=== PATIENT | male | born 1945 | race Caucasian/White ===

== ENCOUNTER 2017-12-03 08:30 | Inpatient (IN) | payer MEDICARE, BC ==
[2017-12-03 09:03] LABS: CHLORIDE,CL 97 mmol/L (98-107); SODIUM,NA 133 mmol/L (136-145)
--- NOTE | 2017-12-03 09:38 | EDM.PDOC ---
ED HPI GENERAL MEDICAL PROBLEM - General Chief Complaint: Fever Stated Complaint: Fever, Cough Time Seen by Provider: 12/03/17 09:10 Source of Information: Reports: Patient, Longterm Records History Limitations: Reports: No Limitations - History of Present Illness INITIAL COMMENTS - FREE TEXT/NARRATIVE: Patient is a 72-year-old resident of the [facility] who was brought here because of hypoxia his oxygen saturations at home were 80% on room air improved to about 92% on 3 L associated with the symptoms were fever cough and chest congestion patient was transferred for evaluation Onset: Gradual Duration: Day(s): (one), Getting Worse Location: Reports: Chest Quality: Reports: Ache Severity: Moderate Improves with: Reports: None Worsens with: Reports: None Context: Reports: Activity Treatments CHERRY GROWER: Reports: Oxygen - Related Data Allergies Allergy/AdvReac Type Severity Reaction Status Date / Time No Known Allergies Allergy Verified 09/06/17 14:15 Home Meds: Home Meds Acetaminophen [Tylenol Extra Strength] 1,000 mg PO DAILY PRN 08/28/14 [History] Acetaminophen [Tylenol Extra Strength] 1,000 mg PO DAILY@1200 08/28/14 [History] Aspirin [Children's Aspirin] 81 mg PO QAM 08/28/14 [History] Benztropine Mesylate 0.5 mg PO BID 08/28/14 [History] Bisacodyl [Dulcolax] 5 - 15 mg PO DAILY PRN 08/28/14 [History] Cholecalciferol (Vitamin D3) [Vitamin D] 2,000 units PO QAM 08/28/14 [History] Cyclobenzaprine [Flexeril] 10 mg PO DAILY@1200 08/28/14 [History] Phenytoin Sodium Extended 300 mg PO BEDTIME 08/28/14 [History] Simvastatin [Zocor] 40 mg PO BEDTIME 08/28/14 [History] carBAMazepine [TEGretol XR] 100 mg PO BID 08/28/14 [History] carBAMazepine [TEGretol XR] 200 mg PO BID 08/28/14 [History] Aspirin [Halfprin] 81 mg PO DAILY 12/03/17 [History] diphenhydrAMINE HCl/Zinc Acet [Benadryl Itch Stopping Crm] 28.3 gm TP Q4HR PRN 12/03/17 [History] Social & Family History - Tobacco Use Smoking Status *Q: Former Smoker ED ROS GENERAL - Review of Systems Review Of Systems: See Below Constitutional: Reports: Weakness HEENT: Reports: Rhinitis Respiratory: Reports: Shortness of Breath, Wheezing, Cough, Sputum Cardiovascular: Reports: Palpitations Endocrine: Reports: No Symptoms GI/Abdominal: Reports: No Symptoms, Constipation : Reports: No Symptoms Musculoskeletal: Reports: No Symptoms Skin: Reports: No Symptoms Neurological: Reports: Seizure (By history last seizure many years ago), Difficulty Walking, Gait Disturbance, Other (Right side paralysis unable to move his arm but just to the fingers able to ambulate does wear brace) Psychiatric: Reports: Depression Hematologic/Lymphatic: Reports: No Symptoms Immunologic: Reports: No Symptoms ED EXAM, GENERAL - Physical Exam Exam: See Below Exam Limited By: Physical Impairment General Appearance: Alert, WD/WN, No Apparent Distress Ears: Normal External Exam, Normal Canal, Hearing Grossly Normal, Normal TMs Ear Exam: Bilateral Ear: Auricle Normal, Canal Normal, TM normal Nose: Nasal Drainage, Clear Rhinorrhea Throat/Mouth: Normal Inspection Neck: Normal Inspection, Supple, Non-Tender, Full Range of Motion Respiratory/Chest: Decreased Breath Sounds, Rales Cardiovascular: Regular Rate, Rhythm GI/Abdominal: Normal Bowel Sounds, No Organomegaly, No Mass (Male) Exam: Deferred Rectal (Males) Exam: Deferred Back Exam: Decreased Range of Motion, Muscle Spasm Extremities: Limited Range of Motion (Right leg and right arm) Neurological: Alert, Oriented, CN II-XII Intact, Normal Cognition, Normal Gait, Normal Reflexes, No Motor/Sensory Deficits Psychiatric: Depressed Mood Skin Exam: Warm, Dry, Intact, Normal Color, No Rash Lymphatic: No Adenopathy Course - Vital Signs Last Recorded V/S: Last Vital Signs Temp 102.5 F H 12/03/17 08:30 Pulse 115 H 12/03/17 08:30 Resp 28 H 12/03/17 08:30 BP 138/72 12/03/17 08:30 Pulse Ox 80 L 12/03/17 08:30 - Orders/Labs/Meds Orders: Active Orders 24 hr Category Date Time Status EKG Documentation Completion [RC] ASDIRECTED Care 12/03/17 09:09 Ordered Oxygen Therapy Adult [Oxygen Therapy, ED] [RC] Care 12/03/17 08:30 Active CONTINUOUS Chest 2V [CR] Stat Exams 12/03/17 08:31 Ordered CULTURE BLOOD [BC] Stat Lab 12/03/17 08:35 Received CULTURE BLOOD [BC] Stat Lab 12/03/17 08:45 Received TROPONIN I [CHEM] Stat Lab 12/03/17 Ordered EKG 12 Lead [EK] Stat Ther 12/03/17 09:08 Ordered Labs: Laboratory Tests 12/03/17 12/03/17 12/03/17 Range/Units 08:35 08:35 08:35 WBC 7.7 (4.0-10.2) K/uL RBC 4.65 (4.33-5.41) M/uL Hgb 14.5 (13.1-16.8) g/dL Hct 43.0 (39.0-49.0) % MCV 92.5 (84.0-98.0) fL MCH 31.2 (28.2-33.3) pg MCHC 33.7 (31.7-36.0) g/dL RDW 13.6 (11.2-14.1) % Plt Count 172 (150-350) K/uL Neut % (Auto) 77.0 (45.0-80.0) % Lymph % (Auto) 4.8 L (10.0-50.0) % [place] % (Auto) 17.5 H (2.0-14.0) % Eos % (Auto) 0.4 (0.0-5.0) % Baso % (Auto) 0.3 (0.0-2.0) % Neut # (Auto) 5.95 (1.40-7.00) K/uL Lymph # (Auto) 0.37 L (0.50-3.50) K/uL [place] # (Auto) 1.35 H (0.00-1.00) K/uL Eos # (Auto) 0.03 (0.00-0.50) K/uL Baso # (Auto) 0.02 (0.00-0.20) K/uL Sodium 133 L (136-145) mmol/L Potassium 4.7 (3.5-5.1) mmol/L Chloride 97 L (98-107) mmol/L Carbon Dioxide 26.2 (21.0-32.0) mmol/L BUN 16 (7-18) mg/dL Creatinine 0.73 (0.51-1.17) mg/dL Est Cr Clr Drug Dosing 75.78 mL/min Estimated GFR (MDRD) > 60 mL/min Glucose 115 H (74-106) mg/dL Lactic Acid 0.9 (0.4-2.0) mmol/L Calcium 8.3 L (8.5-10.1) mg/dL NT-Pro-B Natriuret Pep 276 H (0-125) pg/mL Departure - Departure Time of Disposition: 10:28 Disposition: Admitted As Inpatient 68 Condition: Fair Clinical Impression: Pneumonia, Hypoxia, Pneumonia, aspiration, Tachycardia with heart rate 100-120 beats per minute - Discharge Information Referrals: Sheets-Annamaria Welch MD [Primary Care Provider] - - Problem List & Annotations (1) Hypoxia SNOMED Code(s): 887496874 Code(s): R09.02 - HYPOXEMIA Status: Acute Annotation/Comment:: Secondary to pneumonia history of COPD which complicates condition (2) Pneumonia, aspiration SNOMED Code(s): 409946571 Code(s): J69.0 - PNEUMONITIS DUE TO INHALATION OF FOOD AND VOMIT Status: Acute (3) Pneumonia, aspiration SNOMED Code(s): 969472798 Code(s): J69.0 - PNEUMONITIS DUE TO INHALATION OF FOOD AND VOMIT Status: Acute Annotation/Comment:: Patient will be admitted to the hospital for supplemental oxygen and antibiotics until cultures return Qualifiers: Aspiration pneumonia type: due to regurgitated food Lung location: lower lobe of lung Qualified Code(s): J69.0 - Pneumonitis due to inhalation of food and vomit (4) Tachycardia with heart rate 100-120 beats per minute SNOMED Code(s): 8386963 Code(s): R00.0 - TACHYCARDIA, UNSPECIFIED Status: Acute Annotation/ Comment:: Secondary to pneumonia and hypoxia once pneumonia is treated patient tachycardia should resolve - Problem List Review Problem List Initiated/Reviewed/Updated: Yes - My Orders Last 24 Hours: My Active Orders 12/03/17 TROPONIN I [CHEM] Stat 12/03/17 08:30 Oxygen Therapy Adult [Oxygen Therapy, ED] [RC] CONTINUOUS 12/03/17 08:31 Chest 2V [CR] Stat 12/03/17 08:35 CULTURE BLOOD [BC] Stat 12/03/17 08:45 CULTURE BLOOD [BC] Stat 12/03/17 09:08 EKG 12 Lead [EK] Stat 12/03/17 09:09 EKG Documentation Completion [RC] ASDIRECTED - Assessment/Plan Admission H&P: Please use this note as an admission H&P Last 24 Hours: My Active Orders 12/03/17 TROPONIN I [CHEM] Stat 12/03/17 08:30 Oxygen Therapy Adult [Oxygen Therapy, ED] [RC] CONTINUOUS 12/03/17 08:31 Chest 2V [CR] Stat 12/03/17 08:35 CULTURE BLOOD [BC] Stat 12/03/17 08:45 CULTURE BLOOD [BC] Stat 12/03/17 09:08 EKG 12 Lead [EK] Stat 12/03/17 09:09 EKG Documentation Completion [RC] ASDIRECTED Plan: Plan is to admit the patient at this time [facility] patient [facility] to stay here I will admit him to Dr. barnes service
[2017-12-03] MEDS: Albuterol/Ipratropium 3.0-0.5 MG/3 ML Neb Soln NEB ONE (10:04)
[2017-12-03] MEDS ORDERED: Piperacillin/Tazobactam 3.375 GM in Sodium Chloride 0.9% 100 ML IV SCH (10:45)
[2017-12-03] MEDS: Albuterol/Ipratropium 3.0-0.5 MG/3 ML Neb Soln NEB SCH ×3 (11:34→19:58)
[2017-12-03] MEDS: Levofloxacin/Dextrose 5%-Water 500 MG in Premix Bag 1 BAG IV SCH (11:43)
[2017-12-03] MEDS: Sodium Chloride 0.9% 10 ML Syringe FLUSH PRN (11:45)
[2017-12-03] MEDS: Acetaminophen 500 MG Tab PO PRN (12:14)
[2017-12-03] MEDS: Sodium Chloride 0.9% 1,000 ML IV SCH (12:50)
[2017-12-03] MEDS: Piperacillin/Tazobactam 3.375 GM in Sodium Chloride 0.9% 100 ML IV SCH ×2 (15:06→19:58)
[2017-12-03] MEDS: Bisacodyl 5 MG Tab PO PRN (15:07)
[2017-12-03] MEDS: BENZTROPINE MESYLATE 0.5 MG PO SCH (17:33)
[2017-12-03] MEDS: methylPREDNISolone Sodium Succinate 125 MG/2 ML SDV IVPUSH SCH (20:34)
[2017-12-04] MEDS: Acetaminophen 500 MG Tab PO PRN (00:28)
[2017-12-04] MEDS: Albuterol/Ipratropium 3.0-0.5 MG/3 ML Neb Soln NEB SCH ×6 (00:28→19:37)
[2017-12-04] MEDS: methylPREDNISolone Sodium Succinate 125 MG/2 ML SDV IVPUSH SCH ×3 (01:45→19:36)
[2017-12-04] MEDS: Piperacillin/Tazobactam 3.375 GM in Sodium Chloride 0.9% 100 ML IV SCH ×4 (01:45→19:37)
[2017-12-04] MEDS: Sodium Chloride 0.9% 1,000 ML IV SCH ×2 (05:21→06:36)
[2017-12-04 07:59] LABS: CHLORIDE,CL 98 mmol/L (98-107); SODIUM,NA 134 mmol/L (136-145)
[2017-12-04] MEDS ORDERED: Aspirin 81 MG Tab.Chew PO SCH (08:00)
[2017-12-04] MEDS: Aspirin 81 MG Tab.EC PO SCH (08:06)
[2017-12-04] MEDS: Enoxaparin 30 MG/0.3 ML Syringe SUBCUT SCH (08:06)
[2017-12-04] MEDS: BENZTROPINE MESYLATE 0.5 MG PO SCH (08:20)
[2017-12-04] MEDS: Levofloxacin/Dextrose 5%-Water 500 MG in Premix Bag 1 BAG IV SCH (09:53)
[2017-12-04] MEDS: carBAMazepine 200 MG TAB.ER PO SCH ×2 (12:44→19:39)
[2017-12-04] MEDS: Albuterol/Ipratropium 3.0-0.5 MG/3 ML Neb Soln NEB ONE (12:47)
[2017-12-04] MEDS: metroNIDAZOLE/Normal Saline 500 MG in Premix Bag 1 BAG IV SCH ×2 (12:54→20:24)
[2017-12-04] MEDS: Cyclobenzaprine 10 MG Tab PO SCH (12:55)
[2017-12-04] MEDS: Acetaminophen 500 MG Tab PO SCH (12:55)
[2017-12-04] MEDS: carBAMazepine 100 MG Cap.ER PO SCH ×2 (13:18→19:38)
[2017-12-04] MEDS: Sodium Chloride 0.9% 10 ML Syringe FLUSH PRN ×2 (14:07→20:24)
[2017-12-04] MEDS: Sodium Chloride 0.9% 10 ML Syringe FLUSH SCH (19:35)
[2017-12-04] MEDS: Pantoprazole 40 MG Vial IVPUSH SCH (19:36)
[2017-12-04] MEDS: Phenytoin 100 MG Cap.ER PO SCH (19:37)
[2017-12-04] MEDS: Benztropine 1 MG Tab PO SCH (19:38)
[2017-12-04] MEDS: Simvastatin 20 MG Tab PO SCH (19:38)
--- NOTE | 2017-12-04 20:18 | PCM.PN ---
- General Info Date of Service: 12/04/17 Functional Status: Reports: Tolerating Diet - Review of Systems General: Reports: Fever HEENT: Reports: No Symptoms Pulmonary: Reports: Cough (harsh) Cardiovascular: Reports: No Symptoms Gastrointestinal: Reports: No Symptoms Genitourinary: Reports: No Symptoms Musculoskeletal: Reports: No Symptoms Skin: Reports: No Symptoms Neurological: Reports: Pre-Existing Deficit (right hemiparesis), Seizure, Difficulty Walking, Gait Disturbance, Other (right foot drop, expressive dysphasia) Psychiatric: Reports: No Symptoms - Patient Data Vitals - Most Recent: Last Vital Signs Temp 99.7 F 12/04/17 20:00 Pulse 105 H 12/04/17 20:00 Resp 20 12/04/17 20:00 BP 146/85 H 12/04/17 20:00 Pulse Ox 97 12/04/17 20:00 Weight - Most Recent: 162 lb 0.001 oz I&O - Last 24 Hours: Intake & Output 12/04/17 12/04/17 12/04/17 06:59 14:59 22:59 Intake Total 2300 1600 Output Total 550 Balance 2300 1050 Lab Results Last 24 Hours: Laboratory Results - last 24 hr 12/04/17 12/04/17 12/04/17 Range/Units 07:33 07:33 07:33 WBC 7.3 (4.0-10.2) K/uL RBC 4.42 (4.33-5.41) M/uL Hgb 13.8 (13.1-16.8) g/dL Hct 41.0 (39.0-49.0) % MCV 92.8 (84.0-98.0) fL MCH 31.2 (28.2-33.3) pg MCHC 33.7 (31.7-36.0) g/dL RDW 13.6 (11.2-14.1) % Plt Count 173 (150-350) K/uL Neut % (Auto) 89.4 H (45.0-80.0) % Lymph % (Auto) 7.7 L (10.0-50.0) % [place] % (Auto) 2.9 (2.0-14.0) % Eos % (Auto) 0.0 (0.0-5.0) % Baso % (Auto) 0.0 (0.0-2.0) % Neut # (Auto) 6.52 (1.40-7.00) K/uL Lymph # (Auto) 0.56 (0.50-3.50) K/uL [place] # (Auto) 0.21 (0.00-1.00) K/uL Eos # (Auto) 0.00 (0.00-0.50) K/uL Baso # (Auto) 0.00 (0.00-0.20) K/uL Sodium 134 L (136-145) mmol/L Potassium 3.6 (3.5-5.1) mmol/L Chloride 98 (98-107) mmol/L Carbon Dioxide 20.6 L (21.0-32.0) mmol/L BUN 13 (7-18) mg/dL Creatinine 0.71 (0.51-1.17) mg/dL Est Cr Clr Drug Dosing 77.89 mL/min Estimated GFR (MDRD) > 60 mL/min Glucose 158 H (74-106) mg/dL Calcium 7.3 L (8.5-10.1) mg/dL C-Reactive Protein 6.7 H (<=0.9) mg/dL Med Orders - Current: Current Medications Acetaminophen (Tylenol Extra Strength) 1,000 mg PO DAILY PRN PRN Reason: Pain Last Admin: 12/04/17 00:28 Dose: 1,000 mg Acetaminophen (Tylenol Extra Strength) 1,000 mg PO DAILY@1200 [facility] Last Admin: 12/04/17 12:55 Dose: 1,000 mg Albuterol (Proventil Neb Soln) 2.5 mg NEB Q2H PRN PRN Reason: Dyspnea Albuterol/Ipratropium (Duoneb 3.0-0.5 Mg/3 Ml) 3 ml NEB QIDRT [facility] Last Admin: 12/04/17 19:37 Dose: 3 ml Aspirin (Halfprin) 81 mg PO DAILY [facility] Last Admin: 12/04/17 08:06 Dose: 81 mg Benztropine Mesylate (Cogentin) 0.5 mg PO BID@0800,2000 [facility] Last Admin: 12/04/17 19:38 Dose: 0.5 mg Bisacodyl (Dulcolax) 5 - 15 mg PO DAILY PRN PRN Reason: Constipation Last Admin: 12/03/17 15:07 Dose: 15 mg Carbamazepine (Tegretol Xr) 100 mg PO BID@ [facility] Last Admin: 12/04/17 19:38 Dose: 100 mg Carbamazepine (Tegretol Er) 200 mg PO BID@ [facility] Last Admin: 12/04/17 19:39 Dose: 200 mg Cholecalciferol (Vitamin D3) 2,000 units PO QAM [facility] Cyclobenzaprine HCl (Flexeril) 10 mg PO DAILY@1200 [facility] Last Admin: 12/04/17 12:55 Dose: 10 mg Enoxaparin Sodium (Lovenox) 30 mg SUBCUT DAILY [facility] Last Admin: 12/04/17 08:06 Dose: 30 mg Piperacillin Sod/Tazobactam (Sod 3.375 gm/ Sodium Chloride) 100 mls @ 200 mls/ hr IV Q6H [facility] Last Admin: 12/04/17 19:37 Dose: 200 mls/hr Metronidazole 500 mg/ Premix 100 mls @ 100 mls/hr IV Q8H [facility] Last Admin: 12/04/17 12:54 Dose: 100 mls/hr Methylprednisolone Sodium Succinate (Solu-Medrol) 40 mg IVPUSH Q12HR [facility] Last Admin: 12/04/17 19:36 Dose: 40 mg Pantoprazole Sodium (Protonix Iv) 40 mg IVPUSH BEDTIME [facility] Last Admin: 12/04/17 19:36 Dose: 40 mg Phenytoin Sodium (Phenytoin) 300 mg PO BEDTIME [facility] Last Admin: 12/04/17 19:37 Dose: 300 mg Senna/Docusate Sodium (Senna Plus) 1 tab PO BID@ [facility] Last Admin: 12/04/17 19:38 Dose: 1 tab Simvastatin (Zocor) 40 mg PO BEDTIME [facility] Last Admin: 12/04/17 19:38 Dose: 40 mg Sodium Chloride (Saline Flush) 10 ml FLUSH ASDIRECTED PRN PRN Reason: Keep Vein Open Last Admin: 12/04/17 14:07 Dose: 10 ml Sodium Chloride (Saline Flush) 10 ml FLUSH Q12HR [facility] Last Admin: 12/04/17 19:35 Dose: 10 ml Discontinued Medications Albuterol/Ipratropium (Duoneb 3.0-0.5 Mg/3 Ml) 3 ml NEB ONETIME ONE Stop: 12/03/17 10:00 Last Admin: 12/03/17 10:04 Dose: 3 ml Albuterol/Ipratropium (Duoneb 3.0-0.5 Mg/3 Ml) 3 ml NEB Q4HRRT [facility] Last Admin: 12/04/17 12:30 Dose: 3 ml Aspirin (Aspirin) 81 mg PO QAM [facility] Last Admin: 12/04/17 13:24 Dose: Not Given Levofloxacin/Dextrose 500 mg/ (Premix) 100 mls @ 100 mls/hr IV Q24H [facility] Last Admin: 12/04/17 09:53 Dose: 100 mls/hr Piperacillin Sod/Tazobactam (Sod 3.375 gm/ Sodium Chloride) 100 mls @ 200 mls/ hr IV Q6H [facility] Last Admin: 12/03/17 12:06 Dose: Not Given Sodium Chloride (Normal Saline) 1,000 mls @ 125 mls/hr IV ASDIRECTED [facility] Last Admin: 12/04/17 06:36 Dose: 125 mls/hr Methylprednisolone Sodium Succinate (Solu-Medrol) 125 mg IVPUSH Q6H [facility] Last Admin: 12/04/17 08:03 Dose: 125 mg Non-Formulary Medication (Benztropine Mesylate [Benztropine Mesylate]) 0.5 mg PO BID [facility] Last Admin: 12/04/17 08:20 Dose: 0.5 mg - Exam Quality Assessment: DVT Prophylaxis General: Alert, Cooperative HEENT: Mucous Membr. Moist/[place] Neck: Trachea Midline, No JVD Lungs: Normal Respiratory Effort, Rhonchi, Wheezing Cardiovascular: Regular Rate, Regular Rhythm GI/Abdominal Exam: Soft, Non-Tender, No Distention (Male) Exam: Deferred Back Exam: Normal Inspection Extremities: Non-Tender, Pedal Edema (right>left) Skin: Warm, Dry, Intact Neurological: Other (right hemiparesis, pre-existing) Psy/Mental Status: Alert, Normal Affect, Normal Mood - Problem List & Annotations (1) Left sided cerebral hemisphere cerebrovascular accident SNOMED Code(s): 304067934 Code(s): I63.9 - CEREBRAL INFARCTION, UNSPECIFIED Status: Chronic Priority: Medium Current Visit: Yes (2) Hypoxia SNOMED Code(s): 684244106 Code(s): R09.02 - HYPOXEMIA Status: Acute Priority: High Current Visit : Yes Annotation/Comment:: Secondary to pneumonia history of COPD which complicates condition (3) Pneumonia, aspiration SNOMED Code(s): 130284645 Code(s): J69.0 - PNEUMONITIS DUE TO INHALATION OF FOOD AND VOMIT Status: Acute Priority: High Current Visit: Yes Qualifiers: Aspiration pneumonia type: due to gastric secretions Laterality: bilateral Lung location: lower lobe of lung Qualified Code(s): J69.0 - Pneumonitis due to inhalation of food and vomit (4) Hemiparesis affecting right side as late effect of stroke SNOMED Code(s): 791471899 Code(s): I69.351 - HEMIPLGA FOLLOWING CEREBRAL INFRC AFF RIGHT DOMINANT SIDE Status: Chronic Priority: Medium Current Visit: Yes - Problem List Review Problem List Initiated/Reviewed/Updated: Yes - My Orders Last 24 Hours: My Active Orders 12/04/17 12:00 Acetaminophen [Tylenol Extra Strength] 1,000 mg PO DAILY@1200 Albuterol [Proventil Neb Soln] 2.5 mg NEB Q2H PRN Cyclobenzaprine [Flexeril] 10 mg PO DAILY@1200 metroNIDAZOLE/Normal Saline [Flagyl 500 MG in NS 100 ML] 500 mg Premix Bag 1 bag IV Q8H 12/04/17 12:04 PT Evaluation and Treatment [CONS] Routine 12/04/17 12:05 Consult to Speech Language Pathology [[employer]CTION[employer]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 Evaluation and Treatment] [CONS] Routine OT Evaluation and Treatment [CONS] Routine 12/04/17 12:10 RT Aerosol Therapy [RC] ASDIRECTED 12/04/17 12:25 CULTURE SPUTUM + SMEAR [RM] Routine 12/04/17 12:30 carBAMazepine [TEGretol XR] 100 mg PO BID@08,199912/04/17 12:45 carBAMazepine [TEGretol ER] 200 mg PO BID@799,199912/04/17 14:20 MRSA BY PCR [MREF] Routine 12/04/17 16:00 Albuterol/Ipratropium [DuoNeb 3.0-0.5 MG/3 ML] 3 ml NEB QIDRT 12/04/17 20:00 Docusate Sodium/Sennosides [Senna Plus] 1 tab PO BID@ Pantoprazole [ProTONIX IV] 40 mg IVPUSH BEDTIME Phenytoin 300 mg PO BEDTIME Simvastatin [Zocor] 40 mg PO BEDTIME Sodium Chloride 0.9% [Saline Flush] 10 ml FLUSH Q12HR methylPREDNISolone Sod Succ [Solu-MEDROL] 40 mg IVPUSH Q12HR 12/05/17 05:11 Abdomen 2V AP Flat Upright [CR] Routine BLOOD GAS VENOUS [BG] Routine CARBAMAZEPINE,TEGRETOL [CHEM] Routine CBC WITH AUTO DIFF [HEME] DAILY CMP [COMPREHENSIVE METABOLIC PN,CMP] [CHEM] DAILY CRP [C-REACTIVE PROTEIN] [CHEM] DAILY DILANTIN,PHENYTOIN [CHEM] Routine 12/05/17 08:00 Cholecalciferol (Vitamin D3) [Vitamin D3] 2,000 units PO QAM 12/06/17 05:11 CBC WITH AUTO DIFF [HEME] DAILY CMP [COMPREHENSIVE METABOLIC PN,CMP] [CHEM] DAILY CRP [C-REACTIVE PROTEIN] [CHEM] DAILY 12/07/17 05:11 CBC WITH AUTO DIFF [HEME] DAILY CMP [COMPREHENSIVE METABOLIC PN,CMP] [CHEM] DAILY CRP [C-REACTIVE PROTEIN] [CHEM] DAILY 12/07/17 08:00 Swallowing Function w Video [CR] Routine - Plan Plan:: 12/04/17 Mark Welch MD Feeling a little bit better. Still harsh cough. Aspiration pneumonia. Continue IV antibiotics and respiratory treatments.
[2017-12-05] MEDS: Albuterol 0.083% 2.5 MG/3 ML Neb Soln NEB PRN (00:31)
[2017-12-05] MEDS: Acetaminophen 500 MG Tab PO PRN ×2 (00:37→21:28)
[2017-12-05] MEDS: Sodium Chloride 0.9% 10 ML Syringe FLUSH PRN ×5 (01:40→19:31)
[2017-12-05] MEDS: Piperacillin/Tazobactam 3.375 GM in Sodium Chloride 0.9% 100 ML IV SCH ×4 (01:40→19:26)
[2017-12-05] MEDS: metroNIDAZOLE/Normal Saline 500 MG in Premix Bag 1 BAG IV SCH ×3 (04:05→20:09)
[2017-12-05 07:10] LABS: O2 DELIVERY DEVICE ROOM AIR
[2017-12-05 07:26] LABS: CHLORIDE,CL 101 mmol/L (98-107); SODIUM,NA 138 mmol/L (136-145)
[2017-12-05 07:35] LABS: BASE EXCESS VENOUS -2 mmol/L ((-2)-3); BICARBONATE,VENOUS 24 mmol/L (23-28); O2 SATURATION VENOUS 91 %; PCO2 VENOUS 47 mmHG (41-51); PH,VENOUS 7.32 (7.31-7.41); PO2 VENOUS 66 mmHG
[2017-12-05] MEDS: Aspirin 81 MG Tab.EC PO SCH (09:25)
[2017-12-05] MEDS: Cholecalciferol (Vitamin D3) 1,000 Unit Tab PO SCH (09:25)
[2017-12-05] MEDS: Benztropine 1 MG Tab PO SCH ×2 (09:25→19:28)
[2017-12-05] MEDS: Enoxaparin 30 MG/0.3 ML Syringe SUBCUT SCH (09:25)
[2017-12-05] MEDS: methylPREDNISolone Sodium Succinate 125 MG/2 ML SDV IVPUSH SCH ×2 (09:26→19:27)
[2017-12-05] MEDS: Albuterol/Ipratropium 3.0-0.5 MG/3 ML Neb Soln NEB SCH ×5 (09:27→19:27)
[2017-12-05] MEDS: Sodium Chloride 0.9% 10 ML Syringe FLUSH SCH ×2 (09:27→19:29)
[2017-12-05] MEDS: carBAMazepine 200 MG TAB.ER PO SCH ×2 (09:42→19:28)
[2017-12-05] MEDS: carBAMazepine 100 MG Cap.ER PO SCH ×2 (09:42→19:29)
[2017-12-05] MEDS: Acetaminophen 500 MG Tab PO SCH (12:07)
[2017-12-05] MEDS: Cyclobenzaprine 10 MG Tab PO SCH (12:07)
[2017-12-05] MEDS: Potassium Chloride 10 MEQ Tab.ER PO SCH ×2 (13:26→17:51)
[2017-12-05] MEDS: Pantoprazole 40 MG Vial IVPUSH SCH (19:27)
[2017-12-05] MEDS: Phenytoin 100 MG Cap.ER PO SCH (19:28)
[2017-12-05] MEDS: Simvastatin 20 MG Tab PO SCH (19:29)
--- NOTE | 2017-12-05 23:05 | PCM.PN ---
- General Info Date of Service: 12/05/17 Functional Status: Reports: Pain Controlled - Review of Systems General: Reports: No Symptoms HEENT: Reports: No Symptoms Pulmonary: Reports: Shortness of Breath (markedly improved) Cardiovascular: Reports: No Symptoms Gastrointestinal: Reports: No Symptoms Genitourinary: Reports: No Symptoms Musculoskeletal: Reports: Joint Pain (right elbow pain), Joint Swelling (right elbow) Skin: Reports: No Symptoms Neurological: Reports: Pre-Existing Deficit, Trouble Speaking, Difficulty Walking, Gait Disturbance Psychiatric: Reports: No Symptoms - Patient Data Vitals - Most Recent: Last Vital Signs Temp 98.9 F 12/05/17 19:24 Pulse 79 12/05/17 19:24 Resp 20 12/05/17 19:24 BP 134/85 12/05/17 19:24 Pulse Ox 93 L 12/05/17 19:24 Weight - Most Recent: 162 lb 0.001 oz I&O - Last 24 Hours: Intake & Output 12/05/17 12/05/17 12/05/17 06:59 14:59 22:59 Intake Total 420 1560 360 Output Total 700 Balance -280 1560 360 Lab Results Last 24 Hours: Laboratory Results - last 24 hr 12/05/17 12/05/17 12/05/17 Range/Units 06:43 06:43 06:43 WBC 7.5 (4.0-10.2) K/uL RBC 4.22 L (4.33-5.41) M/uL Hgb 13.2 (13.1-16.8) g/dL Hct 39.0 (39.0-49.0) % MCV 92.4 (84.0-98.0) fL MCH 31.3 (28.2-33.3) pg MCHC 33.8 (31.7-36.0) g/dL RDW 13.3 (11.2-14.1) % Plt Count 194 (150-350) K/uL Neut % (Auto) 73.3 (45.0-80.0) % Lymph % (Auto) 11.6 (10.0-50.0) % [place] % (Auto) 15.0 H (2.0-14.0) % Eos % (Auto) 0.0 (0.0-5.0) % Baso % (Auto) 0.1 (0.0-2.0) % Neut # (Auto) 5.47 (1.40-7.00) K/uL Lymph # (Auto) 0.87 (0.50-3.50) K/uL [place] # (Auto) 1.12 H (0.00-1.00) K/uL Eos # (Auto) 0.00 (0.00-0.50) K/uL Baso # (Auto) 0.01 (0.00-0.20) K/uL VBG pH 7.32 (7.31-7.41) VBG pCO2 47 (41-51) mmHG VBG pO2 66 mmHG VBG HCO3 24 (23-28) mmol/L VBG Total CO2 26 mmol/L VBG O2 Saturation 91 % VBG Base Excess -2 ((-2)-3) mmol/L O2 Delivery Device Room air Sodium 138 (136-145) mmol/L Potassium 3.3 L (3.5-5.1) mmol/L Chloride 101 (98-107) mmol/L Carbon Dioxide 25.5 (21.0-32.0) mmol/L BUN 10 (7-18) mg/dL Creatinine 0.71 (0.51-1.17) mg/dL Est Cr Clr Drug Dosing 77.89 mL/min Estimated GFR (MDRD) > 60 mL/min Glucose 98 (74-106) mg/dL Calcium 7.4 L (8.5-10.1) mg/dL Total Bilirubin 0.2 (0.2-1.0) mg/dL AST 25 (15-37) U/L ALT 24 (12-78) U/L Alkaline Phosphatase 55 (46-116) IU/L C-Reactive Protein 2.8 H (<=0.9) mg/dL Total Protein 6.4 (6.4-8.2) g/dL Albumin 3.1 L (3.4-5.0) g/dL Phenytoin 5 L (10-20) ug/dL Carbamazepine 7 (4-12) ug/mL Med Orders - Current: Current Medications Acetaminophen (Tylenol Extra Strength) 1,000 mg PO DAILY PRN PRN Reason: Pain Last Admin: 12/05/17 21:28 Dose: 1,000 mg Acetaminophen (Tylenol Extra Strength) 1,000 mg PO DAILY@1200 [facility] Last Admin: 12/05/17 12:07 Dose: 1,000 mg Albuterol (Proventil Neb Soln) 2.5 mg NEB Q2H PRN PRN Reason: Dyspnea Last Admin: 12/05/17 00:31 Dose: 2.5 mg Albuterol/Ipratropium (Duoneb 3.0-0.5 Mg/3 Ml) 3 ml NEB QIDRT [facility] Last Admin: 12/05/17 19:27 Dose: 3 ml Aspirin (Halfprin) 81 mg PO DAILY [facility] Last Admin: 12/05/17 09:25 Dose: 81 mg Benztropine Mesylate (Cogentin) 0.5 mg PO BID@ [facility] Last Admin: 12/05/17 19:28 Dose: 0.5 mg Bisacodyl (Dulcolax) 5 - 15 mg PO DAILY PRN PRN Reason: Constipation Last Admin: 12/03/17 15:07 Dose: 15 mg Carbamazepine (Tegretol Xr) 100 mg PO BID@ [facility] Last Admin: 12/05/17 19:29 Dose: 100 mg Carbamazepine (Tegretol Er) 200 mg PO BID@ [facility] Last Admin: 12/05/17 19:28 Dose: 200 mg Cholecalciferol (Vitamin D3) 2,000 units PO QAM [facility] Last Admin: 12/05/17 09:25 Dose: 2,000 units Cyclobenzaprine HCl (Flexeril) 10 mg PO DAILY@1200 [facility] Last Admin: 12/05/17 12:07 Dose: 10 mg Enoxaparin Sodium (Lovenox) 30 mg SUBCUT DAILY [facility] Last Admin: 12/05/17 09:25 Dose: 30 mg Piperacillin Sod/Tazobactam (Sod 3.375 gm/ Sodium Chloride) 100 mls @ 200 mls/ hr IV Q6H [facility] Last Admin: 12/05/17 19:26 Dose: 200 mls/hr Metronidazole 500 mg/ Premix 100 mls @ 100 mls/hr IV Q8H [facility] Last Admin: 12/05/17 20:09 Dose: 100 mls/hr Methylprednisolone Sodium Succinate (Solu-Medrol) 40 mg IVPUSH Q12HR [facility] Last Admin: 12/05/17 19:27 Dose: 40 mg Pantoprazole Sodium (Protonix Iv) 40 mg IVPUSH BEDTIME [facility] Last Admin: 12/05/17 19:27 Dose: 40 mg Phenytoin Sodium (Phenytoin) 300 mg PO BEDTIME [facility] Last Admin: 12/05/17 19:28 Dose: 300 mg Potassium Chloride (Klor-Con 10) 10 meq PO BID [facility] Last Admin: 12/05/17 17:51 Dose: 10 meq Senna/Docusate Sodium (Senna Plus) 1 tab PO BID@0800,2000 [facility] Last Admin: 12/05/17 19:28 Dose: 1 tab Simvastatin (Zocor) 40 mg PO BEDTIME [facility] Last Admin: 12/05/17 19:29 Dose: 40 mg Sodium Chloride (Saline Flush) 10 ml FLUSH ASDIRECTED PRN PRN Reason: Keep Vein Open Last Admin: 12/05/17 19:31 Dose: 10 ml Sodium Chloride (Saline Flush) 10 ml FLUSH Q12HR [facility] Last Admin: 12/05/17 19:29 Dose: 10 ml Discontinued Medications Albuterol/Ipratropium (Duoneb 3.0-0.5 Mg/3 Ml) 3 ml NEB ONETIME ONE Stop: 12/03/17 10:00 Last Admin: 12/03/17 10:04 Dose: 3 ml Albuterol/Ipratropium (Duoneb 3.0-0.5 Mg/3 Ml) 3 ml NEB Q4HRRT [facility] Last Admin: 12/04/17 12:30 Dose: 3 ml Aspirin (Aspirin) 81 mg PO QAM [facility] Last Admin: 12/04/17 13:24 Dose: Not Given Levofloxacin/Dextrose 500 mg/ (Premix) 100 mls @ 100 mls/hr IV Q24H [facility] Last Admin: 12/04/17 09:53 Dose: 100 mls/hr Piperacillin Sod/Tazobactam (Sod 3.375 gm/ Sodium Chloride) 100 mls @ 200 mls/ hr IV Q6H [facility] Last Admin: 12/03/17 12:06 Dose: Not Given Sodium Chloride (Normal Saline) 1,000 mls @ 125 mls/hr IV ASDIRECTED [facility] Last Admin: 12/04/17 06:36 Dose: 125 mls/hr Methylprednisolone Sodium Succinate (Solu-Medrol) 125 mg IVPUSH Q6H [facility] Last Admin: 12/04/17 08:03 Dose: 125 mg Non-Formulary Medication (Benztropine Mesylate [Benztropine Mesylate]) 0.5 mg PO BID [facility] Last Admin: 12/04/17 08:20 Dose: 0.5 mg - Exam General: Alert, Cooperative, No Acute Distress HEENT: Mucous Membr. Moist/[place] Neck: Trachea Midline, No JVD Lungs: Normal Respiratory Effort, Decreased Breath Sounds Cardiovascular: Regular Rate, Regular Rhythm GI/Abdominal Exam: Soft, Non-Tender, No Distention (Male) Exam: Deferred Back Exam: Normal Inspection Extremities: Non-Tender, Pedal Edema, Joint Swelling (right elbow) Skin: Warm, Dry, Intact, Rash (bilateral lower extremities hyper-ruber and hemosiderosis) Neurological: Other (pre-existing deficit) Psy/Mental Status: Alert, Normal Affect, Normal Mood - Problem List & Annotations (1) Left sided cerebral hemisphere cerebrovascular accident SNOMED Code(s): 191244791 Code(s): I63.9 - CEREBRAL INFARCTION, UNSPECIFIED Status: Chronic Priority: Medium Current Visit: Yes (2) Hypoxia SNOMED Code(s): 448358354 Code(s): R09.02 - HYPOXEMIA Status: Acute Priority: High Current Visit : Yes Annotation/Comment:: Secondary to pneumonia history of COPD which complicates condition (3) Pneumonia, aspiration SNOMED Code(s): 428805588 Code(s): J69.0 - PNEUMONITIS DUE TO INHALATION OF FOOD AND VOMIT Status: Acute Priority: High Current Visit: Yes Qualifiers: Aspiration pneumonia type: due to gastric secretions Laterality: bilateral Lung location: lower lobe of lung Qualified Code(s): J69.0 - Pneumonitis due to inhalation of food and vomit (4) Hemiparesis affecting right side as late effect of stroke SNOMED Code(s): 298527024 Code(s): I69.351 - HEMIPLGA FOLLOWING CEREBRAL INFRC AFF RIGHT DOMINANT SIDE Status: Chronic Priority: Medium Current Visit: Yes - Problem List Review Problem List Initiated/Reviewed/Updated: Yes - My Orders Last 24 Hours: My Active Orders 12/05/17 05:11 Abdomen 2V AP Flat Upright [CR] Routine 12/05/17 08:00 Cholecalciferol (Vitamin D3) [Vitamin D3] 2,000 units PO QAM 12/05/17 12:45 Potassium Chloride [Klor-Con 10] 10 meq PO BID 12/05/17 Breakfast Regular Diet [DIET] 12/06/17 05:11 CBC WITH AUTO DIFF [HEME] DAILY CMP [COMPREHENSIVE METABOLIC PN,CMP] [CHEM] DAILY CRP [C-REACTIVE PROTEIN] [CHEM] DAILY 12/07/17 05:11 CBC WITH AUTO DIFF [HEME] DAILY CMP [COMPREHENSIVE METABOLIC PN,CMP] [CHEM] DAILY CRP [C-REACTIVE PROTEIN] [CHEM] DAILY 12/07/17 08:00 Swallowing Function w Video [CR] Routine - Plan Plan:: 12/04/17 Mark Welch MD Feeling a little bit better. Still harsh cough. Aspiration pneumonia. Continue IV antibiotics and respiratory treatments. 12/05/17 Mark Welch MD Feels even better today. Less cough. Some right elbow pain and swelling but feels better with elbow sleeve on.
[2017-12-06] MEDS: Piperacillin/Tazobactam 3.375 GM in Sodium Chloride 0.9% 100 ML IV SCH ×4 (02:39→19:18)
[2017-12-06] MEDS: Sodium Chloride 0.9% 10 ML Syringe FLUSH PRN ×4 (02:39→19:17)
[2017-12-06] MEDS: Albuterol 0.083% 2.5 MG/3 ML Neb Soln NEB PRN (02:43)
[2017-12-06] MEDS: metroNIDAZOLE/Normal Saline 500 MG in Premix Bag 1 BAG IV SCH ×3 (03:13→19:18)
[2017-12-06 07:33] LABS: CHLORIDE,CL 102 mmol/L (98-107); SODIUM,NA 138 mmol/L (136-145)
[2017-12-06] MEDS: Sodium Chloride 0.9% 10 ML Syringe FLUSH SCH ×2 (08:09→19:17)
[2017-12-06] MEDS: Enoxaparin 30 MG/0.3 ML Syringe SUBCUT SCH (08:09)
[2017-12-06] MEDS: Albuterol/Ipratropium 3.0-0.5 MG/3 ML Neb Soln NEB SCH ×4 (08:09→19:17)
[2017-12-06] MEDS: carBAMazepine 100 MG Cap.ER PO SCH ×2 (08:10→19:18)
[2017-12-06] MEDS: Potassium Chloride 10 MEQ Tab.ER PO SCH ×2 (08:10→17:15)
[2017-12-06] MEDS: Cholecalciferol (Vitamin D3) 1,000 Unit Tab PO SCH (08:10)
[2017-12-06] MEDS: methylPREDNISolone Sodium Succinate 125 MG/2 ML SDV IVPUSH SCH ×2 (08:10→19:17)
[2017-12-06] MEDS: Benztropine 1 MG Tab PO SCH ×2 (08:11→19:17)
[2017-12-06] MEDS: Aspirin 81 MG Tab.EC PO SCH (08:11)
[2017-12-06] MEDS: carBAMazepine 200 MG TAB.ER PO SCH ×2 (08:18→19:18)
[2017-12-06] MEDS ORDERED: Calcium Carbonate 750 MG Tab.Chew PO PRN (09:11)
[2017-12-06] MEDS: Acetaminophen 500 MG Tab PO SCH (12:04)
[2017-12-06] MEDS: Cyclobenzaprine 10 MG Tab PO SCH (12:05)
--- NOTE | 2017-12-06 18:20 | PCM.PN ---
- General Info Date of Service: 12/06/17 Functional Status: Reports: Pain Controlled, Tolerating Diet - Review of Systems General: Reports: No Symptoms HEENT: Reports: No Symptoms Pulmonary: Reports: Cough (improving) Cardiovascular: Reports: No Symptoms Gastrointestinal: Reports: No Symptoms Genitourinary: Reports: No Symptoms Musculoskeletal: Reports: No Symptoms Skin: Reports: No Symptoms Neurological: Reports: Pre-Existing Deficit Psychiatric: Reports: No Symptoms - Patient Data Vitals - Most Recent: Last Vital Signs Temp 97.7 F 12/06/17 16:00 Pulse 90 12/06/17 16:00 Resp 19 12/06/17 16:00 BP 124/76 12/06/17 16:00 Pulse Ox 95 12/06/17 16:00 Weight - Most Recent: 162 lb 0.001 oz I&O - Last 24 Hours: Intake & Output 12/06/17 12/06/17 12/06/17 06:59 14:59 22:59 Intake Total 240 660 Output Total 300 600 Balance -60 60 Lab Results Last 24 Hours: Laboratory Results - last 24 hr 12/06/17 12/06/17 Range/Units 06:31 06:31 WBC 5.7 (4.0-10.2) K/uL RBC 3.98 L (4.33-5.41) M/uL Hgb 12.4 L (13.1-16.8) g/dL Hct 37.0 L (39.0-49.0) % MCV 93.0 (84.0-98.0) fL MCH 31.2 (28.2-33.3) pg MCHC 33.5 (31.7-36.0) g/dL RDW 13.6 (11.2-14.1) % Plt Count 170 (150-350) K/uL Neut % (Auto) 76.8 (45.0-80.0) % Lymph % (Auto) 11.3 (10.0-50.0) % [place] % (Auto) 11.7 (2.0-14.0) % Eos % (Auto) 0.0 (0.0-5.0) % Baso % (Auto) 0.2 (0.0-2.0) % Neut # (Auto) 4.34 (1.40-7.00) K/uL Lymph # (Auto) 0.64 (0.50-3.50) K/uL [place] # (Auto) 0.66 (0.00-1.00) K/uL Eos # (Auto) 0.00 (0.00-0.50) K/uL Baso # (Auto) 0.01 (0.00-0.20) K/uL Sodium 138 (136-145) mmol/L Potassium 3.7 (3.5-5.1) mmol/L Chloride 102 (98-107) mmol/L Carbon Dioxide 28.4 (21.0-32.0) mmol/L BUN 10 (7-18) mg/dL Creatinine 0.70 (0.51-1.17) mg/dL Est Cr Clr Drug Dosing 79.00 mL/min Estimated GFR (MDRD) > 60 mL/min Glucose 120 H (74-106) mg/dL Calcium 7.3 L (8.5-10.1) mg/dL Total Bilirubin 0.2 (0.2-1.0) mg/dL AST 27 (15-37) U/L ALT 23 (12-78) U/L Alkaline Phosphatase 44 L (46-116) IU/L C-Reactive Protein 1.4 H (<=0.9) mg/dL Total Protein 5.9 L (6.4-8.2) g/dL Albumin 2.9 L (3.4-5.0) g/dL [place] Results Last 24 Hours: Microbiology 12/04/17 14:20 MRSA (PCR) - Final Nasal, Unspecified Med Orders - Current: Current Medications Acetaminophen (Tylenol Extra Strength) 1,000 mg PO DAILY PRN PRN Reason: Pain Last Admin: 12/05/17 21:28 Dose: 1,000 mg Acetaminophen (Tylenol Extra Strength) 1,000 mg PO DAILY@1200 [facility] Last Admin: 12/06/17 12:04 Dose: 1,000 mg Albuterol (Proventil Neb Soln) 2.5 mg NEB Q2H PRN PRN Reason: Dyspnea Last Admin: 12/06/17 02:43 Dose: 2.5 mg Albuterol/Ipratropium (Duoneb 3.0-0.5 Mg/3 Ml) 3 ml NEB QIDRT [facility] Last Admin: 12/06/17 16:10 Dose: 3 ml Aspirin (Halfprin) 81 mg PO DAILY [facility] Last Admin: 12/06/17 08:11 Dose: 81 mg Benztropine Mesylate (Cogentin) 0.5 mg PO BID@ [facility] Last Admin: 12/06/17 08:11 Dose: 0.5 mg Bisacodyl (Dulcolax) 5 - 15 mg PO DAILY PRN PRN Reason: Constipation Last Admin: 12/03/17 15:07 Dose: 15 mg Calcium Carbonate/Glycine (Tums Extra Strength) 750 mg PO Q2HR PRN PRN Reason: Indigestion Carbamazepine (Tegretol Xr) 100 mg PO BID@ [facility] Last Admin: 12/06/17 08:10 Dose: 100 mg Carbamazepine (Tegretol Er) 200 mg PO BID@ [facility] Last Admin: 12/06/17 08:18 Dose: 200 mg Cholecalciferol (Vitamin D3) 2,000 units PO QAM [facility] Last Admin: 12/06/17 08:10 Dose: 2,000 units Cyclobenzaprine HCl (Flexeril) 10 mg PO DAILY@1200 [facility] Last Admin: 12/06/17 12:05 Dose: 10 mg Enoxaparin Sodium (Lovenox) 30 mg SUBCUT DAILY [facility] Last Admin: 12/06/17 08:09 Dose: 30 mg Piperacillin Sod/Tazobactam (Sod 3.375 gm/ Sodium Chloride) 100 mls @ 200 mls/ hr IV Q6H [facility] Last Admin: 12/06/17 14:44 Dose: 200 mls/hr Metronidazole 500 mg/ Premix 100 mls @ 100 mls/hr IV Q8H [facility] Last Admin: 12/06/17 12:04 Dose: 100 mls/hr Methylprednisolone Sodium Succinate (Solu-Medrol) 40 mg IVPUSH Q12HR [facility] Last Admin: 12/06/17 08:10 Dose: 40 mg Pantoprazole Sodium (Protonix Iv) 40 mg IVPUSH BEDTIME [facility] Last Admin: 12/05/17 19:27 Dose: 40 mg Phenytoin Sodium (Phenytoin) 300 mg PO BEDTIME [facility] Last Admin: 12/05/17 19:28 Dose: 300 mg Potassium Chloride (Klor-Con 10) 10 meq PO BID [facility] Last Admin: 12/06/17 17:15 Dose: 10 meq Senna/Docusate Sodium (Senna Plus) 1 tab PO BID@0800,2000 [facility] Last Admin: 12/06/17 08:11 Dose: 1 tab Simvastatin (Zocor) 40 mg PO BEDTIME [facility] Last Admin: 12/05/17 19:29 Dose: 40 mg Sodium Chloride (Saline Flush) 10 ml FLUSH ASDIRECTED PRN PRN Reason: Keep Vein Open Last Admin: 12/06/17 14:43 Dose: 10 ml Sodium Chloride (Saline Flush) 10 ml FLUSH Q12HR [facility] Last Admin: 12/06/17 08:09 Dose: 10 ml Discontinued Medications Albuterol/Ipratropium (Duoneb 3.0-0.5 Mg/3 Ml) 3 ml NEB ONETIME ONE Stop: 12/03/17 10:00 Last Admin: 12/03/17 10:04 Dose: 3 ml Albuterol/Ipratropium (Duoneb 3.0-0.5 Mg/3 Ml) 3 ml NEB Q4HRRT [facility] Last Admin: 12/04/17 12:30 Dose: 3 ml Aspirin (Aspirin) 81 mg PO QAM [facility] Last Admin: 12/04/17 13:24 Dose: Not Given Levofloxacin/Dextrose 500 mg/ (Premix) 100 mls @ 100 mls/hr IV Q24H [facility] Last Admin: 12/04/17 09:53 Dose: 100 mls/hr Piperacillin Sod/Tazobactam (Sod 3.375 gm/ Sodium Chloride) 100 mls @ 200 mls/ hr IV Q6H [facility] Last Admin: 12/03/17 12:06 Dose: Not Given Sodium Chloride (Normal Saline) 1,000 mls @ 125 mls/hr IV ASDIRECTED [facility] Last Admin: 12/04/17 06:36 Dose: 125 mls/hr Methylprednisolone Sodium Succinate (Solu-Medrol) 125 mg IVPUSH Q6H [facility] Last Admin: 12/04/17 08:03 Dose: 125 mg Non-Formulary Medication (Benztropine Mesylate [Benztropine Mesylate]) 0.5 mg PO BID [facility] Last Admin: 12/04/17 08:20 Dose: 0.5 mg - Exam Quality Assessment: DVT Prophylaxis General: Alert, Cooperative HEENT: Mucous Membr. Moist/[place] Neck: Trachea Midline, No JVD Lungs: Normal Respiratory Effort, Decreased Breath Sounds, Rhonchi Cardiovascular: Regular Rate, Regular Rhythm GI/Abdominal Exam: Soft, Non-Tender, No Distention (Male) Exam: Deferred Back Exam: Normal Inspection Extremities: Non-Tender, Pedal Edema (minimal) Skin: Warm, Dry, Intact, Ecchymosis Neurological: Other (pre-existing deficit) Psy/Mental Status: Alert, Normal Affect, Normal Mood - Problem List & Annotations (1) Left sided cerebral hemisphere cerebrovascular accident SNOMED Code(s): 280934302 Code(s): I63.9 - CEREBRAL INFARCTION, UNSPECIFIED Status: Chronic Priority: Medium Current Visit: Yes (2) Hypoxia SNOMED Code(s): 626454265 Code(s): R09.02 - HYPOXEMIA Status: Acute Priority: High Current Visit : Yes Annotation/Comment:: Secondary to pneumonia history of COPD which complicates condition (3) Pneumonia, aspiration SNOMED Code(s): 977088693 Code(s): J69.0 - PNEUMONITIS DUE TO INHALATION OF FOOD AND VOMIT Status: Acute Priority: High Current Visit: Yes Qualifiers: Aspiration pneumonia type: due to gastric secretions Laterality: bilateral Lung location: lower lobe of lung Qualified Code(s): J69.0 - Pneumonitis due to inhalation of food and vomit (4) Hemiparesis affecting right side as late effect of stroke SNOMED Code(s): 985095629 Code(s): I69.351 - HEMIPLGA FOLLOWING CEREBRAL INFRC AFF RIGHT [place] SIDE Status: Chronic Priority: Medium Current Visit: Yes - Problem List Review Problem List Initiated/Reviewed/Updated: Yes - My Orders Last 24 Hours: My Active Orders 12/07/17 05:11 CBC WITH AUTO DIFF [HEME] DAILY CMP [COMPREHENSIVE METABOLIC PN,CMP] [CHEM] DAILY CRP [C-REACTIVE PROTEIN] [CHEM] DAILY 12/07/17 08:00 Swallowing Function w Video [CR] Routine - Plan Plan:: 12/04/17 Mark Welch MD Feeling a little bit better. Still harsh cough. Aspiration pneumonia. Continue IV antibiotics and respiratory treatments. 12/05/17 Mark Welch MD Feels even better today. Less cough. Some right elbow pain and swelling but feels better with elbow sleeve on. 12/06/17 Mark Welch MD Continues slow clinical improvement. For video swallow in AM.
[2017-12-06] MEDS: Phenytoin 100 MG Cap.ER PO SCH (19:17)
[2017-12-06] MEDS: Pantoprazole 40 MG Vial IVPUSH SCH (19:17)
[2017-12-06] MEDS: Simvastatin 20 MG Tab PO SCH (19:17)
[2017-12-07] MEDS: Bisacodyl 5 MG Tab PO PRN (00:52)
[2017-12-07] MEDS: Piperacillin/Tazobactam 3.375 GM in Sodium Chloride 0.9% 100 ML IV SCH ×4 (01:13→19:51)
[2017-12-07] MEDS: Sodium Chloride 0.9% 10 ML Syringe FLUSH PRN ×4 (01:14→20:41)
[2017-12-07] MEDS: metroNIDAZOLE/Normal Saline 500 MG in Premix Bag 1 BAG IV SCH ×3 (03:35→19:51)
[2017-12-07] MEDS: Benztropine 1 MG Tab PO SCH ×2 (07:36→19:53)
[2017-12-07] MEDS: Albuterol/Ipratropium 3.0-0.5 MG/3 ML Neb Soln NEB SCH ×4 (07:37→19:52)
[2017-12-07] MEDS: Aspirin 81 MG Tab.EC PO SCH (07:38)
[2017-12-07] MEDS: Potassium Chloride 10 MEQ Tab.ER PO SCH ×2 (07:38→17:32)
[2017-12-07] MEDS: Enoxaparin 30 MG/0.3 ML Syringe SUBCUT SCH (07:39)
[2017-12-07] MEDS: Sodium Chloride 0.9% 10 ML Syringe FLUSH SCH ×2 (07:40→19:53)
[2017-12-07] MEDS: methylPREDNISolone Sodium Succinate 125 MG/2 ML SDV IVPUSH SCH ×2 (07:42→19:52)
[2017-12-07] MEDS: carBAMazepine 200 MG TAB.ER PO SCH ×2 (07:45→19:53)
[2017-12-07] MEDS: carBAMazepine 100 MG Cap.ER PO SCH ×2 (07:45→19:52)
[2017-12-07] MEDS: Cholecalciferol (Vitamin D3) 1,000 Unit Tab PO SCH (07:46)
[2017-12-07 07:49] LABS: CHLORIDE,CL 102 mmol/L (98-107); SODIUM,NA 137 mmol/L (136-145)
[2017-12-07] MEDS: Cyclobenzaprine 10 MG Tab PO SCH (12:23)
[2017-12-07] MEDS: Acetaminophen 500 MG Tab PO SCH (12:23)
[2017-12-07] MEDS ORDERED: Furosemide 40 MG/4 ML VIAL IVPUSH ONE ×2 (12:44→18:00)
[2017-12-07] MEDS ORDERED: Potassium Chloride 10 MEQ Tab.ER PO ONE (13:00)
--- NOTE | 2017-12-07 16:29 | PCM.PN ---
- General Info Date of Service: 12/07/17 Functional Status: Reports: Pain Controlled - Review of Systems General: Reports: No Symptoms HEENT: Reports: No Symptoms Pulmonary: Reports: No Symptoms Cardiovascular: Reports: No Symptoms Gastrointestinal: Reports: No Symptoms Genitourinary: Reports: No Symptoms Musculoskeletal: Reports: No Symptoms Skin: Reports: No Symptoms Neurological: Reports: Pre-Existing Deficit Psychiatric: Reports: No Symptoms - Patient Data Vitals - Most Recent: Last Vital Signs Temp 98.5 F 12/07/17 12:00 Pulse 94 12/07/17 12:00 Resp 19 12/07/17 07:59 BP 149/82 H 12/07/17 12:00 Pulse Ox 88 L 12/07/17 12:00 Weight - Most Recent: 162 lb 0.001 oz I&O - Last 24 Hours: Intake & Output 12/07/17 12/07/17 12/07/17 06:59 14:59 22:59 Intake Total 640 1200 Output Total 500 1650 100 Balance 140 -450 -100 Lab Results Last 24 Hours: Laboratory Results - last 24 hr 12/07/17 12/07/17 Range/Units 06:43 06:43 WBC 5.6 (4.0-10.2) K/uL RBC 4.07 L (4.33-5.41) M/uL Hgb 12.7 L (13.1-16.8) g/dL Hct 37.9 L (39.0-49.0) % MCV 93.1 (84.0-98.0) fL MCH 31.2 (28.2-33.3) pg MCHC 33.5 (31.7-36.0) g/dL RDW 13.8 (11.2-14.1) % Plt Count 168 (150-350) K/uL Neut % (Auto) 72.9 (45.0-80.0) % Lymph % (Auto) 13.2 (10.0-50.0) % [place] % (Auto) 13.5 (2.0-14.0) % Eos % (Auto) 0.2 (0.0-5.0) % Baso % (Auto) 0.2 (0.0-2.0) % Neut # (Auto) 4.09 (1.40-7.00) K/uL Lymph # (Auto) 0.74 (0.50-3.50) K/uL [place] # (Auto) 0.76 (0.00-1.00) K/uL Eos # (Auto) 0.01 (0.00-0.50) K/uL Baso # (Auto) 0.01 (0.00-0.20) K/uL Sodium 137 (136-145) mmol/L Potassium 3.5 (3.5-5.1) mmol/L Chloride 102 (98-107) mmol/L Carbon Dioxide 28.7 (21.0-32.0) mmol/L BUN 10 (7-18) mg/dL Creatinine 0.68 (0.51-1.17) mg/dL Est Cr Clr Drug Dosing 81.33 mL/min Estimated GFR (MDRD) > 60 mL/min Glucose 117 H (74-106) mg/dL Calcium 7.3 L (8.5-10.1) mg/dL Total Bilirubin 0.2 (0.2-1.0) mg/dL AST 35 (15-37) U/L ALT 33 (12-78) U/L Alkaline Phosphatase 45 L (46-116) IU/L C-Reactive Protein 0.9 (<=0.9) mg/dL Total Protein 5.9 L (6.4-8.2) g/dL Albumin 2.9 L (3.4-5.0) g/dL Pravin Results Last 24 Hours: Microbiology 12/04/17 14:20 MRSA (PCR) - Final Nasal, Unspecified Med Orders - Current: Current Medications Acetaminophen (Tylenol Extra Strength) 1,000 mg PO DAILY PRN PRN Reason: Pain Last Admin: 12/05/17 21:28 Dose: 1,000 mg Acetaminophen (Tylenol Extra Strength) 1,000 mg PO DAILY@1200 [facility] Last Admin: 12/07/17 12:23 Dose: 1,000 mg Albuterol (Proventil Neb Soln) 2.5 mg NEB Q2H PRN PRN Reason: Dyspnea Last Admin: 12/06/17 02:43 Dose: 2.5 mg Albuterol/Ipratropium (Duoneb 3.0-0.5 Mg/3 Ml) 3 ml NEB QIDRT [facility] Last Admin: 12/07/17 16:15 Dose: 3 ml Aspirin (Halfprin) 81 mg PO DAILY [facility] Last Admin: 12/07/17 07:38 Dose: 81 mg Benztropine Mesylate (Cogentin) 0.5 mg PO BID@ [facility] Last Admin: 12/07/17 07:36 Dose: 0.5 mg Bisacodyl (Dulcolax) 5 - 15 mg PO DAILY PRN PRN Reason: Constipation Last Admin: 12/07/17 00:52 Dose: 15 mg Calcium Carbonate/Glycine (Tums Extra Strength) 750 mg PO Q2HR PRN PRN Reason: Indigestion Carbamazepine (Tegretol Xr) 100 mg PO BID@ [facility] Last Admin: 12/07/17 07:45 Dose: 100 mg Carbamazepine (Tegretol Er) 200 mg PO BID@ [facility] Last Admin: 12/07/17 07:45 Dose: 200 mg Cholecalciferol (Vitamin D3) 2,000 units PO QAM [facility] Last Admin: 12/07/17 07:46 Dose: 2,000 units Cyclobenzaprine HCl (Flexeril) 10 mg PO DAILY@1200 [facility] Last Admin: 12/07/17 12:23 Dose: 10 mg Enoxaparin Sodium (Lovenox) 30 mg SUBCUT DAILY [facility] Last Admin: 12/07/17 07:39 Dose: 30 mg Furosemide (Lasix) 40 mg IVPUSH DAILY [facility] Furosemide (Lasix) 40 mg IVPUSH ONETIME ONE Stop: 12/07/17 18:01 Piperacillin Sod/Tazobactam (Sod 3.375 gm/ Sodium Chloride) 100 mls @ 200 mls/ hr IV Q6H [facility] Last Admin: 12/07/17 13:29 Dose: 200 mls/hr Metronidazole 500 mg/ Premix 100 mls @ 100 mls/hr IV Q8H [facility] Last Admin: 12/07/17 12:22 Dose: 100 mls/hr Methylprednisolone Sodium Succinate (Solu-Medrol) 40 mg IVPUSH Q12HR [facility] Last Admin: 12/07/17 07:42 Dose: 40 mg Pantoprazole Sodium (Protonix Iv) 40 mg IVPUSH BEDTIME [facility] Last Admin: 12/06/17 19:17 Dose: 40 mg Phenytoin Sodium (Phenytoin) 300 mg PO BEDTIME [facility] Last Admin: 12/06/17 19:17 Dose: 300 mg Potassium Chloride (Klor-Con 10) 20 meq PO BID [facility] Senna/Docusate Sodium (Senna Plus) 1 tab PO BID@0800,2000 [facility] Last Admin: 12/07/17 07:41 Dose: 1 tab Simvastatin (Zocor) 40 mg PO BEDTIME [facility] Last Admin: 12/06/17 19:17 Dose: 40 mg Sodium Chloride (Saline Flush) 10 ml FLUSH ASDIRECTED PRN PRN Reason: Keep Vein Open Last Admin: 12/07/17 03:35 Dose: 10 ml Sodium Chloride (Saline Flush) 10 ml FLUSH Q12HR [facility] Last Admin: 12/07/17 07:40 Dose: 10 ml Discontinued Medications Albuterol/Ipratropium (Duoneb 3.0-0.5 Mg/3 Ml) 3 ml NEB ONETIME ONE Stop: 12/03/17 10:00 Last Admin: 12/03/17 10:04 Dose: 3 ml Albuterol/Ipratropium (Duoneb 3.0-0.5 Mg/3 Ml) 3 ml NEB Q4HRRT [facility] Last Admin: 12/04/17 12:30 Dose: 3 ml Aspirin (Aspirin) 81 mg PO QAM [facility] Last Admin: 12/04/17 13:24 Dose: Not Given Furosemide (Lasix) 40 mg IVPUSH NOW ONE Stop: 12/07/17 12:45 Last Admin: 12/07/17 13:28 Dose: 40 mg Levofloxacin/Dextrose 500 mg/ (Premix) 100 mls @ 100 mls/hr IV Q24H [facility] Last Admin: 12/04/17 09:53 Dose: 100 mls/hr Piperacillin Sod/Tazobactam (Sod 3.375 gm/ Sodium Chloride) 100 mls @ 200 mls/ hr IV Q6H [facility] Last Admin: 12/03/17 12:06 Dose: Not Given Sodium Chloride (Normal Saline) 1,000 mls @ 125 mls/hr IV ASDIRECTED [facility] Last Admin: 12/04/17 06:36 Dose: 125 mls/hr Methylprednisolone Sodium Succinate (Solu-Medrol) 125 mg IVPUSH Q6H [facility] Last Admin: 12/04/17 08:03 Dose: 125 mg Non-Formulary Medication (Benztropine Mesylate [Benztropine Mesylate]) 0.5 mg PO BID [facility] Last Admin: 12/04/17 08:20 Dose: 0.5 mg Potassium Chloride (Klor-Con 10) 10 meq PO BID [facility] Last Admin: 12/07/17 07:38 Dose: 10 meq Potassium Chloride (Klor-Con 10) 20 meq PO ONETIME ONE Stop: 12/07/17 13:01 Last Admin: 12/07/17 13:29 Dose: 20 meq - Exam General: Alert, Cooperative, No Acute Distress HEENT: Mucous Membr. Moist/[place] Neck: Trachea Midline, No JVD Lungs: Normal Respiratory Effort, Decreased Breath Sounds, Rhonchi (decreasing) Cardiovascular: Regular Rate, Regular Rhythm GI/Abdominal Exam: Soft, Non-Tender, No Distention (Male) Exam: Deferred Back Exam: Normal Inspection Extremities: Non-Tender, Pedal Edema Skin: Warm, Dry, Intact Neurological: Other (pre-existing deficit right hemiparesis, expressive dysphasia) Psy/Mental Status: Alert, Normal Affect, Normal Mood, Agitated (at times) - Problem List & Annotations (1) Left sided cerebral hemisphere cerebrovascular accident SNOMED Code(s): 474815477 Code(s): I63.9 - CEREBRAL INFARCTION, UNSPECIFIED Status: Chronic Priority: Medium Current Visit: Yes (2) Hypoxia SNOMED Code(s): 082175226 Code(s): R09.02 - HYPOXEMIA Status: Acute Priority: High Current Visit : Yes Annotation/Comment:: Secondary to pneumonia history of COPD which complicates condition (3) Pneumonia, aspiration SNOMED Code(s): 823301194 Code(s): J69.0 - PNEUMONITIS DUE TO INHALATION OF FOOD AND VOMIT Status: Acute Priority: High Current Visit: Yes Qualifiers: Aspiration pneumonia type: due to gastric secretions Laterality: bilateral Lung location: lower lobe of lung Qualified Code(s): J69.0 - Pneumonitis due to inhalation of food and vomit (4) Hemiparesis affecting right side as late effect of stroke SNOMED Code(s): 272813691 Code(s): I69.351 - HEMIPLGA FOLLOWING CEREBRAL INFRC AFF RIGHT DOMINANT SIDE Status: Chronic Priority: Medium Current Visit: Yes (5) Dysphagia as late effect of cerebrovascular accident (CVA) SNOMED Code(s): 241064568 Code(s): I69.391 - DYSPHAGIA FOLLOWING CEREBRAL INFARCTION Status: Acute Priority: High Current Visit: Yes (6) Dysphagia causing pulmonary aspiration with swallowing SNOMED Code(s): 84066845 Code(s): R13.19 - OTHER DYSPHAGIA Status: Acute Priority: High Current Visit: Yes - Problem List Review Problem List Initiated/Reviewed/Updated: Yes - My Orders Last 24 Hours: My Active Orders 12/07/17 08:00 Swallowing Function w Video [CR] Routine 12/07/17 09:01 Chest 2V [CR] Routine 12/07/17 18:00 Furosemide [Lasix] 40 mg IVPUSH ONETIME ONE Potassium Chloride [Klor-Con 10] 20 meq PO BID 12/07/17 Dinner Mechanical Soft Diet [DIET] 12/08/17 08:00 Furosemide [Lasix] 40 mg IVPUSH DAILY - Plan Plan:: 12/04/17 Mark Welch MD Feeling a little bit better. Still harsh cough. Aspiration pneumonia. Continue IV antibiotics and respiratory treatments. 12/05/17 Mark Welch MD Feels even better today. Less cough. Some right elbow pain and swelling but feels better with elbow sleeve on. 12/06/17 Mark Welch MD Continues slow clinical improvement. For video swallow in AM. 12/07/17 Mark Welch MD Continues to feel better but CXR showing pleural effusion which is new. Also swallowing evaluation showing silent aspiration. He says he has never had this problem ever before. Needs continued inpatient stay for IV lasix, continued IV antibiotics, monitor kidney function, K+.
[2017-12-07] MEDS: Pantoprazole 40 MG Vial IVPUSH SCH (19:51)
[2017-12-07] MEDS: Phenytoin 100 MG Cap.ER PO SCH (19:52)
[2017-12-07] MEDS: Simvastatin 20 MG Tab PO SCH (19:52)
[2017-12-08] MEDS: Piperacillin/Tazobactam 3.375 GM in Sodium Chloride 0.9% 100 ML IV SCH ×3 (02:08→14:53)
[2017-12-08] MEDS: Sodium Chloride 0.9% 10 ML Syringe FLUSH PRN ×4 (02:08→14:53)
[2017-12-08] MEDS: metroNIDAZOLE/Normal Saline 500 MG in Premix Bag 1 BAG IV SCH ×2 (04:41→11:23)
[2017-12-08] MEDS ORDERED: Furosemide 40 MG/4 ML VIAL IVPUSH SCH (08:00)
[2017-12-08] MEDS: Benztropine 1 MG Tab PO SCH (08:27)
[2017-12-08] MEDS: Albuterol/Ipratropium 3.0-0.5 MG/3 ML Neb Soln NEB SCH ×3 (08:28→15:15)
[2017-12-08] MEDS: Aspirin 81 MG Tab.EC PO SCH (08:28)
[2017-12-08] MEDS: Potassium Chloride 10 MEQ Tab.ER PO SCH (08:29)
[2017-12-08] MEDS: Enoxaparin 30 MG/0.3 ML Syringe SUBCUT SCH (08:30)
[2017-12-08] MEDS: Sodium Chloride 0.9% 10 ML Syringe FLUSH SCH (08:30)
[2017-12-08] MEDS: methylPREDNISolone Sodium Succinate 125 MG/2 ML SDV IVPUSH SCH (08:31)
[2017-12-08] MEDS: Cholecalciferol (Vitamin D3) 1,000 Unit Tab PO SCH (08:36)
[2017-12-08] MEDS: carBAMazepine 200 MG TAB.ER PO SCH (08:36)
[2017-12-08] MEDS: carBAMazepine 100 MG Cap.ER PO SCH (08:37)
[2017-12-08] MEDS: Acetaminophen 500 MG Tab PO SCH (11:25)
[2017-12-08] MEDS: Cyclobenzaprine 10 MG Tab PO SCH (11:25)
--- NOTE | 2017-12-08 16:23 | PCM.PN ---
- General Info Date of Service: 12/08/17 Functional Status: Reports: Pain Controlled - Review of Systems General: Reports: No Symptoms HEENT: Reports: No Symptoms Pulmonary: Reports: No Symptoms Cardiovascular: Reports: No Symptoms Gastrointestinal: Reports: No Symptoms Genitourinary: Reports: No Symptoms Musculoskeletal: Reports: No Symptoms Skin: Reports: No Symptoms Neurological: Reports: Pre-Existing Deficit Psychiatric: Reports: No Symptoms - Patient Data Vitals - Most Recent: Last Vital Signs Temp 97.8 F 12/08/17 12:00 Pulse 104 H 12/08/17 12:00 Resp 17 12/08/17 12:00 BP 123/90 12/08/17 12:00 Pulse Ox 95 12/08/17 12:00 Weight - Most Recent: 162 lb 0.001 oz I&O - Last 24 Hours: Intake & Output 12/08/17 12/08/17 12/08/17 06:59 14:59 22:59 Intake Total 440 Output Total 300 1550 Balance -300 -1110 Med Orders - Current: Current Medications Acetaminophen (Tylenol Extra Strength) 1,000 mg PO DAILY PRN PRN Reason: Pain Last Admin: 12/05/17 21:28 Dose: 1,000 mg Acetaminophen (Tylenol Extra Strength) 1,000 mg PO DAILY@[facility] Last Admin: 12/08/17 11:25 Dose: 1,000 mg Albuterol (Proventil Neb Soln) 2.5 mg NEB Q2H PRN PRN Reason: Dyspnea Last Admin: 12/06/17 02:43 Dose: 2.5 mg Albuterol/Ipratropium (Duoneb 3.0-0.5 Mg/3 Ml) 3 ml NEB QIDRT [facility] Last Admin: 12/08/17 15:15 Dose: 3 ml Aspirin (Halfprin) 81 mg PO DAILY [facility] Last Admin: 12/08/17 08:28 Dose: 81 mg Benztropine Mesylate (Cogentin) 0.5 mg PO BID@0800,2000 [facility] Last Admin: 12/08/17 08:27 Dose: 0.5 mg Bisacodyl (Dulcolax) 5 - 15 mg PO DAILY PRN PRN Reason: Constipation Last Admin: 12/07/17 00:52 Dose: 15 mg Calcium Carbonate/Glycine (Tums Extra Strength) 750 mg PO Q2HR PRN PRN Reason: Indigestion Carbamazepine (Tegretol Xr) 100 mg PO BID@ [facility] Last Admin: 12/08/17 08:37 Dose: 100 mg Carbamazepine (Tegretol Er) 200 mg PO BID@ [facility] Last Admin: 12/08/17 08:36 Dose: 200 mg Cholecalciferol (Vitamin D3) 2,000 units PO QAM [facility] Last Admin: 12/08/17 08:36 Dose: 2,000 units Cyclobenzaprine HCl (Flexeril) 10 mg PO DAILY@1200 [facility] Last Admin: 12/08/17 11:25 Dose: 10 mg Enoxaparin Sodium (Lovenox) 30 mg SUBCUT DAILY [facility] Last Admin: 12/08/17 08:30 Dose: 30 mg Furosemide (Lasix) 40 mg IVPUSH DAILY [facility] Last Admin: 12/08/17 08:31 Dose: 40 mg Piperacillin Sod/Tazobactam (Sod 3.375 gm/ Sodium Chloride) 100 mls @ 200 mls/ hr IV Q6H [facility] Last Admin: 12/08/17 14:53 Dose: 200 mls/hr Metronidazole 500 mg/ Premix 100 mls @ 100 mls/hr IV Q8H [facility] Last Admin: 12/08/17 11:23 Dose: 100 mls/hr Methylprednisolone Sodium Succinate (Solu-Medrol) 40 mg IVPUSH Q12HR [facility] Last Admin: 12/08/17 08:31 Dose: 40 mg Pantoprazole Sodium (Protonix Iv) 40 mg IVPUSH BEDTIME [facility] Last Admin: 12/07/17 19:51 Dose: 40 mg Phenytoin Sodium (Phenytoin) 300 mg PO BEDTIME [facility] Last Admin: 12/07/17 19:52 Dose: 300 mg Potassium Chloride (Klor-Con 10) 20 meq PO BID [facility] Last Admin: 12/08/17 08:29 Dose: 20 meq Senna/Docusate Sodium (Senna Plus) 1 tab PO BID@ [facility] Last Admin: 12/08/17 08:31 Dose: 1 tab Simvastatin (Zocor) 40 mg PO BEDTIME [facility] Last Admin: 12/07/17 19:52 Dose: 40 mg Sodium Chloride (Saline Flush) 10 ml FLUSH ASDIRECTED PRN PRN Reason: Keep Vein Open Last Admin: 12/08/17 14:53 Dose: 10 ml Sodium Chloride (Saline Flush) 10 ml FLUSH Q12HR [facility] Last Admin: 12/08/17 08:30 Dose: 10 ml Discontinued Medications Albuterol/Ipratropium (Duoneb 3.0-0.5 Mg/3 Ml) 3 ml NEB ONETIME ONE Stop: 12/03/17 10:00 Last Admin: 12/03/17 10:04 Dose: 3 ml Albuterol/Ipratropium (Duoneb 3.0-0.5 Mg/3 Ml) 3 ml NEB Q4HRRT [facility] Last Admin: 12/04/17 12:30 Dose: 3 ml Aspirin (Aspirin) 81 mg PO QAM [facility] Last Admin: 12/04/17 13:24 Dose: Not Given Furosemide (Lasix) 40 mg IVPUSH NOW ONE Stop: 12/07/17 12:45 Last Admin: 12/07/17 13:28 Dose: 40 mg Furosemide (Lasix) 40 mg IVPUSH ONETIME ONE Stop: 12/07/17 18:01 Last Admin: 12/07/17 17:33 Dose: 40 mg Levofloxacin/Dextrose 500 mg/ (Premix) 100 mls @ 100 mls/hr IV Q24H [facility] Last Admin: 12/04/17 09:53 Dose: 100 mls/hr Piperacillin Sod/Tazobactam (Sod 3.375 gm/ Sodium Chloride) 100 mls @ 200 mls/ hr IV Q6H [facility] Last Admin: 12/03/17 12:06 Dose: Not Given Sodium Chloride (Normal Saline) 1,000 mls @ 125 mls/hr IV ASDIRECTED [facility] Last Admin: 12/04/17 06:36 Dose: 125 mls/hr Methylprednisolone Sodium Succinate (Solu-Medrol) 125 mg IVPUSH Q6H [facility] Last Admin: 12/04/17 08:03 Dose: 125 mg Non-Formulary Medication (Benztropine Mesylate [Benztropine Mesylate]) 0.5 mg PO BID [facility] Last Admin: 12/04/17 08:20 Dose: 0.5 mg Potassium Chloride (Klor-Con 10) 10 meq PO BID [facility] Last Admin: 12/07/17 07:38 Dose: 10 meq Potassium Chloride (Klor-Con 10) 20 meq PO ONETIME ONE Stop: 12/07/17 13:01 Last Admin: 12/07/17 13:29 Dose: 20 meq - Exam Quality Assessment: Supplemental Oxygen General: Alert, Cooperative, No Acute Distress HEENT: Mucous Membr. Moist/[place] Neck: Trachea Midline, No JVD Lungs: Normal Respiratory Effort, Decreased Breath Sounds, Rhonchi Cardiovascular: Regular Rate, Regular Rhythm GI/Abdominal Exam: Soft, Non-Tender, No Distention (Male) Exam: Deferred Back Exam: Normal Inspection Extremities: Non-Tender, Pedal Edema, Other (foot drop right) Skin: Warm, Dry, Intact, Ecchymosis (from IVs and blood draws) Neurological: Other (pre-existing deficit) Psy/Mental Status: Alert, Normal Affect, Normal Mood - Problem List & Annotations (1) Left sided cerebral hemisphere cerebrovascular accident SNOMED Code(s): 927293328 Code(s): I63.9 - CEREBRAL INFARCTION, UNSPECIFIED Status: Chronic Priority: Medium Current Visit: Yes (2) Hypoxia SNOMED Code(s): 142871500 Code(s): R09.02 - HYPOXEMIA Status: Acute Priority: High Current Visit : Yes Annotation/Comment:: Secondary to pneumonia history of COPD which complicates condition (3) Pneumonia, aspiration SNOMED Code(s): 722637040 Code(s): J69.0 - PNEUMONITIS DUE TO INHALATION OF FOOD AND VOMIT Status: Acute Priority: High Current Visit: Yes Qualifiers: Aspiration pneumonia type: due to gastric secretions Laterality: bilateral Lung location: lower lobe of lung Qualified Code(s): J69.0 - Pneumonitis due to inhalation of food and vomit (4) Hemiparesis affecting right side as late effect of stroke SNOMED Code(s): 047105726 Code(s): I69.351 - HEMIPLGA FOLLOWING CEREBRAL INFRC AFF RIGHT DOMINANT SIDE Status: Chronic Priority: Medium Current Visit: Yes (5) Dysphagia as late effect of cerebrovascular accident (CVA) SNOMED Code(s): 492493854 Code(s): I69.391 - DYSPHAGIA FOLLOWING CEREBRAL INFARCTION Status: Acute Priority: High Current Visit: Yes (6) Dysphagia causing pulmonary aspiration with swallowing SNOMED Code(s): 42178968 Code(s): R13.19 - OTHER DYSPHAGIA Status: Acute Priority: High Current Visit: Yes - Problem List Review Problem List Initiated/Reviewed/Updated: Yes - My Orders Last 24 Hours: My Active Orders 12/07/17 18:00 Potassium Chloride [Klor-Con 10] 20 meq PO BID 12/07/17 Dinner Mechanical Soft Diet [DIET] 12/08/17 08:00 Furosemide [Lasix] 40 mg IVPUSH DAILY 12/08/17 15:55 Discontinue Saline Lock [Peripheral IV Discontinue] [OM.PC] Routine 12/08/17 16:16 Ready for Discharge [RC] PER UNIT ROUTINE - Plan Plan:: 12/04/17 Mark Welch MD Feeling a little bit better. Still harsh cough. Aspiration pneumonia. Continue IV antibiotics and respiratory treatments. 12/05/17 Mark Welch MD Feels even better today. Less cough. Some right elbow pain and swelling but feels better with elbow sleeve on. 12/06/17 Mark Welch MD Continues slow clinical improvement. For video swallow in AM. 12/07/17 Mark Welch MD Continues to feel better but CXR showing pleural effusion which is new. Also swallowing evaluation showing silent aspiration. He says he has never had this problem ever before. Needs continued inpatient stay for IV lasix, continued IV antibiotics, monitor kidney function, K+. 12/08/17 Mark Welch MD Feels okay. O2 sats drop on room air but improve on 2 LPM per nasal cannula. Stable for discharge to [facility] skilled unit on oral antibiotics and oral prednisone. Will order PT-OT-PROPERTY COORDINATOR.
--- NOTE | 2017-12-08 16:25 | PCM.DCSUM1 ---
Discharge Summary - Discharge Data Discharge Date: 12/08/17 Discharge Disposition: DC/Tfer to SNF 03 Condition: Good - Discharge Diagnosis/Problem(s) (1) Left sided cerebral hemisphere cerebrovascular accident SNOMED Code(s): 192490169 ICD Code: I63.9 - CEREBRAL INFARCTION, UNSPECIFIED Status: Chronic Priority: Medium Current Visit: Yes (2) Hypoxia SNOMED Code(s): 435929938 ICD Code: R09.02 - HYPOXEMIA Status: Acute Priority: High Current Visit : Yes Problem Details: Secondary to pneumonia history of COPD which complicates condition (3) Pneumonia, aspiration SNOMED Code(s): 788647408 ICD Code: J69.0 - PNEUMONITIS DUE TO INHALATION OF FOOD AND VOMIT Status: Acute Priority: High Current Visit: Yes Qualifiers: Aspiration pneumonia type: due to gastric secretions Laterality: bilateral Lung location: lower lobe of lung Qualified Code(s): J69.0 - Pneumonitis due to inhalation of food and vomit (4) Hemiparesis affecting right side as late effect of stroke SNOMED Code(s): 013410541 ICD Code: I69.351 - HEMIPLGA FOLLOWING CEREBRAL INFRC AFF RIGHT DOMINANT SIDE Status: Chronic Priority: Medium Current Visit: Yes (5) Dysphagia as late effect of cerebrovascular accident (CVA) SNOMED Code(s): 100005693 ICD Code: I69.391 - DYSPHAGIA FOLLOWING CEREBRAL INFARCTION Status: Acute Priority: High Current Visit: Yes (6) Dysphagia causing pulmonary aspiration with swallowing SNOMED Code(s): 31959463 ICD Code: R13.19 - OTHER DYSPHAGIA Status: Acute Priority: High Current Visit: Yes - Patient Summary/Data Consults: Consultations 12/04/17 12:04 PT Evaluation and Treatment [CONS] Routine 12/04/17 12:05 Consult to Speech Language Pathology [PHLEBOTOMY LAB ASSISTANT Evaluation and Treatment] [CONS] Routine OT Evaluation and Treatment [CONS] Routine - Patient Instructions Diet: Mechanical Soft (nectar thickened liquids, upright position & lean to the left side while eating) Activity: As Tolerated Driving: Do Not Drive Showering/Bathing: May Shower - Discharge Plan Prescriptions/Med Rec: Albuterol [IJD: Albuterol] 2.5 mg NEB Q2H PRN #30 nebule PRN Reason: Dyspnea Albuterol/Ipratropium [DuoNeb 3.0-0.5 MG/3 ML] 3 ml NEB QID #60 neb Amoxicillin/Clavulanate K [Augmentin 875-125 MG] 1 tab PO BID #10 tablet Furosemide [Lasix] 20 mg PO DAILY #30 tab Metronidazole [IJD: metroNIDAZOLE] 500 mg PO TID #15 tab Potassium Chloride 20 meq PO DAILY@1200 #60 cap.er Prednisone [IJD: predniSONE] 20 mg PO WITHBREAKFAST #5 tab Home Medications: Home Meds Acetaminophen [Tylenol Extra Strength] 1,000 mg PO DAILY PRN 08/28/14 [History] Acetaminophen [Tylenol Extra Strength] 1,000 mg PO DAILY@1200 08/28/14 [History] Benztropine Mesylate 0.5 mg PO BID@0800,199908/28/14 [History] Bisacodyl [Dulcolax] 5 - 15 mg PO DAILY PRN 08/28/14 [History] Cholecalciferol (Vitamin D3) [Vitamin D3] 2,000 units PO QAM 08/28/14 [History] Cyclobenzaprine [Flexeril] 10 mg PO DAILY@1200 08/28/14 [History] Phenytoin Sodium Extended 300 mg PO BEDTIME 08/28/14 [History] Simvastatin [Zocor] 40 mg PO BEDTIME 08/28/14 [History] carBAMazepine [TEGretol XR] 100 mg PO BID@0800,199908/28/14 [History] carBAMazepine [TEGretol XR] 200 mg PO BID@0800,199908/28/14 [History] Aspirin [Halfprin] 81 mg PO DAILY 12/03/17 [History] diphenhydrAMINE HCl/Zinc Acet [Benadryl Itch Stopping Crm] 28.3 gm TP Q4HR PRN 12/03/17 [History] Sennosides/Docusate Sodium [Senna S Tablet] 1 each PO BID@08,199912/04/17 [ History] Albuterol [IJD: Albuterol] 2.5 mg NEB Q2H PRN #30 nebule 12/08/17 [Rx] Albuterol/Ipratropium [DuoNeb 3.0-0.5 MG/3 ML] 3 ml NEB QID #60 neb 12/08/17 [Rx ] Amoxicillin/Clavulanate K [Augmentin 875-125 MG] 1 tab PO BID #10 tablet [Rx] Furosemide [Lasix] 20 mg PO DAILY #30 tab 12/08/17 [Rx] Metronidazole [IJD: metroNIDAZOLE] 500 mg PO TID #15 tab 12/08/17 [Rx] Potassium Chloride 20 meq PO DAILY@1200 #60 cap.er 12/08/17 [Rx] Prednisone [IJD: predniSONE] 20 mg PO WITHBREAKFAST #5 tab 12/08/17 [Rx] Forms: ED Department Discharge Referrals: Annamaria Moraes MD [Primary Care Provider] - - Discharge Summary/Plan Comment DC Time >30 min.: No - Patient Data Vitals - Most Recent: Last Vital Signs Temp 97.8 F 12/08/17 12:00 Pulse 104 H 12/08/17 12:00 Resp 17 12/08/17 12:00 BP 123/90 12/08/17 12:00 Pulse Ox 95 12/08/17 12:00 Weight - Most Recent: 162 lb 0.001 oz I&O - Last 24 hours: Intake & Output 12/08/17 12/08/17 12/08/17 06:59 14:59 22:59 Intake Total 440 Output Total 300 1550 Balance -300 -1110 Med Orders - Current: Current Medications Acetaminophen (Tylenol Extra Strength) 1,000 mg PO DAILY PRN PRN Reason: Pain Last Admin: 12/05/17 21:28 Dose: 1,000 mg Acetaminophen (Tylenol Extra Strength) 1,000 mg PO DAILY@1200 [facility] Last Admin: 12/08/17 11:25 Dose: 1,000 mg Albuterol (Proventil Neb Soln) 2.5 mg NEB Q2H PRN PRN Reason: Dyspnea Last Admin: 12/06/17 02:43 Dose: 2.5 mg Albuterol/Ipratropium (Duoneb 3.0-0.5 Mg/3 Ml) 3 ml NEB QIDRT [facility] Last Admin: 12/08/17 15:15 Dose: 3 ml Aspirin (Halfprin) 81 mg PO DAILY [facility] Last Admin: 12/08/17 08:28 Dose: 81 mg Benztropine Mesylate (Cogentin) 0.5 mg PO BID@0800,2000 [facility] Last Admin: 12/08/17 08:27 Dose: 0.5 mg Bisacodyl (Dulcolax) 5 - 15 mg PO DAILY PRN PRN Reason: Constipation Last Admin: 12/07/17 00:52 Dose: 15 mg Calcium Carbonate/Glycine (Tums Extra Strength) 750 mg PO Q2HR PRN PRN Reason: Indigestion Carbamazepine (Tegretol Xr) 100 mg PO BID@ [facility] Last Admin: 12/08/17 08:37 Dose: 100 mg Carbamazepine (Tegretol Er) 200 mg PO BID@ [facility] Last Admin: 12/08/17 08:36 Dose: 200 mg Cholecalciferol (Vitamin D3) 2,000 units PO QAM [facility] Last Admin: 12/08/17 08:36 Dose: 2,000 units Cyclobenzaprine HCl (Flexeril) 10 mg PO DAILY@1200 [facility] Last Admin: 12/08/17 11:25 Dose: 10 mg Enoxaparin Sodium (Lovenox) 30 mg SUBCUT DAILY [facility] Last Admin: 12/08/17 08:30 Dose: 30 mg Furosemide (Lasix) 40 mg IVPUSH DAILY [facility] Last Admin: 12/08/17 08:31 Dose: 40 mg Piperacillin Sod/Tazobactam (Sod 3.375 gm/ Sodium Chloride) 100 mls @ 200 mls/ hr IV Q6H [facility] Last Admin: 12/08/17 14:53 Dose: 200 mls/hr Metronidazole 500 mg/ Premix 100 mls @ 100 mls/hr IV Q8H [facility] Last Admin: 12/08/17 11:23 Dose: 100 mls/hr Methylprednisolone Sodium Succinate (Solu-Medrol) 40 mg IVPUSH Q12HR [facility] Last Admin: 12/08/17 08:31 Dose: 40 mg Pantoprazole Sodium (Protonix Iv) 40 mg IVPUSH BEDTIME [facility] Last Admin: 12/07/17 19:51 Dose: 40 mg Phenytoin Sodium (Phenytoin) 300 mg PO BEDTIME [facility] Last Admin: 12/07/17 19:52 Dose: 300 mg Potassium Chloride (Klor-Con 10) 20 meq PO BID [facility] Last Admin: 12/08/17 08:29 Dose: 20 meq Senna/Docusate Sodium (Senna Plus) 1 tab PO BID@ [facility] Last Admin: 12/08/17 08:31 Dose: 1 tab Simvastatin (Zocor) 40 mg PO BEDTIME [facility] Last Admin: 12/07/17 19:52 Dose: 40 mg Sodium Chloride (Saline Flush) 10 ml FLUSH ASDIRECTED PRN PRN Reason: Keep Vein Open Last Admin: 12/08/17 14:53 Dose: 10 ml Sodium Chloride (Saline Flush) 10 ml FLUSH Q12HR [facility] Last Admin: 12/08/17 08:30 Dose: 10 ml Discontinued Medications Albuterol/Ipratropium (Duoneb 3.0-0.5 Mg/3 Ml) 3 ml NEB ONETIME ONE Stop: 12/03/17 10:00 Last Admin: 12/03/17 10:04 Dose: 3 ml Albuterol/Ipratropium (Duoneb 3.0-0.5 Mg/3 Ml) 3 ml NEB Q4HRRT [facility] Last Admin: 12/04/17 12:30 Dose: 3 ml Aspirin (Aspirin) 81 mg PO QAM [facility] Last Admin: 12/04/17 13:24 Dose: Not Given Furosemide (Lasix) 40 mg IVPUSH NOW ONE Stop: 12/07/17 12:45 Last Admin: 12/07/17 13:28 Dose: 40 mg Furosemide (Lasix) 40 mg IVPUSH ONETIME ONE Stop: 12/07/17 18:01 Last Admin: 12/07/17 17:33 Dose: 40 mg Levofloxacin/Dextrose 500 mg/ (Premix) 100 mls @ 100 mls/hr IV Q24H [facility] Last Admin: 12/04/17 09:53 Dose: 100 mls/hr Piperacillin Sod/Tazobactam (Sod 3.375 gm/ Sodium Chloride) 100 mls @ 200 mls/ hr IV Q6H [facility] Last Admin: 12/03/17 12:06 Dose: Not Given Sodium Chloride (Normal Saline) 1,000 mls @ 125 mls/hr IV ASDIRECTED [facility] Last Admin: 12/04/17 06:36 Dose: 125 mls/hr Methylprednisolone Sodium Succinate (Solu-Medrol) 125 mg IVPUSH Q6H [facility] Last Admin: 12/04/17 08:03 Dose: 125 mg Non-Formulary Medication (Benztropine Mesylate [Benztropine Mesylate]) 0.5 mg PO BID [facility] Last Admin: 12/04/17 08:20 Dose: 0.5 mg Potassium Chloride (Klor-Con 10) 10 meq PO BID [facility] Last Admin: 12/07/17 07:38 Dose: 10 meq Potassium Chloride (Klor-Con 10) 20 meq PO ONETIME ONE Stop: 12/07/17 13:01 Last Admin: 12/07/17 13:29 Dose: 20 meq *Q Meaningful Use (DIS) - VTE *Q VTE Criteria *Q: - Stroke *Q Stroke Criteria *Q: - AMI *Q AMI Criteria *Q:
[2017-12-08 17:02] VITALS: BP 117/94
== END 2017-12-08 16:55 | DRG 178 ==
LOC: LL.ED 08:30 → LL.MS 10:36
PROVIDERS: ADMIT Family Medicine; ATTEND Family Medicine
DX: J69.0 Pneumonitis due to inhalation of food and vomit (principal); I69.351 Hemiplegia and hemiparesis following cerebral infarction affecting right dominant side; R09.02 Hypoxemia; I69.391 Dysphagia following cerebral infarction; R00.0 Tachycardia, unspecified; Z79.82 Long term (current) use of aspirin; Z79.899 Other long term (current) drug therapy; Z87.891 Personal history of nicotine dependence
CPT/HCPCS: 36000; 36415; 71046; 74019; 74230; 80048; 80053; 80156; 80185; 82803; 83605; 83880; 84484; 85025; 85379; 86140; 87040; 87077; 87186; 87641; 87804; 92526-GN; 92610-GN; 92611-GN; 93005; 94640; 97162-GP; 97165-GO; 97530-GP; 97535-GO; 99285; A9270-GY; C9113; J1650; J1940; J1956; J2543; J2930; J7030; J7050; J7620-GY

== ENCOUNTER 2019-04-11 15:40 | Emergency (ER) | payer MEDICARE, BC ==
[2019-04-11] MEDS ORDERED: Sodium Chloride 0.9% 250 ML IV ONE (16:30)
[2019-04-11 16:47] LABS: CHLORIDE,CL 101 mmol/L (98-107); SODIUM,NA 138 mmol/L (136-145)
[2019-04-11 17:41] VITALS: BP 130/74
[2019-04-11] MEDS ORDERED: Azithromycin 250 MG Tab PO ONE (17:44)
--- NOTE | 2019-04-11 17:44 | EDM.PDOC ---
ED HPI GENERAL MEDICAL PROBLEM - General Chief Complaint: General Stated Complaint: heat exhaustion Time Seen by Provider: 04/11/19 15:45 Source of Information: Reports: Other ([facility]) History Limitations: Reports: Other (dementia, hx stroke affecting speech) - History of Present Illness INITIAL COMMENTS - FREE TEXT/NARRATIVE: Patient brought to ER by [facility] after they noted that he was standing outside still, and was unresponsive to them. He had been sitting outside under a tree in near 90 degree heat for around an hour before this per report. Staff felt that patient's pupils appeared a bit larger than usual. Temp of 102 noted. When he was more interactive, they felt that he was agitated. No other reported changes. Sent to ER for evaluation. By time he arrived, patient verbal and interactive with staff. Reports to staff that he feels fine and does not know why he was sent to the ER. Reportedly recently treated for COPD exacerbation. Patient does not recall this however and denies having COPD/neb treatments when asked. - Related Data Allergies Allergy/AdvReac Type Severity Reaction Status Date / Time No Known Allergies Allergy Verified 09/06/17 14:15 Home Meds: Home Meds Acetaminophen [Tylenol Extra Strength] 1,000 mg PO DAILY PRN 08/28/14 [History] Acetaminophen [Tylenol Extra Strength] 1,000 mg PO DAILY@1200 08/28/14 [History] Benztropine Mesylate 0.5 mg PO BID@08,199908/28/14 [History] Bisacodyl [Dulcolax] 5 - 15 mg PO DAILY PRN 08/28/14 [History] Cholecalciferol (Vitamin D3) [Vitamin D3] 2,000 units PO QAM 08/28/14 [History] Cyclobenzaprine [Flexeril] 10 mg PO DAILY@1200 08/28/14 [History] Phenytoin Sodium Extended 300 mg PO BEDTIME 08/28/14 [History] Simvastatin [Zocor] 40 mg PO BEDTIME 08/28/14 [History] carBAMazepine [TEGretol XR] 100 mg PO BID@08,199908/28/14 [History] carBAMazepine [TEGretol XR] 200 mg PO BID@08,199908/28/14 [History] Aspirin [Halfprin] 81 mg PO DAILY 12/03/17 [History] diphenhydrAMINE HCl/Zinc Acet [Benadryl Itch Stopping Crm] 28.3 gm TP Q4HR PRN 12/03/17 [History] Sennosides/Docusate Sodium [Senna-S Tablet] 1 each PO BID@0800,2000 12/04/17 [ History] Albuterol [IJD: Albuterol] 2.5 mg NEB Q2H PRN #30 nebule 12/08/17 [Rx] Albuterol/Ipratropium [DuoNeb 3.0-0.5 MG/3 ML] 3 ml NEB QID #60 neb 12/08/17 [Rx ] Amoxicillin/Clavulanate K [Augmentin 875-125 MG] 1 tab PO BID #10 tablet [Rx] Furosemide [Lasix] 20 mg PO DAILY #30 tab 12/08/17 [Rx] Metronidazole [IJD: metroNIDAZOLE] 500 mg PO TID #15 tab 12/08/17 [Rx] Potassium Chloride 20 meq PO DAILY@1200 #60 cap.er 12/08/17 [Rx] Prednisone [IJD: predniSONE] 20 mg PO WITHBREAKFAST #5 tab 12/08/17 [Rx] Azithromycin [Zithromax] 250 mg PO DAILY #4 tab 04/11/19 [Rx] Past Medical History HEENT History: Reports: Cataract, Other (See Below) Other HEENT History: Optic Atrophy Cardiovascular History: Reports: High Cholesterol Respiratory History: Reports: COPD Gastrointestinal History: Reports: Chronic Constipation, GERD Genitourinary History: Reports: BPH, Other (See Below) Other Genitourinary History: chronic prostatitis Musculoskeletal History: Reports: Arthritis, Other (See Below) Other Musculoskeletal History: 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 Wears brace to right lower extremity. Able to pivot transfer with assist of 1 and use of a cane Neurological History: Reports: CVA (right hemiplegia), Seizure Psychiatric History: Reports: Dementia, Depression, Psychosis, Other (See Below) Other Psychiatric History: Hx. of alcohol abuse Endocrine/Metabolic History: Reports: Osteoporosis, Vitamin D Deficiency Dermatologic History: Reports: Other (See Below) Other Dermatologic History: Benign Lipomatous of skin Social & Family History - Tobacco Use Smoking Status *Q: Current Every Day Smoker Second Hand Smoke Education Provided: Patient Refused - Caffeine Use Caffeine Use: Reports: Soda - Alcohol Use Alcohol Use History: No - Recreational Drug Use Recreational Drug Use: No Drug Use in Last 12 Months: No ED ROS GENERAL - Review of Systems Review Of Systems: ROS reveals no pertinent complaints other than HPI. (Patient denies having any problems at this time, is also unreliable for accurate ROS.) ED EXAM, GENERAL - Physical Exam Exam: See Below Exam Limited By: No Limitations General Appearance: Alert, WD/WN, No Apparent Distress Eye Exam: Bilateral Eye: EOMI, PERRL Ears: Normal External Exam Nose: No: Nasal Deformity, Nasal Swelling, Nasal Drainage Throat/Mouth: Normal Lips, Normal Voice, No Airway Compromise Head: Atraumatic, Normocephalic Neck: Supple, Non-Tender Respiratory/Chest: No Respiratory Distress, Lungs Clear, Normal Breath Sounds, No Accessory Muscle Use Cardiovascular: Normal Peripheral Pulses, No Murmur, Tachycardia Peripheral Pulses: 2+: Radial (L), Radial (R) GI/Abdominal: Normal Bowel Sounds, Soft, Non-Tender, No Distention (Male) Exam: Deferred Rectal (Males) Exam: Deferred Back Exam: No: CVA Tenderness (L), CVA Tenderness (R), Muscle Spasm, Paraspinal Tenderness, Vertebral Tenderness Neurological: Alert, No Motor/Sensory Deficits (is at usual baseline per staff familiar with him, chronic right sided weakness due to stroke) Psychiatric: Normal Affect, Normal Mood Skin Exam: Warm, Dry, Intact, Normal Color EKG INTERPRETATION EKG Date: 04/11/19 Time: 15:54 Rhythm: Other (sinus) Rate (Beats/Min): 102 Suches: Normal P-Wave: Present QRS: Normal ST-T: Other (No acute ST changes suggestive of ischemia at this time) QT: Normal Comparison: No Change Course - Vital Signs Last Recorded V/S: Last Vital Signs Temp 37.0 C 04/11/19 15:40 Pulse 94 04/11/19 16:49 Resp 17 04/11/19 16:49 BP 130/74 04/11/19 16:49 Pulse Ox 92 L 04/11/19 16:49 - Orders/Labs/Meds Orders: Active Orders 24 hr Category Date Time Status EKG Documentation Completion [RC] ASDIRECTED Care 04/11/19 15:47 Ordered Chest 2V [CR] Stat Exams 04/11/19 16:28 Ordered UA W/MICROSCOPIC [URIN] Stat Lab 04/11/19 15:47 Ordered Labs: Laboratory Tests 04/11/19 04/11/19 04/11/19 Range/Units 16:00 16:00 16:00 WBC 9.9 (4.0-10.2) K/uL RBC 4.72 (4.33-5.41) M/uL Hgb 15.0 (13.1-16.8) g/dL Hct 44.6 (39.0-49.0) % MCV 94.5 (84.0-98.0) fL MCH 31.8 (28.2-33.3) pg MCHC 33.6 (31.7-36.0) g/dL RDW 13.7 (11.2-14.1) % Plt Count 190 (150-350) K/uL Neut % (Auto) 79.8 (45.0-80.0) % Lymph % (Auto) 8.4 L (10.0-50.0) % [place] % (Auto) 10.8 (2.0-14.0) % Eos % (Auto) 0.8 (0.0-5.0) % Baso % (Auto) 0.2 (0.0-2.0) % Neut # (Auto) 7.87 H (1.40-7.00) K/uL Lymph # (Auto) 0.83 (0.50-3.50) K/uL [place] # (Auto) 1.06 H (0.00-1.00) K/uL Eos # (Auto) 0.08 (0.00-0.50) K/uL Baso # (Auto) 0.02 (0.00-0.20) K/uL Sodium 138 (136-145) mmol/L Potassium 4.6 (3.5-5.1) mmol/L Chloride 101 (98-107) mmol/L Carbon Dioxide 29.4 (21.0-32.0) mmol/L BUN 16 (7-18) mg/dL Creatinine 0.93 (0.51-1.17) mg/dL Est Cr Clr Drug Dosing TNP Estimated GFR (MDRD) > 60 mL/min Glucose 114 H (74-106) mg/dL Calcium 8.3 L (8.5-10.1) mg/dL Total Bilirubin 0.3 (0.2-1.0) mg/dL AST 16 (15-37) U/L ALT 24 (12-78) U/L Alkaline Phosphatase 55 (46-116) IU/L Troponin I 0.000 (0.000-0.056) ng/mL NT-Pro-B Natriuret Pep 134 H (0-125) pg/mL Total Protein 6.3 L (6.4-8.2) g/dL Albumin 3.2 L (3.4-5.0) g/dL Meds: Medications Discontinued Medications Generic Name Dose Route Start Last Admin Trade Name Freq PRN Reason Stop Dose Admin Azithromycin 500 mg 04/11/19 17:44 Zithromax PO 04/11/19 17:45 ONETIME ONE Sodium Chloride 250 mls @ 250 mls/hr 04/11/19 16:30 04/11/19 16:52 Normal Saline IV 04/11/19 17:29 250 mls/hr ONETIME ONE Administration - Radiology Interpretation Free Text/Narrative:: Chest xray read by radiology: left basilar change that reflects either atelectasis or infiltrate, - Re-Assessments/Exams Free Text/Narrative Re-Assessment/Exam: Patient continued to say that he felt well throughout stay and wanted to go home. Noted to be tachycardic. O2 sats ran between 85% and 95%. History of COPD with reported recent exacerbation. WBC normal. No cough noted. O2 sats may be where patient normally runs, however given the brief elevation in temp and potential for infiltrate in left lower lung will start patient on Zithromax. PRN O2 at [facility] also ordered. Given the heat outside today and patient's exposure , cannot rule out heat-related illness that led to initial complaint. Temp normal in ER. Tachycardia improved throughout stay. Patient also received small bolus of NS. He will be discharged back to the [facility] at this time, with follow up as needed. Departure - Departure Time of Disposition: 17:38 Disposition: DC/Tfer to [facility] 03 Condition: Good Clinical Impression: Episode of unresponsiveness, Hypoxemia COPD (chronic obstructive pulmonary disease) Qualifiers: COPD type: unspecified COPD Qualified Code(s): J44.9 - Chronic obstructive pulmonary disease, unspecified - Discharge Information *PRESCRIPTION DRUG MONITORING PROGRAM REVIEWED*: No *COPY OF PRESCRIPTION DRUG MONITORING REPORT IN PATIENT YESICA: No Prescriptions: Azithromycin [Zithromax] 250 mg PO DAILY #4 tab Referrals: Mark-Annamaria Welch MD [Primary Care Provider] - Forms: ED Department Discharge Additional Instructions: Will start patient on course of Zithromax to cover for potential of infection left lower lung. Uncertain if episode of unresponsiveness due to heat, infection , or seizure. Continue the neb treatments. PRN O2 via nasal cannula to keep O2 sats between 88 % and 95% if hypoxemia noted. Observe for any additional changes. Follow up as needed, - My Orders Last 24 Hours: My Active Orders 04/11/19 15:47 EKG Documentation Completion [RC] ASDIRECTED UA W/MICROSCOPIC [URIN] Stat 04/11/19 16:28 Chest 2V [CR] Stat - Assessment/Plan Last 24 Hours: My Active Orders 04/11/19 15:47 EKG Documentation Completion [RC] ASDIRECTED UA W/MICROSCOPIC [URIN] Stat 04/11/19 16:28 Chest 2V [CR] Stat
== END 2019-04-11 18:20 ==
LOC: LL.ED 15:40
DX: J44.9 Chronic obstructive pulmonary disease, unspecified (principal); R09.02 Hypoxemia; R40.4 Transient alteration of awareness; I69.351 Hemiplegia and hemiparesis following cerebral infarction affecting right dominant side; F17.200 Nicotine dependence, unspecified, uncomplicated; F03.90 Unspecified dementia, unspecified severity, without behavioral disturbance, psychotic disturbance, mood disturbance, and anxiety; Z79.82 Long term (current) use of aspirin; Z79.899 Other long term (current) drug therapy
CPT/HCPCS: 36415; 71046; 80053; 83880; 84484; 85025; 93005; 96360; 99284-25; A9270-GY; J7050

== ENCOUNTER 2019-09-23 13:00 | Outpatient (CLI) | payer MEDICARE, BC ==
[~2019-09-23 13:00] MED LIST: Sodium Chloride 0.9% 10 ML Syringe FLUSH SCH; Zoledronic Acid in Water 5 MG in Premix Bag 1 BAG IV ONE
[2019-09-23] MEDS ORDERED: Sodium Chloride 0.9% 10 ML Syringe FLUSH PRN (13:06)
[2019-09-23 14:01] VITALS: BP 121/75; PULSE 104
--- NOTE | 2019-09-24 22:38 | PCM.SN ---
- Free Text/Narrative Note: 09/23/19 Mark Welch MD He has a diagnosis of osteoporosis. He is medically stable for outpatient status and infusion.
== END 2019-09-23 13:57 | disposition home or self-care (01) ==
LOC: LL.ACU 13:00
PROVIDERS: ATTEND Family Medicine
DX: M81.0 Age-related osteoporosis without current pathological fracture (principal)
CPT/HCPCS: 96365; J3489

== ENCOUNTER 2020-01-12 14:34 | Emergency (ER) | payer MEDICARE, BC ==
[2020-01-12 14:53] VITALS: BP 127/68; PULSE 87
--- NOTE | 2020-01-12 15:21 | EDM.PDOC ---
ED HPI GENERAL MEDICAL PROBLEM - General Chief Complaint: Upper Extremity Injury/Pain Stated Complaint: right arm pain Time Seen by Provider: 01/12/20 14:45 Source of Information: Reports: Patient, Residential Records History Limitations: Reports: No Limitations - History of Present Illness INITIAL COMMENTS - FREE TEXT/NARRATIVE: Pt fell at [place] and has pain in right shoulder. No LOC No other specific complaints Onset: Today, Sudden Duration: Hour(s): Location: Reports: Upper Extremity, Right Quality: Reports: Throbbing Severity: Moderate Improves with: Reports: Immobilization Worsens with: Reports: Movement Context: Reports: Trauma right upper arm/shoulder Pain Score (Numeric/FACES): 5 - Related Data Allergies Allergy/AdvReac Type Severity Reaction Status Date / Time No Known Allergies Allergy Verified 09/06/17 14:15 Home Meds: Home Meds Acetaminophen [Tylenol Extra Strength] 1,000 mg PO DAILY PRN 08/28/14 [History] Acetaminophen [Tylenol Extra Strength] 1,000 mg PO DAILY@1200 08/28/14 [History] Benztropine Mesylate 0.5 mg PO BID@0800,199908/28/14 [History] Cholecalciferol (Vitamin D3) [Vitamin D3] 2,000 units PO QAM 08/28/14 [History] Cyclobenzaprine [Flexeril] 10 mg PO DAILY@1200 08/28/14 [History] Phenytoin Sodium Extended 300 mg PO BEDTIME 08/28/14 [History] Simvastatin [Zocor] 40 mg PO BEDTIME 08/28/14 [History] bisacodyL [Dulcolax] 5 - 15 mg PO DAILY PRN 08/28/14 [History] carBAMazepine [TEGretol XR] 100 mg PO BID@0800,199908/28/14 [History] carBAMazepine [TEGretol XR] 200 mg PO BID@799,199908/28/14 [History] Aspirin [Halfprin] 81 mg PO DAILY 12/03/17 [History] diphenhydrAMINE HCl/Zinc Acet [Benadryl Itch Stopping Crm] 28.3 gm TP Q4HR PRN 12/03/17 [History] Sennosides/Docusate Sodium [Senna-S Tablet] 1 each PO BID@08,199912/04/17 [ History] Albuterol [IJD: Albuterol] 2.5 mg NEB Q2H PRN #30 nebule 12/08/17 [Rx] Albuterol/Ipratropium [DuoNeb 3.0-0.5 MG/3 ML] 3 ml NEB QID #60 neb 12/08/17 [Rx ] Amoxicillin/Clavulanate K [Augmentin 875-125 MG] 1 tab PO BID #10 tablet [Rx] Furosemide [Lasix] 20 mg PO DAILY #30 tab 12/08/17 [Rx] Metronidazole [IJD: metroNIDAZOLE] 500 mg PO TID #15 tab 12/08/17 [Rx] Potassium Chloride 20 meq PO DAILY@1200 #60 cap.er 12/08/17 [Rx] Prednisone [IJD: predniSONE] 20 mg PO WITHBREAKFAST #5 tab 12/08/17 [Rx] Azithromycin [Zithromax] 250 mg PO DAILY #4 tab 04/11/19 [Rx] Past Medical History HEENT History: Reports: Cataract, Other (See Below) Other HEENT History: Optic Atrophy Cardiovascular History: Reports: High Cholesterol Respiratory History: Reports: COPD Gastrointestinal History: Reports: Chronic Constipation, GERD Genitourinary History: Reports: BPH, Other (See Below) Other Genitourinary History: chronic prostatitis Musculoskeletal History: Reports: Arthritis, Other (See Below) Other Musculoskeletal History: 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 Wears brace to right lower extremity. Able to pivot transfer with assist of 1 and use of a cane Neurological History: Reports: CVA (right hemiplegia), Seizure Psychiatric History: Reports: Dementia, Depression, Psychosis, Other (See Below) Other Psychiatric History: Hx. of alcohol abuse Endocrine/Metabolic History: Reports: Osteoporosis, Vitamin D Deficiency Dermatologic History: Reports: Other (See Below) Other Dermatologic History: Benign Lipomatous of skin Social & Family History - Caffeine Use Caffeine Use: Reports: Soda Review of Systems - Review of Systems Review Of Systems: See Below Respiratory: Reports: No Symptoms Cardiovascular: Reports: No Symptoms Musculoskeletal: Reports: Joint Pain ED EXAM, GENERAL - Physical Exam Exam: See Below Exam Limited By: No Limitations General Appearance: Alert, Moderate Distress Head: Atraumatic Neck: Non-Tender Respiratory/Chest: Lungs Clear Cardiovascular: Regular Rate, Rhythm GI/Abdominal: Non-Tender Extremities: Limited Range of Motion (Right shoulder tender with palpation) Course - Vital Signs Last Recorded V/S: Last Vital Signs Temp 98.5 F 01/12/20 14:41 Pulse 87 01/12/20 14:41 Resp 22 H 01/12/20 14:41 BP 127/68 01/12/20 14:41 Pulse Ox 87 L 01/12/20 14:41 - Orders/Labs/Meds Orders: Active Orders 24 hr Category Date Time Status Shoulder Comp Rt [CR] Stat Exams 01/12/20 14:53 Ordered - Re-Assessments/Exams Free Text/Narrative Re-Assessment/Exam: 01/12/20 15:16 Right distal clavicle fracture on xray Pt placed in a sling/immobilizer 01/12/20 15:21 Rx Tramadol 50 mg one pill every 6 hours for pain Departure - Departure Time of Disposition: 15:30 Disposition: DC/Tfer to [facility] 03 Clinical Impression: Closed fracture of clavicle Qualifiers: Encounter type: initial encounter Clavicle location: lateral end Fracture alignment: nondisplaced Laterality: right Qualified Code(s): S42.034A - Nondisplaced fracture of lateral end of right clavicle, initial encounter for closed fracture - Discharge Information *PRESCRIPTION DRUG MONITORING PROGRAM REVIEWED*: Not Applicable *COPY OF PRESCRIPTION DRUG MONITORING REPORT IN PATIENT YESICA: Not Applicable Instructions: Clavicle Fracture, [id number] Additional Instructions: Follow up with usual provider Sepsis Event Note - Evaluation Sepsis Screening Result: No Definite Risk - Focused Exam Vital Signs: Vital Signs Temp Pulse Resp BP Pulse Ox 01/12/20 14:41 98.5 F 87 22 H 127/68 87 L Date Exam was Performed: 01/12/20 Time Exam was Performed: 15:14 - My Orders Last 24 Hours: My Active Orders 01/12/20 14:53 Shoulder Comp Rt [CR] Stat - Assessment/Plan Last 24 Hours: My Active Orders 01/12/20 14:53 Shoulder Comp Rt [CR] Stat
== END 2020-01-12 16:30 ==
LOC: LL.ED 14:34
DX: S42.034A Nondisplaced fracture of lateral end of right clavicle, initial encounter for closed fracture (principal); J44.9 Chronic obstructive pulmonary disease, unspecified; E78.00 Pure hypercholesterolemia, unspecified; K21.9 Gastro-esophageal reflux disease without esophagitis; F03.90 Unspecified dementia, unspecified severity, without behavioral disturbance, psychotic disturbance, mood disturbance, and anxiety; F32.9 Major depressive disorder, single episode, unspecified; Z86.73 Personal history of transient ischemic attack (TIA), and cerebral infarction without residual deficits; Z79.899 Other long term (current) drug therapy; Z79.82 Long term (current) use of aspirin; X58.XXXA Exposure to other specified factors, initial encounter
CPT/HCPCS: 29105; 73020-RT; 99284; 99284-25

== ENCOUNTER 2021-03-06 16:41 | Emergency (ER) | payer MEDICARE, BC, MEDICAID ==
--- NOTE | 2021-03-06 16:50 | EDM.PDOC ---
ED HPI GENERAL MEDICAL PROBLEM - General Chief Complaint: Laceration Stated Complaint: fall Time Seen by Provider: 03/06/21 16:45 Source of Information: Reports: Patient, [facility] Records, Old Records ([facility] EMR. No paper hospital chart available.) History Limitations: Reports: Altered Mental Status (Patient is a poor historian secondary to his baseline alcoholic encephalopathy, etc.) - History of Present Illness INITIAL COMMENTS - FREE TEXT/NARRATIVE: The patient was brought to the emergency room via transport vehicle from [facility] in [place] for evaluation of a laceration over his right eye, which occurred at about 3:30 PM this afternoon. No history of loss of consciousness, change in mental status, seizure activity, neck/back pain, chest pain, anginal complaints, abdominal pain, recent fever, cough, wheezing, etc., although overall limited history obtained from the [facility]. He is an extremely poor historian secondary to his baseline organic brain syndrome/alcoholic encephalopathy. Onset: Today, Sudden, Unknown/Unsure Onset Date: 03/06/21 Onset Time: 15:00 Duration: Constant Location: Reports: Face. Denies: Head, Neck, Chest, Abdomen, Back, Pelvis, Upper Extremity, Left, Upper Extremity, Right, Lower Extremity, Left, Lower Extremity, Right, Radiates to Quality: Reports: Ache, Same as Previous Episode Severity: Mild Improves with: Reports: None Worsens with: Reports: None Context: Reports: Other (As above). Denies: Sick Contact, Trauma Associated Symptoms: Reports: Confusion (Stable chronic), Weakness (Stable right spastic hemiparesis). Denies: Chest Pain, Cough, Fever/Chills, Headaches, Shortness of Breath Treatments CORE SHAPER: Reports: Dressing(s) - Related Data Allergies Allergy/AdvReac Type Severity Reaction Status Date / Time No Known Allergies Allergy Verified 03/06/21 17:23 Home Meds: Home Meds Acetaminophen [Tylenol Extra Strength] 1,000 mg PO DAILY PRN 08/28/14 [History] Benztropine Mesylate 0.5 mg PO BID@0800,2000 08/28/14 [History] Cholecalciferol (Vitamin D3) [Vitamin D3] 2,000 units PO QAM 08/28/14 [History] Cyclobenzaprine [Flexeril] 10 mg PO DAILY@1200 08/28/14 [History] Phenytoin Sodium Extended 300 mg PO BEDTIME 08/28/14 [History] Simvastatin [Zocor] 40 mg PO BEDTIME 08/28/14 [History] bisacodyL [Dulcolax] 5 - 15 mg PO DAILY PRN 08/28/14 [History] carBAMazepine [TEGretol XR] 100 mg PO BID@0800,199908/28/14 [History] carBAMazepine [TEGretol XR] 200 mg PO BID@799,199908/28/14 [History] Aspirin [Halfprin] 81 mg PO DAILY 12/03/17 [History] diphenhydrAMINE HCl/Zinc Acet [Benadryl Itch Stopping Crm] 28.3 gm TP Q4HR PRN 12/03/17 [History] Sennosides/Docusate Sodium [Senna-S Tablet] 1 each PO BID@0800,199912/04/17 [History] Potassium Chloride 20 meq PO DAILY@1200 #60 cap.er 12/08/17 [Rx] Ipratropium/Albuterol Sulfate [Iprat-Albut 0.5-3(2.5) mg/3 ml] 1 ampule IH Q4HR PRN 01/12/20 [History] Ipratropium/Albuterol Sulfate [Iprat-Albut 0.5-3(2.5) mg/3 ml] 3 ml IH TID 01/12/20 [History] Zoledronic Acid in Water [Reclast] 5 mg IV ASDIRECTED 01/12/20 [History] predniSONE [Prednisone] 5 mg PO DAILY 01/12/20 [History] Albuterol Sulfate 1 puff INH Q2HR PRN 03/06/21 [History] Furosemide [Lasix] 40 mg PO DAILY 03/06/21 [History] polyethylene glycoL 3350 [MiraLAX] 1 pkt PO DAILY@12 03/06/21 [History] Past Medical History HEENT History: Reports: Cataract, Impaired Vision, Other (See Below) Other HEENT History: Patient was glasses. 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 Recurrent aspiration pneumonia. Previous right sixth rib fracture. Gastrointestinal History: Reports: Chronic Constipation, GERD Genitourinary History: Reports: BPH, Prostate Disorder, Other (See Below) Other Genitourinary History: Chronic prostatitis. Musculoskeletal History: Reports: Arthritis, Fracture, Osteoarthritis, Osteoporosis, Other (See Below) Other Musculoskeletal History: Distal clavicular fracture on 01/12/2020. Chronic right leg brace therapy secondary to hemiparesis. 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 Psychiatric History: Reports: Addiction, Anxiety, Dementia, Depression, Psychosis, Other (See Below) Other Psychiatric History: History of alcohol abuse. Organic brain syndrome/encephalopathy as above. Endocrine/Metabolic History: Reports: Osteopenia, Osteoporosis, Vitamin D Defi ciency Hematologic History: Reports: Other (See Below) Other Hematologic History: vitamin d deficiency Dermatologic History: Reports: Seborrheic Dermatitis, Other (See Below) Other Dermatologic History: Benign Lipomatous of skin/subcu of right leg, seborrheic keratosis - Past Imaging History Past Imaging History: Reports: Swallow Study (12/03/2017.) Social & Family History - Tobacco Use Tobacco Use Status *Q: Current Every Day Tobacco User - Caffeine Use Caffeine Use: Reports: Soda - Living Situation & Occupation Living situation: Reports: Extended Care Facility ([facility] in [facility]) Occupation: Disabled ED ROS GENERAL - Review of Systems Review Of Systems: Comprehensive ROS is negative, except as noted in HPI. ED EXAM, SKIN/RASH Exam: See Below Exam Limited By: Altered Mental Status General Appearance: Alert, No Apparent Distress Eye Exam: Bilateral Eye: Foreign Body, Normal Fundi, Normal Inspection (No vertigo or nystagmus), PERRL, Other (4.5 cm in length irregular laceration over the right superior eyebrow with moderate swelling but no crepitation, deformity, or sign of fracture. No periorbital ecchymosis.) Ears: Normal External Exam, Normal Canal, Hearing Grossly Normal, Normal TMs Nose: Normal Inspection, Normal Mucosa, No Blood Throat/Mouth: Normal Inspection, Normal Lips, Normal Gums, Normal Oropharynx, Normal Voice, No Airway Compromise, Dysphagia (By history). No: Normal Teeth ( Complete dentures uppers and lowers), Inflammation, Perioral Cyanosis Head: Normocephalic, Facial Swelling (Superior orbital region on the right side as above), Facial Tenderness (At laceration site only), Other (Laceration as above). No: Sinus Tenderness Neck: Supple, Non-Tender, Full Range of Motion, Carotid Bruit (Mild bilateral carotid bruits). No: Lymphadenopathy (L), Lymphadenopathy (R), Thyromegaly Respiratory/Chest: No Respiratory Distress, Lungs Clear, No Accessory Muscle Use, Chest Non-Tender, Rales (Mild bilateral basilar rales). No: Rhonchi, Wheezing, Pleural Rub, Retractions Cardiovascular: Normal Peripheral Pulses, Regular Rate, Rhythm, No Gallop, No JVD, No Murmur, No Rub. No: No Edema (Dependent edema as below), Gallop/S3, Gallop/S4, Friction Rub Peripheral Pulses: 2+: Radial (L), Radial (R) GI/Abdominal: Normal Bowel Sounds, Soft, Non-Tender, No Organomegaly, No Distention, No Abnormal Bruit, No Mass, Pelvis Stable. No: Guarding (Male) Exam: Deferred Rectal (Males) Exam: Deferred Back Exam: Normal Inspection, Full Range of Motion. No: CVA Tenderness (L), CVA Tenderness (R), Muscle Spasm Extremities: Normal Inspection, Normal Range of Motion, Non-Tender, No Pedal Edema, Normal Capillary Refill, Pedal Edema (+1 bilateral pedal/pretibial edema), Other (Right leg posterior brace) Neurological: Alert, Confused (Stable baseline organic brain syndrome by history), Other (Severe right-sided spastic hemiparesis) Psychiatric: Flat Affect Skin: Wound/Incision (Laceration as above), Other (Possible actinic keratosis on the forearms bilaterally) Location, Skin: Face (As above) Characteristics: Other (As above) Associated features: Tenderness (As above) Lymphatic: No Adenopathy ED SKIN PROCEDURES - Laceration/Wound Repair Right Forehead Appearance: Subcutaneous Distal NVT: Neuro & Vascular Intact, No Tendon Injury Anesthetic Type: Local Local Anesthesia - Lidocaine (Xylocaine): 1% Plain Local Anesthetic Volume: 5cc Skin Prep: Providone-Iodine (Betadine) Saline Irrigation (cc's): 0 Exploration/Debridement/Repair: Wound Explored, In a Bloodless Field, Explored to Base, No Foreign Material Found, Multiple Flaps Aligned Closed with: Sutures Lac/Wound length In cm: 4.5 Suture Size: 4-0 # of Sutures: 4 Suture Type: Nylon, Interrupted, Simple Drain Placement: No Sterile Dressing Applied: Nurse Tetanus Status Addressed: Yes Complications: No Course - Vital Signs Last Recorded V/S: Last Vital Signs Temp 37.3 C 03/06/21 16:53 Pulse 109 H 03/06/21 16:53 Resp 19 03/06/21 16:53 BP 109/71 03/06/21 16:53 Pulse Ox 92 L 03/06/21 16:53 Vital Signs - 24 hr 03/06/21 16:53 Temperature [ 37.3 C Oral] Pulse, 109 H Peripheral [ Pulse Oximetry] Respiratory 19 Rate Blood Pressure 109/71 [Left Upper Arm ] O2 Sat by Pulse 92 L Oximetry - Orders/Labs/Meds Orders: Active Orders 24 hr Category Date Time Status Facial Bones Less 3V [CR] Stat Exams 03/06/21 16:51 Taken Obtain Past Medical Record [OM.PC] Routine Oth 03/06/21 16:51 Active Labs: None Meds: Medications Discontinued Medications Generic Name Dose Route Start Last Admin Trade Name Naveed PRN Reason Stop Dose Admin Lidocaine HCl 5 ml 03/06/21 16:52 03/06/21 17:45 Lidocaine 1% 5 Ml Sdv INJECT 03/06/21 16:53 5 ml ONETIME ONE Administration Neomycin/Polymyxin/Bacitracin 1 each 03/06/21 18:12 03/06/21 18:00 Bacitracin/Neomycin/Polymyxin B Oint 0.9 Gm U/D Packet TOP 03/06/21 18:13 1 each ONETIME ONE Administration - Radiology Interpretation Free Text/Narrative:: None Departure - Departure Time of Disposition: 18:30 Disposition: [facility] Condition: Good Clinical Impression: Laceration, CVA, old, cognitive deficits Head contusion Qualifiers: Encounter type: initial encounter Contusion of head detail: periocular area Laterality: right Qualified Code(s): S00.11XA - Contusion of right eyelid and periocular area, initial encounter COPD (chronic obstructive pulmonary disease) Qualifiers: COPD type: unspecified COPD Qualified Code(s): J44.9 - Chronic obstructive pulmonary disease, unspecified - Discharge Information *PRESCRIPTION DRUG MONITORING PROGRAM REVIEWED*: Not Applicable *COPY OF PRESCRIPTION DRUG MONITORING REPORT IN PATIENT YESICA: Not Applicable Instructions: Head Injury, Adult, [id number], Laceration Care, Adult, [id number], Sutures, Dorota, or Adhesive Wound Closure, [id number] Referrals: Carlee Garcia PA [Primary Care Provider] - Forms: ED Department Discharge Additional Instructions: 1. Follow up with your regular provider in 10-14 days for suture removal as directed. Bring these discharge instructions with you to that visit. 2. Antibacterial soap wash/soak with subsequent antibacterial dressing such as Neosporin, etc. as directed 2 times per day until the wound or laceration site completely heals. Keep the area clean and dry with activity restrictions as discussed. Never use hydrogen peroxide for wound care. 3. Continue strict fall precautions 4. Head precautions as directed-see form. 5. Please remember that we are ALWAYS here for you and want to answer any questions you may have. Feel free to call the hospital any time and we call you back ENE. Sepsis Event Note (ED) - Focused Exam Vital Signs: Vital Signs Temp Pulse Resp BP Pulse Ox 03/06/21 16:53 37.3 C 109 H 19 109/71 92 L - Problem List & Annotations (1) Laceration SNOMED Code(s): 963313608 Code(s): XWW6630 - Status: Acute Priority: High Onset Date: 03/06/21 Annotation/Comment:: Excellent results with laceration repair as above. Wound care discussed. Continue fall precautions. TDAP apparently up-to-date (2) Head contusion SNOMED Code(s): 505626472 Code(s): S00.93XA - CONTUSION OF UNSPECIFIED PART OF HEAD, INITIAL ENCOUNTER Status: Chronic Priority: Medium Annotation/Comment:: No direct evidence of head concussion. Head precautions given [facility] staff. Qualifiers: Encounter type: initial encounter Contusion of head detail: periocular area Laterality: right Qualified Code(s): S00.11XA - Contusion of right eyelid and periocular area, initial encounter (3) COPD (chronic obstructive pulmonary disease) SNOMED Code(s): 87674854 Code(s): J44.9 - CHRONIC OBSTRUCTIVE PULMONARY DISEASE, UNSPECIFIED Status: Chronic Priority: Medium Annotation/Comment:: Stable by limited history. Qualifiers: COPD type: unspecified COPD Qualified Code(s): J44.9 - Chronic obstructive pulmonary disease, unspecified (4) CVA, old, cognitive deficits SNOMED Code(s): 313966213, 880503589, [id number], [id number] Code(s): I69.319 - UNSP SYMPTOMS AND SIGNS W COGN FNCTNS FOL CEREBRAL INFRC Status: Chronic Annotation/Comment:: History of left CVA with dysphagia, organic brain syndrome versus alcoholic encephalopathy, spastic right hemiparesis with no apparent change in neurological status. - Problem List Review Problem List Initiated/Reviewed/Updated: Yes - My Orders Last 24 Hours: My Active Orders 03/06/21 16:51 Facial Bones Less 3V [CR] Stat Obtain Past Medical Record [OM.PC] Routine - Assessment/Plan Last 24 Hours: My Active Orders 03/06/21 16:51 Facial Bones Less 3V [CR] Stat Obtain Past Medical Record [OM.PC] Routine Assessment:: As above. Plan: As above. Extensive precautions were given to the patient, who is in agreement with the treatment plan. See Patient Instructions for further treatment and plan.
[2021-03-06 16:55] VITALS: BP 109/71; PULSE 109
[2021-03-06] MEDS: Bacitracin/Neomycin/Polymyxin B Oint 0.9 GM U/D Packet TOP ONE (18:00)
== END 2021-03-06 18:30 ==
LOC: LL.ED 16:41
DX: S01.81XA Laceration without foreign body of other part of head, initial encounter (principal); I69.319 Unspecified symptoms and signs involving cognitive functions following cerebral infarction; J44.9 Chronic obstructive pulmonary disease, unspecified; E78.00 Pure hypercholesterolemia, unspecified; I11.0 Hypertensive heart disease with heart failure; I50.9 Heart failure, unspecified; M19.90 Unspecified osteoarthritis, unspecified site; R56.9 Unspecified convulsions; Z99.81 Dependence on supplemental oxygen; Z79.82 Long term (current) use of aspirin; Z79.899 Other long term (current) drug therapy; Z72.0 Tobacco use; X58.XXXA Exposure to other specified factors, initial encounter
CPT/HCPCS: 12013; 70140; 99284; 99284-25

== ENCOUNTER 2021-03-07 19:12 | Emergency (ER) | payer MEDICARE, BC, MEDICAID ==
[2021-03-07 19:46] VITALS: BP 115/64; PULSE 73
[2021-03-07 19:49] LABS: CHLORIDE,CL 104 mmol/L (98-107); SODIUM,NA 141 mmol/L (136-145)
--- NOTE | 2021-03-07 20:13 | EDM.PDOC ---
ED HPI GENERAL MEDICAL PROBLEM - General Chief Complaint: Head Injury Stated Complaint: vision change Time Seen by Provider: 03/07/21 19:20 Source of Information: Reports: Patient, Alf Records History Limitations: Reports: Other (Confusion) - History of Present Illness INITIAL COMMENTS - FREE TEXT/NARRATIVE: Pt sent from [facility] with visual changes Pt had been seen in ER last PM after fall and scalp laceration closed a that time NH states pt says he cant see the same and NH states pupils are different No N/V Pt also on Rocephin and Vanco for presumed pneumonia per [place] report Onset: Gradual Duration: Day(s):, Intermittent Location: Reports: Head Context: Reports: Trauma - Related Data Allergies Allergy/AdvReac Type Severity Reaction Status Date / Time No Known Allergies Allergy Verified 03/07/21 19:33 Home Meds: Home Meds Acetaminophen [Tylenol Extra Strength] 1,000 mg PO DAILY PRN 08/28/14 [History] Benztropine Mesylate 0.5 mg PO BID@799,199908/28/14 [History] Cholecalciferol (Vitamin D3) [Vitamin D3] 2,000 units PO QAM 08/28/14 [History] Cyclobenzaprine [Flexeril] 10 mg PO DAILY@1200 08/28/14 [History] Phenytoin Sodium Extended 300 mg PO BEDTIME 08/28/14 [History] Simvastatin [Zocor] 40 mg PO BEDTIME 08/28/14 [History] bisacodyL [Dulcolax] 5 - 15 mg PO DAILY PRN 08/28/14 [History] carBAMazepine [TEGretol XR] 100 mg PO BID@799,199908/28/14 [History] carBAMazepine [TEGretol XR] 200 mg PO BID@799,199908/28/14 [History] Aspirin [Halfprin] 81 mg PO DAILY 12/03/17 [History] diphenhydrAMINE HCl/Zinc Acet [Benadryl Itch Stopping Crm] 28.3 gm TP Q4HR PRN 12/03/17 [History] Sennosides/Docusate Sodium [Senna-S Tablet] 1 each PO BID@08,199912/04/17 [History] Potassium Chloride 20 meq PO DAILY@1200 #60 cap.er 12/08/17 [Rx] Ipratropium/Albuterol Sulfate [Iprat-Albut 0.5-3(2.5) mg/3 ml] 1 ampule IH Q4HR PRN 01/12/20 [History] Ipratropium/Albuterol Sulfate [Iprat-Albut 0.5-3(2.5) mg/3 ml] 3 ml IH TID 01/12/20 [History] Zoledronic Acid in Water [Reclast] 5 mg IV ASDIRECTED 01/12/20 [History] predniSONE [Prednisone] 5 mg PO DAILY 01/12/20 [History] Albuterol Sulfate 1 puff INH Q2HR PRN 03/06/21 [History] Furosemide [Lasix] 40 mg PO DAILY 03/06/21 [History] polyethylene glycoL 3350 [MiraLAX] 1 pkt PO DAILY@12 03/06/21 [History] Past Medical History HEENT History: Reports: Cataract, Impaired Vision, Other (See Below) Other HEENT History: Patient was glasses. 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 Recurrent aspiration pneumonia. Previous right sixth rib fracture. Gastrointestinal History: Reports: Chronic Constipation, GERD Genitourinary History: Reports: BPH, Prostate Disorder, Other (See Below) Other Genitourinary History: Chronic prostatitis. Musculoskeletal History: Reports: Arthritis, Fracture, Osteoarthritis, Osteoporosis, Other (See Below) Other Musculoskeletal History: Distal clavicular fracture on 01/12/2020. Chronic right leg brace therapy secondary to hemiparesis. 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 Psychiatric History: Reports: Addiction, Anxiety, Dementia, Depression, Psychosis, Other (See Below) Other Psychiatric History: History of alcohol abuse. Organic brain syndrome/encephalopathy as above. Endocrine/Metabolic History: Reports: Osteopenia, Osteoporosis, Vitamin D Deficiency Hematologic History: Reports: Other (See Below) Other Hematologic History: vitamin d deficiency Dermatologic History: Reports: Seborrheic Dermatitis, Other (See Below) Other Dermatologic History: Benign Lipomatous of skin/subcu of right leg, seborrheic keratosis - Past Imaging History Past Imaging History: Reports: Swallow Study (12/03/2017.) Social & Family History - Caffeine Use Caffeine Use: Reports: Coffee - Living Situation & Occupation Living situation: Reports: Extended Care Facility ([facility]) Occupation: Disabled ED ROS GENERAL - Review of Systems Review Of Systems: See Below Constitutional: Reports: Fever HEENT: Reports: Vision Change Respiratory: Reports: No Symptoms Cardiovascular: Reports: No Symptoms GI/Abdominal: Reports: No Symptoms Skin: Reports: Other (laceration) Neurological: Reports: Other (Confusion) ED EXAM, HEAD INJURY - Physical Exam Exam: See Below Exam Limited By: No Limitations General Appearance: No Apparent Distress Head: Scalp Swelling, Scalp Ecchymosis, Facial Ecchymosis, Facial Swelling, Other (Scalp laceration-repaired previously) Eyes: Bilateral Eye: EOMI, PERRL Ears: Normal TMs Nose: Normal Inspection Throat/Mouth: Normal Oropharynx Neck: Non-Tender Respiratory: Decreased Breath Sounds Cardiovascular: Regular Rate, Rhythm GI/Abdominal Exam: Soft, Non-Tender Neurologic: No Motor/Sensory Deficits Course - Vital Signs Last Recorded V/S: Last Vital Signs Temp 98.5 F 03/07/21 19:14 Pulse 73 03/07/21 19:45 Resp 16 03/07/21 19:45 BP 115/64 03/07/21 19:45 Pulse Ox 100 03/07/21 19:45 - Orders/Labs/Meds Orders: Active Orders 24 hr Category Date Time Status Head wo Cont [CT] Stat Exams 03/07/21 19:15 Taken Labs: Laboratory Tests 03/07/21 03/07/21 Range/Units 19:29 19:29 WBC 8.2 (4.0-10.2) K/uL RBC 4.53 (4.33-5.41) M/uL Hgb 14.5 (13.1-16.8) g/dL Hct 45.0 (39.0-49.0) % MCV 99.3 H (84.0-98.0) fL MCH 32.0 (28.2-33.3) pg MCHC 32.2 (31.7-36.0) g/dL RDW 13.5 (11.2-14.1) % Plt Count 162 (150-350) K/uL Neut % (Auto) 82.3 H (45.0-80.0) % Lymph % (Auto) 7.0 L (10.0-50.0) % Payne % (Auto) 9.4 (2.0-14.0) % Eos % (Auto) 1.2 (0.0-5.0) % Baso % (Auto) 0.1 (0.0-2.0) % Neut # (Auto) 6.70 (1.40-7.00) K/uL Lymph # (Auto) 0.57 (0.50-3.50) K/uL Payne # (Auto) 0.77 (0.00-1.00) K/uL Eos # (Auto) 0.10 (0.00-0.50) K/uL Baso # (Auto) 0.01 (0.00-0.20) K/uL Sodium 141 (136-145) mmol/L Potassium 4.4 (3.5-5.1) mmol/L Chloride 104 (98-107) mmol/L Carbon Dioxide 34.8 H (21.0-32.0) mmol/L BUN 27 H (7-18) mg/dL Creatinine 0.89 (0.51-1.17) mg/dL Est Cr Clr Drug Dosing TNP Estimated GFR (MDRD) > 60 mL/min Glucose 93 (70-99) mg/dL Calcium 8.1 L (8.5-10.1) mg/dL - Re-Assessments/Exams Free Text/Narrative Re-Assessment/Exam: 03/07/21 20:12 See lab-WNL CT per radiologist No acute findings Departure - Departure Time of Disposition: 20:15 Disposition: DC/Tfer to SNF 03 Clinical Impression: Laceration Head contusion Qualifiers: Encounter type: subsequent encounter Contusion of head detail: scalp Qualified Code(s): S00.03XD - Contusion of scalp, subsequent encounter Pneumonia Qualifiers: Aspiration pneumonia type: unspecified Laterality: unspecified laterality Lung location: unspecified part of lung - Discharge Information *PRESCRIPTION DRUG MONITORING PROGRAM REVIEWED*: Not Applicable *COPY OF PRESCRIPTION DRUG MONITORING REPORT IN PATIENT YESICA: Not Applicable Referrals: PCP,None [Primary Care Provider] - Additional Instructions: Follow up usual provider Sepsis Event Note (ED) - Evaluation Sepsis Screening Result: No Definite Risk - Focused Exam Vital Signs: Vital Signs Temp Pulse Resp BP Pulse Ox 03/07/21 19:45 73 16 115/64 100 03/07/21 19:14 98.5 F 18 123/79 95 - My Orders Last 24 Hours: My Active Orders 03/07/21 19:15 Head wo Cont [CT] Stat - Assessment/Plan Last 24 Hours: My Active Orders 03/07/21 19:15 Head wo Cont [CT] Stat
== END 2021-03-07 20:26 ==
LOC: LL.ED 19:12
DX: J69.0 Pneumonitis due to inhalation of food and vomit (principal); S01.01XD Laceration without foreign body of scalp, subsequent encounter; I11.0 Hypertensive heart disease with heart failure; I50.9 Heart failure, unspecified; J44.9 Chronic obstructive pulmonary disease, unspecified; R56.9 Unspecified convulsions; F03.90 Unspecified dementia, unspecified severity, without behavioral disturbance, psychotic disturbance, mood disturbance, and anxiety; E78.00 Pure hypercholesterolemia, unspecified; M19.90 Unspecified osteoarthritis, unspecified site; Z79.82 Long term (current) use of aspirin; Z79.899 Other long term (current) drug therapy; Z86.73 Personal history of transient ischemic attack (TIA), and cerebral infarction without residual deficits; W19.XXXD Unspecified fall, subsequent encounter
CPT/HCPCS: 36415; 70450; 80048; 85025; 99284; 99284-25

== ENCOUNTER 2021-04-05 17:13 | Inpatient (IN) | payer MEDICARE, BC, MEDICAID ==
--- NOTE | 2021-04-05 18:17 | EDM.PDOC ---
ED HPI GENERAL MEDICAL PROBLEM - General Chief Complaint: General Stated Complaint: lethargic, tachycardia Time Seen by Provider: 04/05/21 17:45 Source of Information: Reports: Other ([facility]) History Limitations: Reports: Other (Cognitive decline/increased confusion) - History of Present Illness INITIAL COMMENTS - FREE TEXT/NARRATIVE: Per [facility] patient today developed increased confusion,lethargy, weaker, tachy, also fever (102.8). Patient tells us he feels fine and when ROS performed denies any problems/acute changes. Nursing staff member familiar with patient says patient does not appear to be usual self. Patient can usually pivot/transfer with assistance of cane. Tonight need two to assist. No other information received from [facility] staff as far as acute complaints/changes. - Related Data Allergies Allergy/AdvReac Type Severity Reaction Status Date / Time No Known Allergies Allergy Verified 04/05/21 19:53 Home Meds: Home Meds Acetaminophen [Tylenol Extra Strength] 1,000 mg PO DAILY PRN 08/28/14 [History] Benztropine Mesylate 0.5 mg PO BID@0800,199908/28/14 [History] Cholecalciferol (Vitamin D3) [Vitamin D3] 2,000 units PO 0800 08/28/14 [History] Cyclobenzaprine [Flexeril] 10 mg PO DAILY@1200 08/28/14 [History] Phenytoin Sodium Extended 300 mg PO BEDTIME 08/28/14 [History] Simvastatin [Zocor] 40 mg PO BEDTIME 08/28/14 [History] bisacodyL [Dulcolax] 5 - 15 mg PO DAILY PRN 08/28/14 [History] carBAMazepine [TEGretol XR] 100 mg PO BID@08,199908/28/14 [History] carBAMazepine [TEGretol XR] 200 mg PO BID@799,199908/28/14 [History] Aspirin [Halfprin] 81 mg PO DAILY 12/03/17 [History] diphenhydrAMINE HCl/Zinc Acet [Benadryl Itch Stopping Crm] 28.3 gm TP Q4HR PRN 12/03/17 [History] Sennosides/Docusate Sodium [Senna-S Tablet] 1 each PO BID@08,199912/04/17 [History] Potassium Chloride 20 meq PO DAILY@1200 #60 cap.er 12/08/17 [Rx] Ipratropium/Albuterol Sulfate [Iprat-Albut 0.5-3(2.5) mg/3 ml] 1 ampule IH Q4HR PRN 01/12/20 [History] Ipratropium/Albuterol Sulfate [Iprat-Albut 0.5-3(2.5) mg/3 ml] 3 ml IH TID 01/12/20 [History] Zoledronic Acid in Water [Reclast] 5 mg IV ASDIRECTED 01/12/20 [History] predniSONE [Prednisone] 5 mg PO 0800 01/12/20 [History] Albuterol Sulfate 1 each INH Q2HR PRN 03/06/21 [History] Furosemide [Lasix] 40 mg PO 0800 03/06/21 [History] polyethylene glycoL 3350 [MiraLAX] 1 pkt PO DAILY@12 03/06/21 [History] Lactulose 10 gm PO Q48H 04/05/21 [History] Past Medical History HEENT History: Reports: Cataract, Impaired Vision, Other (See Below) Other HEENT History: Patient was glasses. 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 Recurrent aspiration pneumonia. Previous right sixth rib fracture. Gastrointestinal History: Reports: Chronic Constipation, GERD Genitourinary History: Reports: BPH, Prostate Disorder, Other (See Below) Other Genitourinary History: Chronic prostatitis. Musculoskeletal History: Reports: Arthritis, Fracture, Osteoarthritis, Osteoporosis, Other (See Below) Other Musculoskeletal History: Distal clavicular fracture on 01/12/2020. Chronic right leg brace therapy secondary to hemiparesis. 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 Psychiatric History: Reports: Addiction, Anxiety, Dementia, Depression, Psychosis, Other (See Below) Other Psychiatric History: History of alcohol abuse. Organic brain syndrome/encephalopathy as above. Endocrine/Metabolic History: Reports: Osteopenia, Osteoporosis, Vitamin D Defi ciency Hematologic History: Reports: Other (See Below) Other Hematologic History: vitamin d deficiency Dermatologic History: Reports: Seborrheic Dermatitis, Other (See Below) Other Dermatologic History: Benign Lipomatous of skin/subcu of right leg, seborrheic keratosis - Past Imaging History Past Imaging History: Reports: Swallow Study (12/03/2017.) Social & Family History - Caffeine Use Caffeine Use: Reports: Coffee - Living Situation & Occupation Living situation: Reports: Extended Care Facility ([facility] in [facility]) Occupation: Disabled ED ROS GENERAL - Review of Systems Review Of Systems: Unable To Obtain Reason Not Obtained: unable to obtain accurately from patient, refer to HPI. ED EXAM, GENERAL - Physical Exam Exam: See Below Exam Limited By: No Limitations General Appearance: Other (Patient is awake, answer questions. Denies any discomfort. No obvious distress. ) Eye Exam: Bilateral Eye: EOMI, PERRL Ears: Hearing Grossly Normal Nose: No: Nasal Deformity, Nasal Swelling, Nasal Drainage Throat/Mouth: Normal Lips, Normal Voice, No Airway Compromise Head: Atraumatic, Normocephalic Neck: Normal Inspection, Supple, Non-Tender, Full Range of Motion. No: Lymphadenopathy (L), Lymphadenopathy (R) Respiratory/Chest: Other (moderate inspiration, rate 24. No significant wheezes/rales/rhonchi noted on exam. ) Cardiovascular: Normal Peripheral Pulses, No Murmur, Tachycardia GI/Abdominal: Normal Bowel Sounds, Soft, Non-Tender, No Distention (Male) Exam: Deferred Rectal (Males) Exam: Deferred Back Exam: No: CVA Tenderness (L), CVA Tenderness (R), Muscle Spasm, Paraspinal Tenderness, Vertebral Tenderness Extremities: Non-Tender, No Pedal Edema, Normal Capillary Refill Neurological: Alert, Other (right sided weakness from previous CVA. Patient is not oriented. Pleasantly confused. ) Psychiatric: Normal Affect, Normal Mood Skin Exam: Warm, Dry, Other (pale, improved with O2 via NC) Course - Vital Signs Last Recorded V/S: Last Vital Signs Temp 37.1 C 04/05/21 19:24 Pulse 99 04/05/21 19:24 Resp 20 04/05/21 19:24 BP 91/75 04/05/21 19:24 Pulse Ox 94 L 04/05/21 19:24 - Orders/Labs/Meds Orders: Active Orders 24 hr Category Date Time Status Abdomen 1V Flat [CR] Stat Exams 04/05/21 17:48 Taken Chest 1V Frontal [CR] Stat Exams 04/05/21 17:23 Taken CULTURE BLOOD [BC] Stat Lab 04/05/21 17:50 Received CULTURE BLOOD [BC] Stat Lab 04/05/21 18:30 Received Sodium Chloride 0.9% [Saline Flush] Med 04/05/21 17:21 Active 10 ml FLUSH ASDIRECTED PRN Blood Culture x2 Reflex Set [OM.PC] Stat Oth 04/05/21 17:23 Ordered Saline Lock Insert [OM.PC] Routine Oth 04/05/21 17:21 Ordered Medication Orders Sodium Chloride (Sodium Chloride 0.9% 10 Ml Syringe) 10 ml FLUSH ASDIRECTED PRN PRN Reason: Keep Vein Open Last Admin: 04/05/21 19:20 Dose: 10 ml Documented by: MAGDIEL Labs: Laboratory Tests 04/05/21 04/05/21 04/05/21 Range/Units 17:50 17:50 17:50 WBC 11.3 H (4.0-10.2) K/uL RBC 4.76 (4.33-5.41) M/uL Hgb 15.4 (13.1-16.8) g/dL Hct 47.3 (39.0-49.0) % MCV 99.4 H (84.0-98.0) fL MCH 32.4 (28.2-33.3) pg MCHC 32.6 (31.7-36.0) g/dL RDW 14.0 (11.2-14.1) % Plt Count 178 (150-350) K/uL Neut % (Auto) 83.2 H (45.0-80.0) % Lymph % (Auto) 7.3 L (10.0-50.0) % Douglas % (Auto) 8.8 (2.0-14.0) % Eos % (Auto) 0.5 (0.0-5.0) % Baso % (Auto) 0.2 (0.0-2.0) % Neut # (Auto) 9.39 H (1.40-7.00) K/uL Lymph # (Auto) 0.82 (0.50-3.50) K/uL Douglas # (Auto) 0.99 (0.00-1.00) K/uL Eos # (Auto) 0.06 (0.00-0.50) K/uL Baso # (Auto) 0.02 (0.00-0.20) K/uL D-Dimer, Quantitative (0-400) ng/mL Sodium 144 (136-145) mmol/L Potassium 4.5 (3.5-5.1) mmol/L Chloride 106 (98-107) mmol/L Carbon Dioxide 27.7 (21.0-32.0) mmol/L BUN 27 H (7-18) mg/dL Creatinine 1.07 (0.51-1.17) mg/dL Est Cr Clr Drug Dosing TNP Estimated GFR (MDRD) > 60 mL/min Glucose 117 H (70-99) mg/dL Lactic Acid 0.9 (0.4-2.0) mmol/L Calcium 8.4 L (8.5-10.1) mg/dL Magnesium 2.3 (1.8-2.4) mg/dL Total Bilirubin 0.4 (0.2-1.0) mg/dL AST 14 L (15-37) U/L ALT 19 (12-78) U/L Alkaline Phosphatase 97 (46-116) IU/L Troponin I (0.000-0.056) ng/mL NT-Pro-B Natriuret Pep (0-125) pg/mL Total Protein 7.2 (6.4-8.2) g/dL Albumin 3.4 (3.4-5.0) g/dL Specimen Type Urine Color (YELLOW) Urine Appearance (CLEAR) Urine pH (5.0-9.0) Ur Specific Waller (1.005-1.030) Urine Protein (NEGATIVE) mg/dL Urine Glucose (UA) (NEGATIVE) mg/dL Urine Ketones (NEGATIVE) mg/dL Urine Occult Blood (NEGATIVE) Urine Nitrite (NEGATIVE) Urine Bilirubin (NEGATIVE) Urine Urobilinogen (0.2-1.0) E.U./dL Ur Leukocyte Esterase (NEGATIVE) U Hyaline Cast (Auto) Urine RBC /HPF Urine WBC /HPF Ur Epithelial Cells /LPF Amorphous Sediment (0/HPF) /HPF Urine Bacteria (NONE TO FEW) /HPF Urine Mucus (NEGATIVE) /LPF 04/05/21 04/05/21 04/05/21 Range/Units 17:50 17:50 17:50 WBC (4.0-10.2) K/uL RBC (4.33-5.41) M/uL Hgb (13.1-16.8) g/dL Hct (39.0-49.0) % MCV (84.0-98.0) fL MCH (28.2-33.3) pg MCHC (31.7-36.0) g/dL RDW (11.2-14.1) % Plt Count (150-350) K/uL Neut % (Auto) (45.0-80.0) % Lymph % (Auto) (10.0-50.0) % Douglas % (Auto) (2.0-14.0) % Eos % (Auto) (0.0-5.0) % Baso % (Auto) (0.0-2.0) % Neut # (Auto) (1.40-7.00) K/uL Lymph # (Auto) (0.50-3.50) K/uL Douglas # (Auto) (0.00-1.00) K/uL Eos # (Auto) (0.00-0.50) K/uL Baso # (Auto) (0.00-0.20) K/uL D-Dimer, Quantitative 317 (0-400) ng/mL Sodium (136-145) mmol/L Potassium (3.5-5.1) mmol/L Chloride (98-107) mmol/L Carbon Dioxide (21.0-32.0) mmol/L BUN (7-18) mg/dL Creatinine (0.51-1.17) mg/dL Est Cr Clr Drug Dosing Estimated GFR (MDRD) mL/min Glucose (70-99) mg/dL Lactic Acid (0.4-2.0) mmol/L Calcium (8.5-10.1) mg/dL Magnesium (1.8-2.4) mg/dL Total Bilirubin (0.2-1.0) mg/dL AST (15-37) U/L ALT (12-78) U/L Alkaline Phosphatase (46-116) IU/L Troponin I 0.000 (0.000-0.056) ng/mL NT-Pro-B Natriuret Pep 453 H (0-125) pg/mL Total Protein (6.4-8.2) g/dL Albumin (3.4-5.0) g/dL Specimen Type Urine Color (YELLOW) Urine Appearance (CLEAR) Urine pH (5.0-9.0) Ur Specific Waller (1.005-1.030) Urine Protein (NEGATIVE) mg/dL Urine Glucose (UA) (NEGATIVE) mg/dL Urine Ketones (NEGATIVE) mg/dL Urine Occult Blood (NEGATIVE) Urine Nitrite (NEGATIVE) Urine Bilirubin (NEGATIVE) Urine Urobilinogen (0.2-1.0) E.U./dL Ur Leukocyte Esterase (NEGATIVE) U Hyaline Cast (Auto) Urine RBC /HPF Urine WBC /HPF Ur Epithelial Cells /LPF Amorphous Sediment (0/HPF) /HPF Urine Bacteria (NONE TO FEW) /HPF Urine Mucus (NEGATIVE) /LPF 04/05/21 Range/Units 19:05 WBC (4.0-10.2) K/uL RBC (4.33-5.41) M/uL Hgb (13.1-16.8) g/dL Hct (39.0-49.0) % MCV (84.0-98.0) fL MCH (28.2-33.3) pg MCHC (31.7-36.0) g/dL RDW (11.2-14.1) % Plt Count (150-350) K/uL Neut % (Auto) (45.0-80.0) % Lymph % (Auto) (10.0-50.0) % Douglas % (Auto) (2.0-14.0) % Eos % (Auto) (0.0-5.0) % Baso % (Auto) (0.0-2.0) % Neut # (Auto) (1.40-7.00) K/uL Lymph # (Auto) (0.50-3.50) K/uL Douglas # (Auto) (0.00-1.00) K/uL Eos # (Auto) (0.00-0.50) K/uL Baso # (Auto) (0.00-0.20) K/uL D-Dimer, Quantitative (0-400) ng/mL Sodium (136-145) mmol/L Potassium (3.5-5.1) mmol/L Chloride (98-107) mmol/L Carbon Dioxide (21.0-32.0) mmol/L BUN (7-18) mg/dL Creatinine (0.51-1.17) mg/dL Est Cr Clr Drug Dosing Estimated GFR (MDRD) mL/min Glucose (70-99) mg/dL Lactic Acid (0.4-2.0) mmol/L Calcium (8.5-10.1) mg/dL Magnesium (1.8-2.4) mg/dL Total Bilirubin (0.2-1.0) mg/dL AST (15-37) U/L ALT (12-78) U/L Alkaline Phosphatase (46-116) IU/L Troponin I (0.000-0.056) ng/mL NT-Pro-B Natriuret Pep (0-125) pg/mL Total Protein (6.4-8.2) g/dL Albumin (3.4-5.0) g/dL Specimen Type Urinfol Urine Color Dark yellow H (YELLOW) Urine Appearance Slightly cloudy H (CLEAR) Urine pH 5.0 (5.0-9.0) Ur Specific Waller 1.025 (1.005-1.030) Urine Protein 30 H (NEGATIVE) mg/dL Urine Glucose (UA) Negative (NEGATIVE) mg/dL Urine Ketones Trace H (NEGATIVE) mg/dL Urine Occult Blood Negative (NEGATIVE) Urine Nitrite Negative (NEGATIVE) Urine Bilirubin Small H (NEGATIVE) Urine Urobilinogen 0.2 (0.2-1.0) E.U./dL Ur Leukocyte Esterase Negative (NEGATIVE) U Hyaline Cast (Auto) Few Urine RBC 0-5 /HPF Urine WBC 0-5 /HPF Ur Epithelial Cells Few /LPF Amorphous Sediment Few (0/HPF) /HPF Urine Bacteria Rare (NONE TO FEW) /HPF Urine Mucus Few H (NEGATIVE) /LPF Meds: Medications Generic Name Dose Route Start Last Admin Trade Name Freq PRN Reason Stop Dose Admin Sodium Chloride 10 ml 04/05/21 17:21 04/05/21 19:20 Sodium Chloride 0.9% 10 Ml Syringe FLUSH 10 ml ASDIRECTED PRN Administration Keep Vein Open Discontinued Medications Generic Name Dose Route Start Last Admin Trade Name Freq PRN Reason Stop Dose Admin Ampicillin Sodium/Sulbactam 100 mls @ 100 mls/hr 04/05/21 18:20 04/05/21 19:22 Sodium 3 gm/ Sodium Chloride IV 04/05/21 19:19 100 mls/hr ONETIME ONE Administration - Re-Assessments/Exams Free Text/Narrative Re-Assessment/Exam: 04/05/21 20:12 Chest xray poor quality due to patient unable to assist with good positioning and no attempt at good inspiration for the film. Cannot exclude left sided lower infiltrate vs atelectasis. Pending Radiology review. Mild elevation WBC. No UTI identified on UA. Lactic acid normal. Given patient's history and increased O2 requirement suspect good likelihood that he is developing another aspiration pneumonia. Unasyn given in ER. Call placed to [facility] in [place] and discussed patient with /AMY. They declined transfer tonight but will check on patient's status tomorrow and possibly consider transfer at that time if it looks like patient is not responding well to treatment plan. Patient admitted inpatient to our facility. Departure - Departure Time of Disposition: 20:00 Disposition: Admitted As Inpatient 68 Condition: Fair Clinical Impression: Fever Qualifiers: Fever type: unspecified Qualified Code(s): R50.9 - Fever, unspecified - Discharge Information *PRESCRIPTION DRUG MONITORING PROGRAM REVIEWED*: Not Applicable *COPY OF PRESCRIPTION DRUG MONITORING REPORT IN PATIENT YESICA: Not Applicable Referrals: Carlee Garcia PA [Primary Care Provider] - Forms: ED Department Discharge Sepsis Event Note (ED) - Evaluation Sepsis Screening Result: Possible Severe Sepsis Risk - Focused Exam Vital Signs: Vital Signs Temp Pulse Resp BP BP Pulse Ox 04/05/21 19:24 37.1 C 99 20 91/75 94 L 04/05/21 18:12 108 H 18 116/57 L 90 L 04/05/21 17:57 38.4 C H 109 H 20 118/65 88 L 04/05/21 17:22 38.3 C H 129 H 24 H 123/72 90 L - Problem List & Annotations (1) Fever SNOMED Code(s): 090956346 Code(s): R50.9 - FEVER, UNSPECIFIED Status: Acute Priority: High Current Visit: Yes Onset Date: 04/05/21 Annotation/Comment:: Fever/lethargy/weakness/increased confusion/tachy. Suspect developing aspiration pneumonia. Blood cultures pending. IV Unasyn initiated in ER. Qualifiers: Fever type: unspecified Qualified Code(s): R50.9 - Fever, unspecified (2) Hypoxemia SNOMED Code(s): 123616597 Code(s): R09.02 - HYPOXEMIA Status: Chronic Priority: Medium Current Visit: Yes Annotation/Comment:: Chronic. Patient has O2 via NC at [facility] but only will use it intermittently. Staff from [facility] note that he is frequently in high 80s when pulse oximetry checked. When on O2 usually has 2-3L flow. Need to have flow increased in ER to 4-5L to keep sats around low 90s. (3) Dysphagia causing pulmonary aspiration with swallowing SNOMED Code(s): 47099835, 07003549 Code(s): R13.19 - OTHER DYSPHAGIA Status: Chronic Priority: High Current Visit: Yes (4) COPD (chronic obstructive pulmonary disease) SNOMED Code(s): 05674112 Code(s): J44.9 - CHRONIC OBSTRUCTIVE PULMONARY DISEASE, UNSPECIFIED Status: Chronic Priority: Medium Current Visit: Yes Annotation/Comment:: No acute changes recently per [facility] Qualifiers: COPD type: unspecified COPD Qualified Code(s): J44.9 - Chronic obstructive pulmonary disease, unspecified (5) BPH (benign prostatic hyperplasia) SNOMED Code(s): 294831110 Code(s): N40.0 - BENIGN PROSTATIC HYPERPLASIA WITHOUT LOWER URINRY TRACT SYMP Status: Chronic Priority: Low Current Visit: No Annotation/Comment:: No acute changes per [facility] Qualifiers: Lower urinary tract symptom presence: unspecified whether lower urinary tract symptoms present Qualified Code(s): N40.0 - Benign prostatic hyperplasia without lower urinary tract symptoms (6) GERD (gastroesophageal reflux disease) SNOMED Code(s): 818923348 Code(s): K21.9 - GASTRO-ESOPHAGEAL REFLUX DISEASE WITHOUT ESOPHAGITIS Status: Chronic Priority: Low Current Visit: No Annotation/Comment:: No acute changes per [facility] Qualifiers: Esophagitis presence: esophagitis presence not specified Qualified Code(s): K21.9 - Gastro-esophageal reflux disease without esophagitis (7) Epilepsy SNOMED Code(s): 51103467 Code(s): G40.909 - EPILEPSY, UNSP, NOT INTRACTABLE, WITHOUT STATUS EPILEPTICUS Status: Chronic Priority: Low Current Visit: No Annotation/Comment:: No acute changes reported. Qualifiers: Epilepsy type: unspecified (8) Osteoporosis SNOMED Code(s): 13510420 Code(s): M81.0 - AGE-RELATED OSTEOPOROSIS W/O CURRENT PATHOLOGICAL FRACTURE Status: Chronic Priority: Low Current Visit: No Annotation/Comment:: No acute changes reported. Qualifiers: Osteoporosis type: unspecified (9) Alcoholic dementia SNOMED Code(s): 491969 Code(s): F10.27 - ALCOHOL DEPENDENCE WITH ALCOHOL-INDUCED PERSISTING DEMENTIA Status: Chronic Priority: Medium Current Visit: Yes Annotation/Comment:: increased confusion noted per [facility] staff today (10) Hyperlipemia SNOMED Code(s): 68952680 Code(s): E78.5 - HYPERLIPIDEMIA, UNSPECIFIED Status: Chronic Priority: Low Current Visit: No Annotation/Comment:: Under therapy Qualifiers: Hyperlipidemia type: unspecified Qualified Code(s): E78.5 - Hyperlipidemia, unspecified (11) Depression SNOMED Code(s): 02344300 Code(s): F32.9 - MAJOR DEPRESSIVE DISORDER, SINGLE EPISODE, UNSPECIFIED Status: Chronic Priority: Low Current Visit: No Annotation/Comment:: No acute changes per history (12) Hemiparesis affecting right side as late effect of stroke SNOMED Code(s): 568418483, 426259180 Code(s): I69.351 - HEMIPLGA FOLLOWING CEREBRAL INFRC AFF RIGHT DOMINANT SIDE Status: Chronic Priority: Medium Current Visit: No - Problem List Review Problem List Initiated/Reviewed/Updated: Yes - My Orders Last 24 Hours: My Active Orders 04/05/21 17:21 Sodium Chloride 0.9% [Saline Flush] 10 ml FLUSH ASDIRECTED PRN Saline Lock Insert [OM.PC] Routine 04/05/21 17:23 Chest 1V Frontal [CR] Stat Blood Culture x2 Reflex Set [OM.PC] Stat 04/05/21 17:48 Abdomen 1V Flat [CR] Stat 04/05/21 17:50 CULTURE BLOOD [BC] Stat 04/05/21 18:30 CULTURE BLOOD [BC] Stat - Assessment/Plan Admission H&P: Please use this note as an admission H&P Last 24 Hours: My Active Orders 04/05/21 17:21 Sodium Chloride 0.9% [Saline Flush] 10 ml FLUSH ASDIRECTED PRN Saline Lock Insert [OM.PC] Routine 04/05/21 17:23 Chest 1V Frontal [CR] Stat Blood Culture x2 Reflex Set [OM.PC] Stat 04/05/21 17:48 Abdomen 1V Flat [CR] Stat 04/05/21 17:50 CULTURE BLOOD [BC] Stat 04/05/21 18:30 CULTURE BLOOD [BC] Stat Assessment:: as above Plan: as above. Observe for any additional changes. Continue Unasyn. Anticipate 3-4+ days inpatient stay depending upon clinical course.
[2021-04-05] MEDS ORDERED: Ampicillin/Sulbactam Na 3 GM in Sodium Chloride 0.9% 100 ML IV ONE (18:20)
[2021-04-05 18:31] LABS: CHLORIDE,CL 106 mmol/L (98-107); SODIUM,NA 144 mmol/L (136-145)
[2021-04-05] MEDS: Sodium Chloride 0.9% 10 ML Syringe FLUSH PRN (19:20)
[2021-04-05] MEDS ORDERED: Albuterol 0.083% 2.5 MG/3 ML Neb Soln INH PRN (20:36)
[2021-04-05] MEDS ORDERED: Acetaminophen 500 MG Tab PO PRN (20:36)
[2021-04-05] MEDS ORDERED: Albuterol/Ipratropium 3.0-0.5 MG/3 ML Neb Soln INH PRN (20:36)
[2021-04-05] MEDS ORDERED: diphenhydrAMINE/Zinc Acetate 2% Crm 28.4 GM Tube TOP PRN (20:36)
[2021-04-05] MEDS ORDERED: Bisacodyl 5 MG Tab PO PRN (20:36)
[2021-04-05] MEDS ORDERED: Sodium Chloride 0.9% 1,000 ML IV SCH (21:45)
[2021-04-05] MEDS ORDERED: Lactulose Soln 10 GM/15 ML 30 ML UD Cup PO ONE (22:15)
[2021-04-05] MEDS: carBAMazepine 100 MG Cap.ER PO SCH (22:34)
[2021-04-05] MEDS: Simvastatin 20 MG Tab PO SCH (22:35)
[2021-04-05] MEDS: Phenytoin 100 MG Cap.ER PO SCH (22:36)
[2021-04-05] MEDS: Albuterol/Ipratropium 3.0-0.5 MG/3 ML Neb Soln INH SCH (22:37)
[2021-04-05] MEDS: Benztropine 1 MG Tab PO SCH (22:37)
[2021-04-06] MEDS: Ampicillin/Sulbactam Na 1.5 GM in Sodium Chloride 0.9% 100 ML IV SCH ×4 (01:47→19:55)
[2021-04-06] MEDS ORDERED: Albuterol/Ipratropium 3.0-0.5 MG/3 ML Neb Soln INH SCH (08:00)
[2021-04-06] MEDS ORDERED: Benztropine 1 MG Tab PO SCH (08:00)
[2021-04-06] MEDS ORDERED: CARBAMAZEPINE 200 MG PO SCH (08:00)
[2021-04-06] MEDS ORDERED: carBAMazepine 100 MG Cap.ER PO SCH (08:00)
[2021-04-06] MEDS ORDERED: Furosemide 20 MG Tab PO SCH (08:00)
[2021-04-06 08:10] LABS: CHLORIDE,CL 109 mmol/L (98-107); SODIUM,NA 145 mmol/L (136-145)
[2021-04-06] MEDS: carBAMazepine 100 MG Cap.ER PO SCH ×2 (08:59→20:02)
[2021-04-06] MEDS: Benztropine 1 MG Tab PO SCH ×2 (09:01→20:02)
[2021-04-06] MEDS: Aspirin 81 MG Tab.EC PO SCH (09:01)
[2021-04-06] MEDS: predniSONE 5 MG Tab PO SCH (09:01)
[2021-04-06] MEDS: Furosemide 40 MG/4 ML VIAL IVPUSH SCH (09:03)
[2021-04-06] MEDS: Albuterol/Ipratropium 3.0-0.5 MG/3 ML Neb Soln INH SCH ×3 (09:03→20:03)
[2021-04-06] MEDS: Sodium Chloride 0.9% 10 ML Syringe FLUSH PRN ×2 (09:07→19:58)
[2021-04-06] MEDS: Cyclobenzaprine 10 MG Tab PO SCH (11:52)
[2021-04-06] MEDS: Potassium Chloride 20 MEQ Tab.ER PO SCH (11:55)
[2021-04-06] MEDS: Polyethylene Glycol 3350 Powder 17 GM Packet PO SCH (11:59)
--- NOTE | 2021-04-06 12:42 | PCM.PN ---
- General Info Date of Service: 04/06/21 Admission Dx/Problem (Free Text): Patient admitted for suspected pneumonia after showing increased confusion/weakness/lethargy/fever/tachycardia. Subjective Update: Patient denies pain or other acute problems. Functional Status: Reports: Pain Controlled, New Symptoms, Other (Patient is not wanting to eat, is transfering with assistance) - Review of Systems General: Reports: Weakness, Appetite (poor). Denies: Fever, Chills, Night Sweats HEENT: Reports: Glasses. Denies: Post Nasal Drip, Sinus Congestion, Sore Throat Pulmonary: Reports: Cough. Denies: Shortness of Breath, Pleuritic Chest Pain, Sputum, Hemoptysis, Wheezing Cardiovascular: Denies: Chest Pain Gastrointestinal: Reports: Constipation (chronic), Decreased Appetite. Denies: Abdominal Pain, Nausea, Vomiting Genitourinary: Reports: No Symptoms Musculoskeletal: Reports: No Symptoms Skin: Reports: No Symptoms Neurological: Reports: Confusion Psychiatric: Reports: Confusion - Patient Data Vitals - Most Recent: Last Vital Signs Temp 37.1 C 04/06/21 12:00 Pulse 85 04/06/21 12:00 Resp 18 04/06/21 12:00 BP 105/65 04/06/21 12:00 Pulse Ox 90 L 04/06/21 12:00 Weight - Most Recent: 72.121 kg I&O - Last 24 Hours: Intake & Output 04/05/21 04/06/21 04/06/21 22:59 06:59 14:59 Intake Total 501 Output Total 250 1425 Balance @ 251 -1420 Lab Results Last 24 Hours: Laboratory Results - last 24 hr 04/05/21 04/05/21 04/05/21 Range/Units 17:50 17:50 17:50 WBC 11.3 H (4.0-10.2) K/uL RBC 4.76 (4.33-5.41) M/uL Hgb 15.4 (13.1-16.8) g/dL Hct 47.3 (39.0-49.0) % MCV 99.4 H (84.0-98.0) fL MCH 32.4 (28.2-33.3) pg MCHC 32.6 (31.7-36.0) g/dL RDW 14.0 (11.2-14.1) % Plt Count 178 (150-350) K/uL Neut % (Auto) 83.2 H (45.0-80.0) % Lymph % (Auto) 7.3 L (10.0-50.0) % Miner % (Auto) 8.8 (2.0-14.0) % Eos % (Auto) 0.5 (0.0-5.0) % Baso % (Auto) 0.2 (0.0-2.0) % Neut # (Auto) 9.39 H (1.40-7.00) K/uL Lymph # (Auto) 0.82 (0.50-3.50) K/uL Miner # (Auto) 0.99 (0.00-1.00) K/uL Eos # (Auto) 0.06 (0.00-0.50) K/uL Baso # (Auto) 0.02 (0.00-0.20) K/uL PT (9.5-12.0) SEC INR D-Dimer, Quantitative (0-400) ng/mL Sodium 144 (136-145) mmol/L Potassium 4.5 (3.5-5.1) mmol/L Chloride 106 (98-107) mmol/L Carbon Dioxide 27.7 (21.0-32.0) mmol/L BUN 27 H (7-18) mg/dL Creatinine 1.07 (0.51-1.17) mg/dL Est Cr Clr Drug Dosing TNP Estimated GFR (MDRD) > 60 mL/min Glucose 117 H (70-99) mg/dL Lactic Acid 0.9 (0.4-2.0) mmol/L Calcium 8.4 L (8.5-10.1) mg/dL Magnesium 2.3 (1.8-2.4) mg/dL Total Bilirubin 0.4 (0.2-1.0) mg/dL AST 14 L (15-37) U/L ALT 19 (12-78) U/L Alkaline Phosphatase 97 (46-116) IU/L Troponin I (0.000-0.056) ng/mL NT-Pro-B Natriuret Pep (0-125) pg/mL Total Protein 7.2 (6.4-8.2) g/dL Albumin 3.4 (3.4-5.0) g/dL Specimen Type Urine Color (YELLOW) Urine Appearance (CLEAR) Urine pH (5.0-9.0) Ur Specific Banner (1.005-1.030) Urine Protein (NEGATIVE) mg/dL Urine Glucose (UA) (NEGATIVE) mg/dL Urine Ketones (NEGATIVE) mg/dL Urine Occult Blood (NEGATIVE) Urine Nitrite (NEGATIVE) Urine Bilirubin (NEGATIVE) Urine Urobilinogen (0.2-1.0) E.U./dL Ur Leukocyte Esterase (NEGATIVE) U Hyaline Cast (Auto) Urine RBC /HPF Urine WBC /HPF Ur Epithelial Cells /LPF Amorphous Sediment (0/HPF) /HPF Urine Bacteria (NONE TO FEW) /HPF Urine Mucus (NEGATIVE) /LPF 04/05/21 04/05/21 04/05/21 Range/Units 17:50 17:50 17:50 WBC (4.0-10.2) K/uL RBC (4.33-5.41) M/uL Hgb (13.1-16.8) g/dL Hct (39.0-49.0) % MCV (84.0-98.0) fL MCH (28.2-33.3) pg MCHC (31.7-36.0) g/dL RDW (11.2-14.1) % Plt Count (150-350) K/uL Neut % (Auto) (45.0-80.0) % Lymph % (Auto) (10.0-50.0) % Miner % (Auto) (2.0-14.0) % Eos % (Auto) (0.0-5.0) % Baso % (Auto) (0.0-2.0) % Neut # (Auto) (1.40-7.00) K/uL Lymph # (Auto) (0.50-3.50) K/uL Miner # (Auto) (0.00-1.00) K/uL Eos # (Auto) (0.00-0.50) K/uL Baso # (Auto) (0.00-0.20) K/uL PT (9.5-12.0) SEC INR D-Dimer, Quantitative 317 (0-400) ng/mL Sodium (136-145) mmol/L Potassium (3.5-5.1) mmol/L Chloride (98-107) mmol/L Carbon Dioxide (21.0-32.0) mmol/L BUN (7-18) mg/dL Creatinine (0.51-1.17) mg/dL Est Cr Clr Drug Dosing Estimated GFR (MDRD) mL/min Glucose (70-99) mg/dL Lactic Acid (0.4-2.0) mmol/L Calcium (8.5-10.1) mg/dL Magnesium (1.8-2.4) mg/dL Total Bilirubin (0.2-1.0) mg/dL AST (15-37) U/L ALT (12-78) U/L Alkaline Phosphatase (46-116) IU/L Troponin I 0.000 (0.000-0.056) ng/mL NT-Pro-B Natriuret Pep 453 H (0-125) pg/mL Total Protein (6.4-8.2) g/dL Albumin (3.4-5.0) g/dL Specimen Type Urine Color (YELLOW) Urine Appearance (CLEAR) Urine pH (5.0-9.0) Ur Specific Banner (1.005-1.030) Urine Protein (NEGATIVE) mg/dL Urine Glucose (UA) (NEGATIVE) mg/dL Urine Ketones (NEGATIVE) mg/dL Urine Occult Blood (NEGATIVE) Urine Nitrite (NEGATIVE) Urine Bilirubin (NEGATIVE) Urine Urobilinogen (0.2-1.0) E.U./dL Ur Leukocyte Esterase (NEGATIVE) U Hyaline Cast (Auto) Urine RBC /HPF Urine WBC /HPF Ur Epithelial Cells /LPF Amorphous Sediment (0/HPF) /HPF Urine Bacteria (NONE TO FEW) /HPF Urine Mucus (NEGATIVE) /LPF 04/05/21 04/06/21 04/06/21 Range/Units 19:05 07:45 07:45 WBC (4.0-10.2) K/uL RBC (4.33-5.41) M/uL Hgb (13.1-16.8) g/dL Hct (39.0-49.0) % MCV (84.0-98.0) fL MCH (28.2-33.3) pg MCHC (31.7-36.0) g/dL RDW (11.2-14.1) % Plt Count (150-350) K/uL Neut % (Auto) (45.0-80.0) % Lymph % (Auto) (10.0-50.0) % Miner % (Auto) (2.0-14.0) % Eos % (Auto) (0.0-5.0) % Baso % (Auto) (0.0-2.0) % Neut # (Auto) (1.40-7.00) K/uL Lymph # (Auto) (0.50-3.50) K/uL Miner # (Auto) (0.00-1.00) K/uL Eos # (Auto) (0.00-0.50) K/uL Baso # (Auto) (0.00-0.20) K/uL PT (9.5-12.0) SEC INR D-Dimer, Quantitative (0-400) ng/mL Sodium 145 (136-145) mmol/L Potassium 4.6 (3.5-5.1) mmol/L Chloride 109 H (98-107) mmol/L Carbon Dioxide 31.6 (21.0-32.0) mmol/L BUN 24 H (7-18) mg/dL Creatinine 0.84 (0.51-1.17) mg/dL Est Cr Clr Drug Dosing 70.68 Estimated GFR (MDRD) > 60 mL/min Glucose 94 (70-99) mg/dL Lactic Acid 0.6 (0.4-2.0) mmol/L Calcium 7.5 L (8.5-10.1) mg/dL Magnesium (1.8-2.4) mg/dL Total Bilirubin 0.3 (0.2-1.0) mg/dL AST 13 L (15-37) U/L ALT 17 (12-78) U/L Alkaline Phosphatase 74 (46-116) IU/L Troponin I (0.000-0.056) ng/mL NT-Pro-B Natriuret Pep (0-125) pg/mL Total Protein 5.7 L (6.4-8.2) g/dL Albumin 2.7 L (3.4-5.0) g/dL Specimen Type Urinfol Urine Color Dark yellow H (YELLOW) Urine Appearance Slightly cloudy H (CLEAR) Urine pH 5.0 (5.0-9.0) Ur Specific Banner 1.025 (1.005-1.030) Urine Protein 30 H (NEGATIVE) mg/dL Urine Glucose (UA) Negative (NEGATIVE) mg/dL Urine Ketones Trace H (NEGATIVE) mg/dL Urine Occult Blood Negative (NEGATIVE) Urine Nitrite Negative (NEGATIVE) Urine Bilirubin Small H (NEGATIVE) Urine Urobilinogen 0.2 (0.2-1.0) E.U./dL Ur Leukocyte Esterase Negative (NEGATIVE) U Hyaline Cast (Auto) Few Urine RBC 0-5 /HPF Urine WBC 0-5 /HPF Ur Epithelial Cells Few /LPF Amorphous Sediment Few (0/HPF) /HPF Urine Bacteria Rare (NONE TO FEW) /HPF Urine Mucus Few H (NEGATIVE) /LPF 04/06/21 04/06/21 Range/Units 07:45 07:45 WBC 6.9 (4.0-10.2) K/uL RBC 4.12 L (4.33-5.41) M/uL Hgb 13.2 D (13.1-16.8) g/dL Hct 41.5 (39.0-49.0) % MCV 100.7 H (84.0-98.0) fL MCH 32.0 (28.2-33.3) pg MCHC 31.8 (31.7-36.0) g/dL RDW 13.8 (11.2-14.1) % Plt Count 140 L (150-350) K/uL Neut % (Auto) 72.1 (45.0-80.0) % Lymph % (Auto) 12.7 (10.0-50.0) % Miner % (Auto) 13.5 (2.0-14.0) % Eos % (Auto) 1.6 (0.0-5.0) % Baso % (Auto) 0.1 (0.0-2.0) % Neut # (Auto) 5.00 (1.40-7.00) K/uL Lymph # (Auto) 0.88 (0.50-3.50) K/uL Miner # (Auto) 0.94 (0.00-1.00) K/uL Eos # (Auto) 0.11 (0.00-0.50) K/uL Baso # (Auto) 0.01 (0.00-0.20) K/uL PT 10.1 (9.5-12.0) SEC INR 1.0 D-Dimer, Quantitative (0-400) ng/mL Sodium (136-145) mmol/L Potassium (3.5-5.1) mmol/L Chloride (98-107) mmol/L Carbon Dioxide (21.0-32.0) mmol/L BUN (7-18) mg/dL Creatinine (0.51-1.17) mg/dL Est Cr Clr Drug Dosing Estimated GFR (MDRD) mL/min Glucose (70-99) mg/dL Lactic Acid (0.4-2.0) mmol/L Calcium (8.5-10.1) mg/dL Magnesium (1.8-2.4) mg/dL Total Bilirubin (0.2-1.0) mg/dL AST (15-37) U/L ALT (12-78) U/L Alkaline Phosphatase (46-116) IU/L Troponin I (0.000-0.056) ng/mL NT-Pro-B Natriuret Pep (0-125) pg/mL Total Protein (6.4-8.2) g/dL Albumin (3.4-5.0) g/dL Specimen Type Urine Color (YELLOW) Urine Appearance (CLEAR) Urine pH (5.0-9.0) Ur Specific Banner (1.005-1.030) Urine Protein (NEGATIVE) mg/dL Urine Glucose (UA) (NEGATIVE) mg/dL Urine Ketones (NEGATIVE) mg/dL Urine Occult Blood (NEGATIVE) Urine Nitrite (NEGATIVE) Urine Bilirubin (NEGATIVE) Urine Urobilinogen (0.2-1.0) E.U./dL Ur Leukocyte Esterase (NEGATIVE) U Hyaline Cast (Auto) Urine RBC /HPF Urine WBC /HPF Ur Epithelial Cells /LPF Amorphous Sediment (0/HPF) /HPF Urine Bacteria (NONE TO FEW) /HPF Urine Mucus (NEGATIVE) /LPF Med Orders - Current: Current Medications Acetaminophen (Acetaminophen 500 Mg Tab) 1,000 mg PO DAILY PRN PRN Reason: Pain Albuterol (Albuterol 0.083% 2.5 Mg/3 Ml Neb Soln) 2.5 mg INH Q2HR PRN PRN Reason: Dyspnea Albuterol/Ipratropium (Albuterol/Ipratropium 3.0-0.5 Mg/3 Ml Neb Soln) 3 ml INH Q4HR PRN PRN Reason: Shortness of Breath Albuterol/Ipratropium (Albuterol/Ipratropium 3.0-0.5 Mg/3 Ml Neb Soln) 3 ml INH TID@0800,1399,1999 [facility] Aspirin (Aspirin 81 Mg Tab.Ec) 81 mg PO DAILY [facility] Last Admin: 04/06/21 09:01 Dose: 81 mg Documented by: Benztropine Mesylate (Benztropine 1 Mg Tab) 0.5 mg PO BID@ [facility] Last Admin: 04/06/21 09:01 Dose: 0.5 mg Documented by: Bisacodyl (Bisacodyl 5 Mg Tab) 5 - 15 mg PO DAILY PRN PRN Reason: Constipation Carbamazepine (Carbamazepine 100 Mg Cap.Er) 300 mg PO BID@ [facility] Last Admin: 04/06/21 08:59 Dose: 300 mg Documented by: Cyclobenzaprine HCl (Cyclobenzaprine 10 Mg Tab) 10 mg PO DAILY@1200 [facility] Last Admin: 04/06/21 11:52 Dose: 10 mg Documented by: Furosemide (Furosemide 40 Mg/4 Ml Vial) 40 mg IVPUSH DAILY [facility] Last Admin: 04/06/21 09:03 Dose: 40 mg Documented by: Ampicillin Sodium/Sulbactam (Sodium 1.5 gm/ Sodium Chloride) 100 mls @ 100 mls/hr IV Q6H [facility] Last Admin: 04/06/21 09:42 Dose: 100 mls/hr Documented by: Sodium Chloride (Normal Saline) 1,000 mls @ 75 mls/hr IV ASDIRECTED [facility] Last Admin: 04/05/21 22:34 Dose: 75 mls/hr Documented by: Lactulose (Lactulose Soln 10 Gm/15 Ml 30 Ml Ud Cup) 10 gm PO Q48H [facility] Phenytoin Sodium (Phenytoin 100 Mg Cap.Er) 300 mg PO BEDTIME [facility] Last Admin: 04/05/21 22:36 Dose: 300 mg Documented by: Polyethylene Glycol (Polyethylene Glycol 3350 Powder 17 Gm Packet) 17 gm PO DAILY@12 [facility] Last Admin: 04/06/21 11:59 Dose: 17 gm Documented by: Potassium Chloride (Potassium Chloride 20 Meq Tab.Er) 20 meq PO DAILY@1200 [facility] Last Admin: 04/06/21 11:55 Dose: 20 meq Documented by: Prednisone (Prednisone 5 Mg Tab) 5 mg PO WITHBREAKFAST [facility] Last Admin: 04/06/21 09:01 Dose: 5 mg Documented by: Senna/Docusate Sodium (Docusate Sodium/Sennosides 50-8.6 Mg Tab) 1 tab PO BID@799,1999 [facility] Last Admin: 04/06/21 09:00 Dose: 1 tab Documented by: Simvastatin (Simvastatin 20 Mg Tab) 40 mg PO BEDTIME [facility] Last Admin: 04/05/21 22:35 Dose: 40 mg Documented by: Sodium Chloride (Sodium Chloride 0.9% 10 Ml Syringe) 10 ml FLUSH ASDIRECTED PRN PRN Reason: Keep Vein Open Last Admin: 04/06/21 09:07 Dose: 10 ml Documented by: Zinc Acetate/Diphenhydramine (Diphenhydramine/Zinc Acetate 2% Crm 28.4 Gm Tube) 0 gm TOP Q4HR PRN PRN Reason: Itching Discontinued Medications Albuterol/Ipratropium (Albuterol/Ipratropium 3.0-0.5 Mg/3 Ml Neb Soln) 3 ml INH TID [facility] Albuterol/Ipratropium (Albuterol/Ipratropium 3.0-0.5 Mg/3 Ml Neb Soln) 3 ml INH TID [facility] Last Admin: 04/06/21 09:03 Dose: 3 ml Documented by: Benztropine Mesylate (Benztropine 1 Mg Tab) 0.5 mg PO BID@ [facility] Furosemide (Furosemide 20 Mg Tab) 40 mg PO 0800 [facility] Ampicillin Sodium/Sulbactam (Sodium 3 gm/ Sodium Chloride) 100 mls @ 100 mls/hr IV ONETIME ONE Stop: 04/05/21 19:19 Last Admin: 04/05/21 19:22 Dose: 100 mls/hr Documented by: Lactulose (Lactulose Soln 10 Gm/15 Ml 30 Ml Ud Cup) 10 gm PO ONETIME ONE Stop: 04/05/21 22:16 Last Admin: 04/05/21 22:34 Dose: 10 gm Documented by: Phenytoin Sodium (Phenytoin 100 Mg Cap.Er) 300 mg PO BEDTIME [facility] Senna/Docusate Sodium (Docusate Sodium/Sennosides 50-8.6 Mg Tab) 1 tab PO BID@0 800,2000 [facility] - Exam Quality Assessment: Supplemental Oxygen Urinary Catheter Total Time: 0Days 0Hours General: Alert, Cooperative, No Acute Distress, Other (oriented to self, not place/time/date) HEENT: Pupils Equal, Pupils Reactive, EOMI, Mucous Membr. Moist/[place] Neck: Supple Lungs: Normal Respiratory Effort, Decreased Breath Sounds, Other (poor inspiratory effort. No noted wheezes/rales/rhonchi. ) Cardiovascular: Regular Rate, Regular Rhythm GI/Abdominal Exam: Normal Bowel Sounds, Soft, Non-Tender, No Distention (Male) Exam: Deferred Back Exam: No: CVA Tenderness (L), CVA Tenderness (R) Extremities: Non-Tender, Normal Capillary Refill Skin: Warm, Dry Neurological: No New Focal Deficit Psy/Mental Status: Alert, Normal Affect, Normal Mood #1 Interpretation EKG Date: 04/06/21 Time: 08:04 Rate (Beats/Min): 79 [employer]: Normal P-Wave: Present QRS: Normal ST-T: Normal QT: Normal - Patient Data Lab Results Last 24 hrs: Laboratory Results - last 24 hr 04/05/21 04/05/21 04/05/21 Range/Units 17:50 17:50 17:50 WBC 11.3 H (4.0-10.2) K/uL RBC 4.76 (4.33-5.41) M/uL Hgb 15.4 (13.1-16.8) g/dL Hct 47.3 (39.0-49.0) % MCV 99.4 H (84.0-98.0) fL MCH 32.4 (28.2-33.3) pg MCHC 32.6 (31.7-36.0) g/dL RDW 14.0 (11.2-14.1) % Plt Count 178 (150-350) K/uL Neut % (Auto) 83.2 H (45.0-80.0) % Lymph % (Auto) 7.3 L (10.0-50.0) % Miner % (Auto) 8.8 (2.0-14.0) % Eos % (Auto) 0.5 (0.0-5.0) % Baso % (Auto) 0.2 (0.0-2.0) % Neut # (Auto) 9.39 H (1.40-7.00) K/uL Lymph # (Auto) 0.82 (0.50-3.50) K/uL Miner # (Auto) 0.99 (0.00-1.00) K/uL Eos # (Auto) 0.06 (0.00-0.50) K/uL Baso # (Auto) 0.02 (0.00-0.20) K/uL PT (9.5-12.0) SEC INR D-Dimer, Quantitative (0-400) ng/mL Sodium 144 (136-145) mmol/L Potassium 4.5 (3.5-5.1) mmol/L Chloride 106 (98-107) mmol/L Carbon Dioxide 27.7 (21.0-32.0) mmol/L BUN 27 H (7-18) mg/dL Creatinine 1.07 (0.51-1.17) mg/dL Est Cr Clr Drug Dosing TNP Estimated GFR (MDRD) > 60 mL/min Glucose 117 H (70-99) mg/dL Lactic Acid 0.9 (0.4-2.0) mmol/L Calcium 8.4 L (8.5-10.1) mg/dL Magnesium 2.3 (1.8-2.4) mg/dL Total Bilirubin 0.4 (0.2-1.0) mg/dL AST 14 L (15-37) U/L ALT 19 (12-78) U/L Alkaline Phosphatase 97 (46-116) IU/L Troponin I (0.000-0.056) ng/mL NT-Pro-B Natriuret Pep (0-125) pg/mL Total Protein 7.2 (6.4-8.2) g/dL Albumin 3.4 (3.4-5.0) g/dL Specimen Type Urine Color (YELLOW) Urine Appearance (CLEAR) Urine pH (5.0-9.0) Ur Specific Banner (1.005-1.030) Urine Protein (NEGATIVE) mg/dL Urine Glucose (UA) (NEGATIVE) mg/dL Urine Ketones (NEGATIVE) mg/dL Urine Occult Blood (NEGATIVE) Urine Nitrite (NEGATIVE) Urine Bilirubin (NEGATIVE) Urine Urobilinogen (0.2-1.0) E.U./dL Ur Leukocyte Esterase (NEGATIVE) U Hyaline Cast (Auto) Urine RBC /HPF Urine WBC /HPF Ur Epithelial Cells /LPF Amorphous Sediment (0/HPF) /HPF Urine Bacteria (NONE TO FEW) /HPF Urine Mucus (NEGATIVE) /LPF 04/05/21 04/05/21 04/05/21 Range/Units 17:50 17:50 17:50 WBC (4.0-10.2) K/uL RBC (4.33-5.41) M/uL Hgb (13.1-16.8) g/dL Hct (39.0-49.0) % MCV (84.0-98.0) fL MCH (28.2-33.3) pg MCHC (31.7-36.0) g/dL RDW (11.2-14.1) % Plt Count (150-350) K/uL Neut % (Auto) (45.0-80.0) % Lymph % (Auto) (10.0-50.0) % Miner % (Auto) (2.0-14.0) % Eos % (Auto) (0.0-5.0) % Baso % (Auto) (0.0-2.0) % Neut # (Auto) (1.40-7.00) K/uL Lymph # (Auto) (0.50-3.50) K/uL Miner # (Auto) (0.00-1.00) K/uL Eos # (Auto) (0.00-0.50) K/uL Baso # (Auto) (0.00-0.20) K/uL PT (9.5-12.0) SEC INR D-Dimer, Quantitative 317 (0-400) ng/mL Sodium (136-145) mmol/L Potassium (3.5-5.1) mmol/L Chloride (98-107) mmol/L Carbon Dioxide (21.0-32.0) mmol/L BUN (7-18) mg/dL Creatinine (0.51-1.17) mg/dL Est Cr Clr Drug Dosing Estimated GFR (MDRD) mL/min Glucose (70-99) mg/dL Lactic Acid (0.4-2.0) mmol/L Calcium (8.5-10.1) mg/dL Magnesium (1.8-2.4) mg/dL Total Bilirubin (0.2-1.0) mg/dL AST (15-37) U/L ALT (12-78) U/L Alkaline Phosphatase (46-116) IU/L Troponin I 0.000 (0.000-0.056) ng/mL NT-Pro-B Natriuret Pep 453 H (0-125) pg/mL Total Protein (6.4-8.2) g/dL Albumin (3.4-5.0) g/dL Specimen Type Urine Color (YELLOW) Urine Appearance (CLEAR) Urine pH (5.0-9.0) Ur Specific Banner (1.005-1.030) Urine Protein (NEGATIVE) mg/dL Urine Glucose (UA) (NEGATIVE) mg/dL Urine Ketones (NEGATIVE) mg/dL Urine Occult Blood (NEGATIVE) Urine Nitrite (NEGATIVE) Urine Bilirubin (NEGATIVE) Urine Urobilinogen (0.2-1.0) E.U./dL Ur Leukocyte Esterase (NEGATIVE) U Hyaline Cast (Auto) Urine RBC /HPF Urine WBC /HPF Ur Epithelial Cells /LPF Amorphous Sediment (0/HPF) /HPF Urine Bacteria (NONE TO FEW) /HPF Urine Mucus (NEGATIVE) /LPF 04/05/21 04/06/21 04/06/21 Range/Units 19:05 07:45 07:45 WBC (4.0-10.2) K/uL RBC (4.33-5.41) M/uL Hgb (13.1-16.8) g/dL Hct (39.0-49.0) % MCV (84.0-98.0) fL MCH (28.2-33.3) pg MCHC (31.7-36.0) g/dL RDW (11.2-14.1) % Plt Count (150-350) K/uL Neut % (Auto) (45.0-80.0) % Lymph % (Auto) (10.0-50.0) % Miner % (Auto) (2.0-14.0) % Eos % (Auto) (0.0-5.0) % Baso % (Auto) (0.0-2.0) % Neut # (Auto) (1.40-7.00) K/uL Lymph # (Auto) (0.50-3.50) K/uL Miner # (Auto) (0.00-1.00) K/uL Eos # (Auto) (0.00-0.50) K/uL Baso # (Auto) (0.00-0.20) K/uL PT (9.5-12.0) SEC INR D-Dimer, Quantitative (0-400) ng/mL Sodium 145 (136-145) mmol/L Potassium 4.6 (3.5-5.1) mmol/L Chloride 109 H (98-107) mmol/L Carbon Dioxide 31.6 (21.0-32.0) mmol/L BUN 24 H (7-18) mg/dL Creatinine 0.84 (0.51-1.17) mg/dL Est Cr Clr Drug Dosing 70.68 Estimated GFR (MDRD) > 60 mL/min Glucose 94 (70-99) mg/dL Lactic Acid 0.6 (0.4-2.0) mmol/L Calcium 7.5 L (8.5-10.1) mg/dL Magnesium (1.8-2.4) mg/dL Total Bilirubin 0.3 (0.2-1.0) mg/dL AST 13 L (15-37) U/L ALT 17 (12-78) U/L Alkaline Phosphatase 74 (46-116) IU/L Troponin I (0.000-0.056) ng/mL NT-Pro-B Natriuret Pep (0-125) pg/mL Total Protein 5.7 L (6.4-8.2) g/dL Albumin 2.7 L (3.4-5.0) g/dL Specimen Type Urinfol Urine Color Dark yellow H (YELLOW) Urine Appearance Slightly cloudy H (CLEAR) Urine pH 5.0 (5.0-9.0) Ur Specific Banner 1.025 (1.005-1.030) Urine Protein 30 H (NEGATIVE) mg/dL Urine Glucose (UA) Negative (NEGATIVE) mg/dL Urine Ketones Trace H (NEGATIVE) mg/dL Urine Occult Blood Negative (NEGATIVE) Urine Nitrite Negative (NEGATIVE) Urine Bilirubin Small H (NEGATIVE) Urine Urobilinogen 0.2 (0.2-1.0) E.U./dL Ur Leukocyte Esterase Negative (NEGATIVE) U Hyaline Cast (Auto) Few Urine RBC 0-5 /HPF Urine WBC 0-5 /HPF Ur Epithelial Cells Few /LPF Amorphous Sediment Few (0/HPF) /HPF Urine Bacteria Rare (NONE TO FEW) /HPF Urine Mucus Few H (NEGATIVE) /LPF 04/06/21 04/06/21 Range/Units 07:45 07:45 WBC 6.9 (4.0-10.2) K/uL RBC 4.12 L (4.33-5.41) M/uL Hgb 13.2 D (13.1-16.8) g/dL Hct 41.5 (39.0-49.0) % MCV 100.7 H (84.0-98.0) fL MCH 32.0 (28.2-33.3) pg MCHC 31.8 (31.7-36.0) g/dL RDW 13.8 (11.2-14.1) % Plt Count 140 L (150-350) K/uL Neut % (Auto) 72.1 (45.0-80.0) % Lymph % (Auto) 12.7 (10.0-50.0) % Miner % (Auto) 13.5 (2.0-14.0) % Eos % (Auto) 1.6 (0.0-5.0) % Baso % (Auto) 0.1 (0.0-2.0) % Neut # (Auto) 5.00 (1.40-7.00) K/uL Lymph # (Auto) 0.88 (0.50-3.50) K/uL Miner # (Auto) 0.94 (0.00-1.00) K/uL Eos # (Auto) 0.11 (0.00-0.50) K/uL Baso # (Auto) 0.01 (0.00-0.20) K/uL PT 10.1 (9.5-12.0) SEC INR 1.0 D-Dimer, Quantitative (0-400) ng/mL Sodium (136-145) mmol/L Potassium (3.5-5.1) mmol/L Chloride (98-107) mmol/L Carbon Dioxide (21.0-32.0) mmol/L BUN (7-18) mg/dL Creatinine (0.51-1.17) mg/dL Est Cr Clr Drug Dosing Estimated GFR (MDRD) mL/min Glucose (70-99) mg/dL Lactic Acid (0.4-2.0) mmol/L Calcium (8.5-10.1) mg/dL Magnesium (1.8-2.4) mg/dL Total Bilirubin (0.2-1.0) mg/dL AST (15-37) U/L ALT (12-78) U/L Alkaline Phosphatase (46-116) IU/L Troponin I (0.000-0.056) ng/mL NT-Pro-B Natriuret Pep (0-125) pg/mL Total Protein (6.4-8.2) g/dL Albumin (3.4-5.0) g/dL Specimen Type Urine Color (YELLOW) Urine Appearance (CLEAR) Urine pH (5.0-9.0) Ur Specific Banner (1.005-1.030) Urine Protein (NEGATIVE) mg/dL Urine Glucose (UA) (NEGATIVE) mg/dL Urine Ketones (NEGATIVE) mg/dL Urine Occult Blood (NEGATIVE) Urine Nitrite (NEGATIVE) Urine Bilirubin (NEGATIVE) Urine Urobilinogen (0.2-1.0) E.U./dL Ur Leukocyte Esterase (NEGATIVE) U Hyaline Cast (Auto) Urine RBC /HPF Urine WBC /HPF Ur Epithelial Cells /LPF Amorphous Sediment (0/HPF) /HPF Urine Bacteria (NONE TO FEW) /HPF Urine Mucus (NEGATIVE) /LPF Result Diagrams: 04/06/21 07:45 04/06/21 07:45 Sepsis Event Note - Evaluation Sepsis Screening Result: No Definite Risk - Focused Exam Vital Signs: Vital Signs Temp Pulse Resp BP Pulse Ox 04/06/21 12:00 37.1 C 85 18 105/65 90 L 04/06/21 08:00 37.1 C 72 16 116/65 92 L 04/06/21 04:00 36.8 C 86 16 129/72 96 - Problem List & Annotations (1) Fever SNOMED Code(s): 861114695 Code(s): R50.9 - FEVER, UNSPECIFIED Status: Acute Priority: High Current Visit: Yes Onset Date: 04/05/21 Qualifiers: Fever type: unspecified Qualified Code(s): R50.9 - Fever, unspecified Annotation/Comment:: Fever/lethargy/weakness/increased confusion/tachy day of admission. Improving. Afebrile at this time. Suspect developing aspiration pneumonia. Blood cultures pending. IV Unasyn initiated in ER. (2) Pneumonia, aspiration SNOMED Code(s): 517705032 Code(s): J69.0 - PNEUMONITIS DUE TO INHALATION OF FOOD AND VOMIT Status: Acute Priority: High Current Visit: No Qualifiers: Aspiration pneumonia type: unspecified Laterality: bilateral Lung location: lower lobe of lung Qualified Code(s): J69.0 - Pneumonitis due to inhalation of food and vomit Annotation/Comment:: as above. (3) Hypoxemia SNOMED Code(s): 272188389 Code(s): R09.02 - HYPOXEMIA Status: Chronic Priority: Medium Current Visit: Yes Annotation/Comment:: Chronic. Patient has O2 via [facility] at [facility] but only will use it intermittently. Staff from [facility] note that he is frequently in high 80s when pulse oximetry checked. When on O2 usually has 2-3L flow. Need to have flow increased in ER to 4-5L to keep sats around low 90s. (4) Dysphagia causing pulmonary aspiration with swallowing SNOMED Code(s): 71607104, 34260982 Code(s): R13.19 - OTHER DYSPHAGIA Status: Chronic Priority: High Current Visit: Yes (5) COPD (chronic obstructive pulmonary disease) SNOMED Code(s): 85566768 Code(s): J44.9 - CHRONIC OBSTRUCTIVE PULMONARY DISEASE, UNSPECIFIED Status: Chronic Priority: Medium Current Visit: Yes Qualifiers: COPD type: unspecified COPD Qualified Code(s): J44.9 - Chronic obstructive pulmonary disease, unspecified Annotation/Comment:: No acute changes recently per [facility] (6) BPH (benign prostatic hyperplasia) SNOMED Code(s): 854234274 Code(s): N40.0 - BENIGN PROSTATIC HYPERPLASIA WITHOUT LOWER URINRY TRACT SYMP Status: Chronic Priority: Low Current Visit: No Qualifiers: Lower urinary tract symptom presence: unspecified whether lower urinary tract symptoms present Qualified Code(s): N40.0 - Benign prostatic hyperplasia without lower urinary tract symptoms Annotation/Comment:: No acute changes per [facility] (7) GERD (gastroesophageal reflux disease) SNOMED Code(s): 589060279 Code(s): K21.9 - GASTRO-ESOPHAGEAL REFLUX DISEASE WITHOUT ESOPHAGITIS Status: Chronic Priority: Low Current Visit: No Qualifiers: Esophagitis presence: esophagitis presence not specified Qualified Code(s): K21.9 - Gastro-esophageal reflux disease without esophagitis Annotation/Comment:: No acute changes per [facility] (8) Epilepsy SNOMED Code(s): 37249867 Code(s): G40.909 - EPILEPSY, UNSP, NOT INTRACTABLE, WITHOUT STATUS EPILEPTICUS Status: Chronic Priority: Low Current Visit: No Qualifiers: Epilepsy type: unspecified Annotation/Comment:: No acute changes reported. (9) Osteoporosis SNOMED Code(s): 30215139 Code(s): M81.0 - AGE-RELATED OSTEOPOROSIS W/O CURRENT PATHOLOGICAL FRACTURE Status: Chronic Priority: Low Current Visit: No Qualifiers: Osteoporosis type: unspecified Annotation/Comment:: No acute changes reported. (10) Alcoholic dementia SNOMED Code(s): 770178 Code(s): F10.27 - ALCOHOL DEPENDENCE WITH ALCOHOL-INDUCED PERSISTING DEMENTIA Status: Chronic Priority: Medium Current Visit: Yes Annotation/Comment:: increased confusion noted per [facility] staff today (11) Hyperlipemia SNOMED Code(s): 88294083 Code(s): E78.5 - HYPERLIPIDEMIA, UNSPECIFIED Status: Chronic Priority: Low Current Visit: No Qualifiers: Hyperlipidemia type: unspecified Qualified Code(s): E78.5 - Hyperlipidemia, unspecified Annotation/Comment:: Under therapy (12) Depression SNOMED Code(s): 06018577 Code(s): F32.9 - MAJOR DEPRESSIVE DISORDER, SINGLE EPISODE, UNSPECIFIED Sta tus: Chronic Priority: Low Current Visit: No Annotation/Comment:: No acute changes per history (13) Hemiparesis affecting right side as late effect of stroke SNOMED Code(s): 922598571, 361530105 Code(s): I69.351 - HEMIPLGA FOLLOWING CEREBRAL INFRC AFF RIGHT DOMINANT SIDE Status: Chronic Priority: Medium Current Visit: No - Problem List Review Problem List Initiated/Reviewed/Updated: Yes - My Orders Last 24 Hours: My Active Orders 04/05/21 17:21 Sodium Chloride 0.9% [Saline Flush] 10 ml FLUSH ASDIRECTED PRN Saline Lock Insert [OM.PC] Routine 04/05/21 17:23 Chest 1V Frontal [CR] Stat Blood Culture x2 Reflex Set [OM.PC] Stat 04/05/21 17:48 Abdomen 1V Flat [CR] Stat 04/05/21 17:50 CULTURE BLOOD [BC] Stat 04/05/21 18:30 CULTURE BLOOD [BC] Stat 04/05/21 20:33 Patient Status [ADT] Routine Oxygen Therapy [RC] 2300 Up With Assistance [RC] ASDIRECTED VTE/DVT Education [RC] PER UNIT ROUTINE Vital Signs [RC] Q4H Resuscitation Status Routine 04/05/21 20:34 Intake and Output [RC] QSHIFT Pulse Oximetry [RC] .PRN 04/05/21 20:36 Acetaminophen [Tylenol Extra Strength] 1,000 mg PO DAILY PRN Albuterol [Proventil Neb Soln] 2.5 mg INH Q2HR PRN Albuterol/Ipratropium [DuoNeb 3.0-0.5 MG/3 ML] 3 ml INH Q4HR PRN bisacodyL [Dulcolax] 5 - 15 mg PO DAILY PRN diphenhydrAMINE/Zinc Acetate [Banophen Anti-Itch 2% Crm] 0 gm TOP Q4HR PRN 04/05/21 20:39 RT Aerosol Therapy [RC] 08,,04/05/21 21:31 EKG Documentation Completion [RC] 0804/05/21 21:45 Sodium Chloride 0.9% [Normal Saline] 1,000 ml IV ASDIRECTED 04/05/21 22:15 Benztropine [Cogentin] 0.5 mg PO BID@ Simvastatin [Zocor] 40 mg PO BEDTIME carBAMazepine [TEGretol XR] 300 mg PO BID@799,199904/05/21 22:30 Docusate Sodium/Sennosides [Senna Plus] 1 tab PO BID@ Phenytoin 300 mg PO BEDTIME 04/06/21 01:00 Ampicillin/Sulbactam Na [Unasyn] 1.5 gm Sodium Chloride 0.9% [Normal Saline] 100 ml IV Q6H 04/06/21 Breakfast Full Liquid Diet [DIET] 04/06/21 08:00 Aspirin [Halfprin] 81 mg PO DAILY Furosemide [Lasix] 40 mg IVPUSH DAILY predniSONE 5 mg PO WITHBREAKFAST 04/06/21 12:00 Cyclobenzaprine [Flexeril] 10 mg PO DAILY@1200 Potassium Chloride [Klor-Con M20] 20 meq PO DAILY@1200 polyethylene glycoL 3350 [MiraLAX] 17 gm PO DAILY@12 04/06/21 14:00 Albuterol/Ipratropium [DuoNeb 3.0-0.5 MG/3 ML] 3 ml INH TID@0800,1400,199904/07/21 21:00 Lactulose [Cephulac] 10 gm PO Q48H - Assessment Assessment:: as above. - Plan Plan:: Patient improving overall. Still is not wanting to eat. Anticipate discharge tomorrow back to [facility] on oral antibiotics if he continues to do well. to take over patient's care in AM.
[2021-04-06] MEDS ORDERED: Phenytoin 100 MG Cap.ER PO SCH (20:00)
[2021-04-06] MEDS: Simvastatin 20 MG Tab PO SCH (20:03)
[2021-04-06] MEDS: Phenytoin 100 MG Cap.ER PO SCH (20:03)
[2021-04-07] MEDS: Sodium Chloride 0.9% 10 ML Syringe FLUSH PRN ×3 (00:29→19:22)
[2021-04-07] MEDS: Ampicillin/Sulbactam Na 1.5 GM in Sodium Chloride 0.9% 100 ML IV SCH ×4 (00:29→19:22)
[2021-04-07] MEDS: predniSONE 5 MG Tab PO SCH (07:34)
[2021-04-07] MEDS: Aspirin 81 MG Tab.EC PO SCH (07:35)
[2021-04-07] MEDS: Benztropine 1 MG Tab PO SCH ×2 (07:35→19:28)
[2021-04-07] MEDS: Albuterol/Ipratropium 3.0-0.5 MG/3 ML Neb Soln INH SCH ×3 (07:36→19:29)
[2021-04-07] MEDS: Furosemide 40 MG/4 ML VIAL IVPUSH SCH (07:36)
[2021-04-07] MEDS: carBAMazepine 100 MG Cap.ER PO SCH ×2 (08:16→19:28)
--- NOTE | 2021-04-07 09:53 | PCM.PN ---
- General Info Date of Service: 04/07/21 Admission Dx/Problem (Free Text): 1. Aspiration pneumonia 2. CHF 3. COPD 4. Confusion Subjective Update: Patient denies pain or other acute problems, however he is an overall poor historian. Functional Status: Reports: Pain Controlled, Ambulating (With assist), Urinating (Woodward catheter in place), Incentive Spirometry. Denies: Tolerating Diet (Patient refusing to eat), New Symptoms Pain Score: 0 (Patient is a poor historian) - Review of Systems General: Reports: Fever (Afebrile this morning with maximum temperature of 37.3 degrees during the last 24 hours), Weakness (Stable right hemiparesis). Denies: Fatigue, Malaise, Chills, Night Sweats, Appetite (Okay but refuses to eat) HEENT: Reports: Glasses Pulmonary: Reports: Shortness of Breath, Cough. Denies: Pleuritic Chest Pain, Sputum Cardiovascular: Reports: No Symptoms. Denies: Chest Pain, Orthopnea, Edema Gastrointestinal: Reports: No Symptoms Musculoskeletal: Reports: No Symptoms, Other (Woodward catheter) Skin: Reports: No Symptoms Neurological: Reports: Confusion (Improved since admission), Difficulty Walking (Stable), Weakness (Stable moderate to severe spastic right hemiparesis) Psychiatric: Reports: Confusion (As above). Denies: Agitation, Cravings, Hallucinations - Patient Data Vitals - Most Recent: Last Vital Signs Temp 36.9 C 04/07/21 08:00 Pulse 82 04/07/21 08:00 Resp 18 04/07/21 08:00 BP 112/62 04/07/21 08:00 Pulse Ox 85 L 04/07/21 08:00 Vital Signs - 24 hr 04/06/21 04/06/21 04/06/21 12:00 16:00 19:51 Temperature [ 37.1 C 37.3 C 37.1 C Temporal] Pulse, 85 89 82 Peripheral [ Right Pulse Oximetry] Respiratory 18 18 20 Rate Blood Pressure 105/65 100/55 L 101/41 L [Left Lower Arm ] O2 Sat by Pulse 90 L 90 L 90 L Oximetry 04/07/21 04/07/21 00:00 08:00 Temperature [ 37.3 C 36.9 C Temporal] Pulse, 76 82 Peripheral [ Right Pulse Oximetry] Respiratory 20 18 Rate Blood Pressure 112/60 112/62 [Left Lower Arm ] O2 Sat by Pulse 91 L 85 L Oximetry Note last O2 sat of 85% was a false reading with repeat O2 sat of 96% on 4 L/min by nasal cannula at time of rounds with O2 therapy to be decreased/tapered Weight - Most Recent: 72.121 kg I&O - Last 24 Hours: Intake & Output 04/06/21 04/07/21 04/07/21 22:59 06:59 14:59 Intake Total 440 350 440 Output Total 32% 200 Balance 11E 150 44@ Imaging Impressions - Last 24 Hours: nurse monitoring showed normal sinus rhythm in the 70s with no ectopy or arrhythmia Lab Results Last 24 Hours: None Pravin Results Last 24 Hours: Microbiology 04/05/21 18:30 Aerobic Blood Culture - Preliminary Blood - Venous - Lab Draw NO GROWTH AFTER 1 DAY Anaerobic Blood Culture - Preliminary NO GROWTH AFTER 1 DAY 04/05/21 17:50 Aerobic Blood Culture - Preliminary Blood - Venous NO GROWTH AFTER 1 DAY Anaerobic Blood Culture - Preliminary NO GROWTH AFTER 1 DAY Urine specimen apparently not set up for culture and sensitivity. Med Orders - Current: Current Medications Acetaminophen (Acetaminophen 500 Mg Tab) 1,000 mg PO DAILY PRN PRN Reason: Pain Albuterol (Albuterol 0.083% 2.5 Mg/3 Ml Neb Soln) 2.5 mg INH Q2HR PRN PRN Reason: Dyspnea Albuterol/Ipratropium (Albuterol/Ipratropium 3.0-0.5 Mg/3 Ml Neb Soln) 3 ml INH Q4HR PRN PRN Reason: Shortness of Breath Albuterol/Ipratropium (Albuterol/Ipratropium 3.0-0.5 Mg/3 Ml Neb Soln) 3 ml INH TID@0800,1399,1999 [facility] Last Admin: 04/07/21 07:36 Dose: 3 ml Documented by: Aspirin (Aspirin 81 Mg Tab.Ec) 81 mg PO DAILY [facility] Last Admin: 04/07/21 07:35 Dose: 81 mg Documented by: Benztropine Mesylate (Benztropine 1 Mg Tab) 0.5 mg PO BID@799,1999 [facility] Last Admin: 04/07/21 07:35 Dose: 0.5 mg Documented by: Bisacodyl (Bisacodyl 5 Mg Tab) 5 - 15 mg PO DAILY PRN PRN Reason: Constipation Carbamazepine (Carbamazepine 100 Mg Cap.Er) 300 mg PO BID@ [facility] Last Admin: 04/07/21 08:16 Dose: 300 mg Documented by: Cyclobenzaprine HCl (Cyclobenzaprine 10 Mg Tab) 10 mg PO DAILY@1200 [facility] Last Admin: 04/06/21 11:52 Dose: 10 mg Documented by: Furosemide (Furosemide 40 Mg/4 Ml Vial) 40 mg IVPUSH DAILY [facility] Last Admin: 04/07/21 07:36 Dose: 40 mg Documented by: Ampicillin Sodium/Sulbactam (Sodium 1.5 gm/ Sodium Chloride) 100 mls @ 200 mls/hr IV Q6H [facility] Metronidazole 500 mg/ Premix 100 mls @ 100 mls/hr IV Q8H [facility] Lactulose (Lactulose Soln 10 Gm/15 Ml 30 Ml Ud Cup) 10 gm PO Q48H [facility] Phenytoin Sodium (Phenytoin 100 Mg Cap.Er) 300 mg PO BEDTIME [facility] Last Admin: 04/06/21 20:03 Dose: 300 mg Documented by: Polyethylene Glycol (Polyethylene Glycol 3350 Powder 17 Gm Packet) 17 gm PO DAILY@12 [facility] Last Admin: 04/06/21 11:59 Dose: 17 gm Documented by: Potassium Chloride (Potassium Chloride 20 Meq Tab.Er) 20 meq PO DAILY@1200 [facility] Last Admin: 04/06/21 11:55 Dose: 20 meq Documented by: Prednisone (Prednisone 5 Mg Tab) 5 mg PO WITHBREAKFAST [facility] Last Admin: 04/07/21 07:34 Dose: 5 mg Documented by: Senna/Docusate Sodium (Docusate Sodium/Sennosides 50-8.6 Mg Tab) 1 tab PO BID@ [facility] Last Admin: 04/07/21 07:34 Dose: 1 tab Documented by: Simvastatin (Simvastatin 20 Mg Tab) 40 mg PO BEDTIME [facility] Last Admin: 04/06/21 20:03 Dose: 40 mg Documented by: Sodium Chloride (Sodium Chloride 0.9% 10 Ml Syringe) 10 ml FLUSH ASDIRECTED PRN PRN Reason: Keep Vein Open Last Admin: 04/07/21 00:29 Dose: 10 ml Documented by: Zinc Acetate/Diphenhydramine (Diphenhydramine/Zinc Acetate 2% Crm 28.4 Gm Tube) 0 gm TOP Q4HR PRN PRN Reason: Itching Discontinued Medications Albuterol/Ipratropium (Albuterol/Ipratropium 3.0-0.5 Mg/3 Ml Neb Soln) 3 ml INH TID [facility] Albuterol/Ipratropium (Albuterol/Ipratropium 3.0-0.5 Mg/3 Ml Neb Soln) 3 ml INH TID [facility] Last Admin: 04/06/21 09:03 Dose: 3 ml Documented by: Benztropine Mesylate (Benztropine 1 Mg Tab) 0.5 mg PO BID@799,1999 [facility] Furosemide (Furosemide 20 Mg Tab) 40 mg PO 0800 [facility] Ampicillin Sodium/Sulbactam (Sodium 3 gm/ Sodium Chloride) 100 mls @ 100 mls/hr IV ONETIME ONE Stop: 04/05/21 19:19 Last Admin: 04/05/21 19:22 Dose: 100 mls/hr Documented by: Ampicillin Sodium/Sulbactam (Sodium 1.5 gm/ Sodium Chloride) 100 mls @ 100 mls/hr IV Q6H [facility] Last Admin: 04/07/21 07:17 Dose: 100 mls/hr Documented by: Sodium Chloride (Normal Saline) 1,000 mls @ 75 mls/hr IV ASDIRECTED [facility] Last Admin: 04/05/21 22:34 Dose: 75 mls/hr Documented by: Lactulose (Lactulose Soln 10 Gm/15 Ml 30 Ml Ud Cup) 10 gm PO ONETIME ONE Stop: 04/05/21 22:16 Last Admin: 04/05/21 22:34 Dose: 10 gm Documented by: Phenytoin Sodium (Phenytoin 100 Mg Cap.Er) 300 mg PO BEDTIME [facility] Senna/Docusate Sodium (Docusate Sodium/Sennosides 50-8.6 Mg Tab) 1 tab PO BID@799,1999 [facility] - Exam Quality Assessment: Supplemental Oxygen, Urine Catheter, DVT Prophylaxis. No: Central Line/PICC, Skin Breakdown Urinary Catheter Total Time: 1Days 14Hours General: Alert, Cooperative, No Acute Distress, Other (Stable moderate confusion/organic brain syndrome) HEENT: Pupils Equal, Pupils Reactive, EOMI, Mucous Membr. Moist/[place], Other (Patient is wearing glasses with no vertigo or nystagmus) Neck: Supple, Trachea Midline, No JVD, No Thyromegaly. No: Lymphadenopathy Lungs: Normal Respiratory Effort, Rales (Mild bilateral mostly basilar). No: Decreased Breath Sounds, Rhonchi, Rub, Wheezing Cardiovascular: Regular Rate, Regular Rhythm, No Murmurs. No: Gallops, Rubs GI/Abdominal Exam: Normal Bowel Sounds, Soft, Non-Tender, No Organomegaly, No Distention, No Abnormal Bruit, No Mass, Other (Obese). No: Guarding (Male) Exam: Deferred Back Exam: Full Range of Motion, Other (Mild scoliosis). No: CVA Tenderness (L), CVA Tenderness (R), Muscle Spasm, Paraspinal Tenderness, Vertebral Tenderness Extremities: No Pedal Edema, Limited Range of Motion (Right hemiparesis with right leg brace). No: Therese's Sign Peripheral Pulses: 2+: Radial (L), Radial (R) Skin: Warm, Intact, Other (Multiple tattoos). No: Ecchymosis Neurological: No New Focal Deficit, Other (Stable moderate confusion and moderate to severe right spastic hemiparesis) Psy/Mental Status: Alert, Normal Affect, Normal Mood. No: Agitated, Hallucinations, Withdrawal Symptoms - Patient Data Result Diagrams: 04/06/21 07:45 04/06/21 07:45 Pravin Results Last 24 hrs: Microbiology 04/05/21 18:30 Aerobic Blood Culture - Preliminary Blood - Venous - Lab Draw NO GROWTH AFTER 1 DAY Anaerobic Blood Culture - Preliminary NO GROWTH AFTER 1 DAY 04/05/21 17:50 Aerobic Blood Culture - Preliminary Blood - Venous NO GROWTH AFTER 1 DAY Anaerobic Blood Culture - Preliminary NO GROWTH AFTER 1 DAY Sepsis Event Note - Evaluation Sepsis Screening Result: No Definite Risk - Focused Exam Vital Signs: Vital Signs Temp Pulse Resp BP Pulse Ox 04/07/21 08:00 36.9 C 82 18 112/62 85 L 04/07/21 00:00 37.3 C 76 20 112/60 91 L - Problem List & Annotations (1) Pneumonia, aspiration SNOMED Code(s): 602374299 Code(s): J69.0 - PNEUMONITIS DUE TO INHALATION OF FOOD AND VOMIT Status: Acute Priority: High Current Visit: Yes Onset Date: ~04/05/21 Qualifiers: Aspiration pneumonia type: unspecified Laterality: bilateral Lung location: lower lobe of lung Qualified Code(s): J69.0 - Pneumonitis due to inhalation of food and vomit Annotation/Comment:: Likely aspiration pneumonia. Continue Unasyn. Additional IV Flagyl therapy initiated on 04/07. Note somewhat refractory pneumonia with fever on 04/07 and planned transfer back to [facility] in [place] delayed for now. Attempt to obtain a sputum for culture and sensitivity. Previous leukocytosis resolved on 04/06. (2) COPD (chronic obstructive pulmonary disease) SNOMED Code(s): 80837908 Code(s): J44.9 - CHRONIC OBSTRUCTIVE PULMONARY DISEASE, UNSPECIFIED Status: Chronic Priority: Medium Current Visit: Yes Qualifiers: COPD type: COPD with acute lower respiratory infection Qualified Code(s): J44.0 - Chronic obstructive pulmonary disease with (acute) lower respiratory infection Annotation/Comment:: Note aspiration pneumonia as above. Attempt incentive spirometry, however may be difficult secondary to patient's mental status, etc.. Note steroid-dependent COPD. (3) Need for comfort care SNOMED Code(s): 049695157, 602601285 Code(s): CWF1667 - Status: Chronic Priority: Medium Current Visit: Yes Annotation/Comment:: Prognosis guarded secondary to multiple healthcare issues as per emergency room note and as above/below. CODE STATUS confirmed from long term records and by [facility] physician on admission. (4) Hypoalbuminemia SNOMED Code(s): 850500783 Code(s): E88.09 - OTH DISORDERS OF PLASMA-PROTEIN METABOLISM, NEC Status: Chronic Priority: Medium Current Visit: Yes Annotation/Comment:: Observe for now (5) Hypocalcemia SNOMED Code(s): 6011750 Code(s): E83.51 - HYPOCALCEMIA Status: Chronic Priority: Medium Current Visit: Yes Annotation/Comment:: Observe for now (6) GERD (gastroesophageal reflux disease) SNOMED Code(s): 254464819 Code(s): K21.9 - GASTRO-ESOPHAGEAL REFLUX DISEASE WITHOUT ESOPHAGITIS Status: Chronic Priority: Medium Current Visit: Yes Qualifiers: Esophagitis presence: esophagitis presence not specified Qualified Code(s): K21.9 - Gastro-esophageal reflux disease without esophagitis Annotation/Comment:: No recent or current complaints. Continue to observe closely. (7) Hemiparesis affecting right side as late effect of stroke SNOMED Code(s): 810690695, 994255916 Code(s): I69.351 - HEMIPLGA FOLLOWING CEREBRAL INFRC AFF RIGHT DOMINANT SIDE Status: Chronic Priority: Medium Current Visit: Yes Annotation/Comment:: Stable with no change in his neurological status either prior to admission or during this hospitalization. (8) Alcoholic dementia SNOMED Code(s): 480607 Code(s): F10.27 - ALCOHOL DEPENDENCE WITH ALCOHOL-INDUCED PERSISTING DEMENTIA Status: Chronic Priority: Medium Current Visit: Yes Qualifiers: Dementia behavioral disturbance: without behavioral disturbance Qualified Code(s): F10.27 - Alcohol dependence with alcohol-induced persisting dementia Annotation/Comment:: Increased confusion noted per [facility] staff prior to admission likely secondary to his aspiration pneumonia. Patient appears to be back to his normal baseline status on 04/07. 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 No evidence of DTs, etc. during this hospitalization. (9) Dysphagia as late effect of cerebrovascular accident (CVA) SNOMED Code(s): 939189356 Code(s): I69.391 - DYSPHAGIA FOLLOWING CEREBRAL INFARCTION Status: Chronic Priority: High Current Visit: Yes Annotation/Comment:: Note recurrent aspiration pneumonia. Patient refused aspiration diet including thickened liquids, etc. Strict aspiration precautions initiated on 04/07 - Problem List Review Problem List Initiated/Reviewed/Updated: Yes - My Orders Last 24 Hours: My Active Orders 04/07/21 10:00 metroNIDAZOLE/Normal Saline [Flagyl in NS 500 MG/100 ML] 500 mg Premix Bag 1 bag IV Q8H 04/07/21 Lunch Fluid Restriction [DIET] 04/08/21 05:11 EKG Documentation Completion [RC] ASDIRECTED Chest 1V Frontal [CR] Routine BASIC METABOLIC PANEL,BMP [CHEM] Routine CBC WITH AUTO DIFF [HEME] Routine CK W CKMB [CHEM] Routine PRO B-TYPE NATRIUR PEPT,BNPPRO [CHEM] Routine TROPONIN I [CHEM] Routine EKG 12 Lead [EK] Routine - Assessment Assessment:: as above. - Plan Plan:: As above. Extensive precautions were given to the patient, who is in agreement with the treatment plan. The patient will require about 1-2 days of inpatient/acute care secondary to multiple health problems as above.
[2021-04-07] MEDS: metroNIDAZOLE/Normal Saline 500 MG in Premix Bag 1 BAG IV SCH ×2 (10:39→18:00)
[2021-04-07] MEDS: Potassium Chloride 20 MEQ Tab.ER PO SCH (11:09)
[2021-04-07] MEDS: Cyclobenzaprine 10 MG Tab PO SCH (11:09)
[2021-04-07] MEDS: Polyethylene Glycol 3350 Powder 17 GM Packet PO SCH (11:10)
[2021-04-07] MEDS: Phenytoin 100 MG Cap.ER PO SCH (19:28)
[2021-04-07] MEDS: Simvastatin 20 MG Tab PO SCH (19:28)
[2021-04-07] MEDS: Lactulose Soln 10 GM/15 ML 30 ML UD Cup PO SCH (20:35)
[2021-04-08] MEDS: Ampicillin/Sulbactam Na 1.5 GM in Sodium Chloride 0.9% 100 ML IV SCH ×4 (01:16→19:25)
[2021-04-08] MEDS: Sodium Chloride 0.9% 10 ML Syringe FLUSH PRN ×3 (01:17→17:36)
[2021-04-08] MEDS: metroNIDAZOLE/Normal Saline 500 MG in Premix Bag 1 BAG IV SCH ×3 (01:49→17:32)
[2021-04-08] MEDS: predniSONE 5 MG Tab PO SCH (08:02)
[2021-04-08] MEDS: Furosemide 40 MG/4 ML VIAL IVPUSH SCH (08:02)
[2021-04-08] MEDS: Aspirin 81 MG Tab.EC PO SCH (08:02)
[2021-04-08] MEDS: Benztropine 1 MG Tab PO SCH ×2 (08:02→19:31)
[2021-04-08] MEDS: Albuterol/Ipratropium 3.0-0.5 MG/3 ML Neb Soln INH SCH ×3 (08:02→19:32)
[2021-04-08 08:03] LABS: CHLORIDE,CL 105 mmol/L (98-107); SODIUM,NA 142 mmol/L (136-145)
[2021-04-08] MEDS: carBAMazepine 100 MG Cap.ER PO SCH ×2 (08:05→19:31)
--- NOTE | 2021-04-08 10:07 | PCM.PN ---
- General Info Date of Service: 04/08/21 Admission Dx/Problem (Free Text): 1. Aspiration pneumonia 2. CHF 3. COPD 4. Confusion Subjective Update: Patient denies pain or other acute problems, however he is an overall poor historian. Functional Status: Reports: Pain Controlled, Tolerating Diet (Improved oral intake with no evidence of aspiration), Ambulating (With assist), Urinating (Woodward catheter). Denies: New Symptoms, Incentive Spirometry Pain Score: 0 - Review of Systems General: Reports: Fever (37.7 degrees maximum during last 24 hours), Weakness (Stable right hemiparesis). Denies: Chills, Appetite (Improving) HEENT: Reports: No Symptoms Pulmonary: Reports: No Symptoms. Denies: Shortness of Breath, Cough Cardiovascular: Reports: No Symptoms. Denies: Edema Gastrointestinal: Reports: No Symptoms, Other (Normal bowel movement yesterday evening) Genitourinary: Reports: No Symptoms, Other (Woodward catheter) Musculoskeletal: Reports: No Symptoms. Denies: Neck Pain, Back Pain, Leg Pain Skin: Reports: No Symptoms. Denies: Diaphoresis Neurological: Reports: Confusion (Stable chronic), Difficulty Walking (Right hemiparesisstable), Weakness (Stable chronic as above) Psychiatric: Reports: Confusion (As above). Denies: Depression, Anxiety, Agitation, Cravings, Hallucinations - Patient Data Vitals - Most Recent: Last Vital Signs Temp 37.0 C 04/08/21 08:00 Pulse 80 04/08/21 08:00 Resp 16 04/08/21 08:00 BP 101/53 L 04/08/21 08:00 Pulse Ox 92 L 04/08/21 01:19 Vital Signs - 24 hr 04/07/21 04/07/21 04/07/21 12:00 16:00 19:26 Temperature [ Oral] Temperature [ 37.0 C 37.2 C 37.7 C Temporal] Pulse, 83 Peripheral [ Left Pulse Oximetry] Pulse, 82 88 Peripheral [ Right Pulse Oximetry] Respiratory 16 18 20 Rate Blood Pressure 114/60 92/55 L 102/53 L [Left Lower Arm ] O2 Sat by Pulse 91 L 91 L 90 L Oximetry 04/08/21 04/08/21 01:19 08:00 Temperature [ 37.0 C Oral] Temperature [ 37.2 C Temporal] Pulse, 79 80 Peripheral [ Left Pulse Oximetry] Pulse, Peripheral [ Right Pulse Oximetry] Respiratory 20 16 Rate Blood Pressure 105/63 101/53 L [Left Lower Arm ] O2 Sat by Pulse 92 L Oximetry Weight - Most Recent: 72.121 kg I&O - Last 24 Hours: Intake & Output 04/07/21 04/08/21 04/08/21 22:59 06:59 14:59 Intake Total 537 400 Output Total 42% 300 Balance 11B 100 @ Imaging Impressions - Last 24 Hours: Chest x-ray, portable shows moderate COPD changes and cardiomegaly with bilateral lower lobe pulmonary infiltrates and possible right-sided diaphragmatic hernia. Improved bowel gaseous pattern since last chest x-ray on 04/05 from limited view with no free air, etc. Lab Results Last 24 Hours: Laboratory Results - last 24 hr 04/08/21 04/08/21 Range/Units 07:04 07:04 WBC 6.9 (4.0-10.2) K/uL RBC 4.18 L (4.33-5.41) M/uL Hgb 13.4 (13.1-16.8) g/dL Hct 41.4 (39.0-49.0) % MCV 99.0 H (84.0-98.0) fL MCH 32.1 (28.2-33.3) pg MCHC 32.4 (31.7-36.0) g/dL RDW 13.3 (11.2-14.1) % Plt Count 165 (150-350) K/uL Neut % (Auto) 78.4 (45.0-80.0) % Lymph % (Auto) 9.8 L (10.0-50.0) % [place] % (Auto) 9.7 (2.0-14.0) % Eos % (Auto) 2.0 (0.0-5.0) % Baso % (Auto) 0.1 (0.0-2.0) % Neut # (Auto) 5.42 (1.40-7.00) K/uL Lymph # (Auto) 0.68 (0.50-3.50) K/uL [place] # (Auto) 0.67 (0.00-1.00) K/uL Eos # (Auto) 0.14 (0.00-0.50) K/uL Baso # (Auto) 0.01 (0.00-0.20) K/uL Sodium 142 (136-145) mmol/L Potassium 4.2 (3.5-5.1) mmol/L Chloride 105 (98-107) mmol/L Carbon Dioxide 29.5 (21.0-32.0) mmol/L BUN 21 H (7-18) mg/dL Creatinine 0.75 (0.51-1.17) mg/dL Est Cr Clr Drug Dosing 79.16 mL/min Estimated GFR (MDRD) > 60 mL/min Glucose 94 (70-99) mg/dL Calcium 7.8 L (8.5-10.1) mg/dL Creatine Kinase 92 (26-308) U/L Creatine Kinase Index 1.2 (0.0-2.5) % CK-MB (CK-2) 1.10 (0.00-3.60) ng/mL Troponin I 0.000 (0.000-0.056) ng/mL NT-Pro-B Natriuret Pep 94 (0-125) pg/mL Pravin Results Last 24 Hours: Microbiology 04/08/21 08:45 Gram Stain - Final Sputum - Expectorated 04/05/21 18:30 Aerobic Blood Culture - Preliminary Blood - Venous - Lab Draw NO GROWTH AFTER 2 DAYS Anaerobic Blood Culture - Preliminary NO GROWTH AFTER 2 DAYS 04/05/21 17:50 Aerobic Blood Culture - Preliminary Blood - Venous NO GROWTH AFTER 2 DAYS Anaerobic Blood Culture - Preliminary NO GROWTH AFTER 2 DAYS Med Orders - Current: Current Medications Acetaminophen (Acetaminophen 500 Mg Tab) 1,000 mg PO DAILY PRN PRN Reason: Pain Albuterol (Albuterol 0.083% 2.5 Mg/3 Ml Neb Soln) 2.5 mg INH Q2HR PRN PRN Reason: Dyspnea Albuterol/Ipratropium (Albuterol/Ipratropium 3.0-0.5 Mg/3 Ml Neb Soln) 3 ml INH Q4HR PRN PRN Reason: Shortness of Breath Albuterol/Ipratropium (Albuterol/Ipratropium 3.0-0.5 Mg/3 Ml Neb Soln) 3 ml INH TID@0800,1400,2000 [facility] Last Admin: 04/08/21 08:02 Dose: 3 ml Documented by: Aspirin (Aspirin 81 Mg Tab.Ec) 81 mg PO DAILY [facility] Last Admin: 04/08/21 08:02 Dose: 81 mg Documented by: Benztropine Mesylate (Benztropine 1 Mg Tab) 0.5 mg PO BID@ [facility] Last Admin: 04/08/21 08:02 Dose: 0.5 mg Documented by: Bisacodyl (Bisacodyl 5 Mg Tab) 5 - 15 mg PO DAILY PRN PRN Reason: Constipation Carbamazepine (Carbamazepine 100 Mg Cap.Er) 300 mg PO BID@ [facility] Last Admin: 04/08/21 08:05 Dose: 300 mg Documented by: Cyclobenzaprine HCl (Cyclobenzaprine 10 Mg Tab) 10 mg PO DAILY@1199 [facility] Last Admin: 04/07/21 11:09 Dose: 10 mg Documented by: Furosemide (Furosemide 40 Mg/4 Ml Vial) 40 mg IVPUSH DAILY [facility] Last Admin: 04/08/21 08:02 Dose: 40 mg Documented by: Ampicillin Sodium/Sulbactam (Sodium 1.5 gm/ Sodium Chloride) 100 mls @ 200 mls/hr IV Q6H [facility] Last Admin: 04/08/21 08:01 Dose: 200 mls/hr Documented by: Metronidazole 500 mg/ Premix 100 mls @ 100 mls/hr IV Q8H [facility] Last Admin: 04/08/21 01:49 Dose: 100 mls/hr Documented by: Lactulose (Lactulose Soln 10 Gm/15 Ml 30 Ml Ud Cup) 10 gm PO Q48H [facility] Last Admin: 04/07/21 20:35 Dose: 10 gm Documented by: Phenytoin Sodium (Phenytoin 100 Mg Cap.Er) 300 mg PO BEDTIME [facility] Last Admin: 04/07/21 19:28 Dose: 300 mg Documented by: Polyethylene Glycol (Polyethylene Glycol 3350 Powder 17 Gm Packet) 17 gm PO DAILY@12 [facility] Last Admin: 04/07/21 11:10 Dose: 17 gm Documented by: Potassium Chloride (Potassium Chloride 20 Meq Tab.Er) 20 meq PO DAILY@1200 [facility] Last Admin: 04/07/21 11:09 Dose: 20 meq Documented by: Prednisone (Prednisone 5 Mg Tab) 5 mg PO WITHBREAKFAST [facility] Last Admin: 04/08/21 08:02 Dose: 5 mg Documented by: Senna/Docusate Sodium (Docusate Sodium/Sennosides 50-8.6 Mg Tab) 1 tab PO BID@ [facility] Last Admin: 04/08/21 08:02 Dose: 1 tab Documented by: Simvastatin (Simvastatin 20 Mg Tab) 40 mg PO BEDTIME [facility] Last Admin: 04/07/21 19:28 Dose: 40 mg Documented by: Sodium Chloride (Sodium Chloride 0.9% 10 Ml Syringe) 10 ml FLUSH ASDIRECTED PRN PRN Reason: Keep Vein Open Last Admin: 04/08/21 01:17 Dose: 10 ml Documented by: Zinc Acetate/Diphenhydramine (Diphenhydramine/Zinc Acetate 2% Crm 28.4 Gm Tube) 0 gm TOP Q4HR PRN PRN Reason: Itching Discontinued Medications Albuterol/Ipratropium (Albuterol/Ipratropium 3.0-0.5 Mg/3 Ml Neb Soln) 3 ml INH TID [facility] Albuterol/Ipratropium (Albuterol/Ipratropium 3.0-0.5 Mg/3 Ml Neb Soln) 3 ml INH TID [facility] Last Admin: 04/06/21 09:03 Dose: 3 ml Documented by: Benztropine Mesylate (Benztropine 1 Mg Tab) 0.5 mg PO BID@ [facility] Furosemide (Furosemide 20 Mg Tab) 40 mg PO 0800 [facility] Ampicillin Sodium/Sulbactam (Sodium 3 gm/ Sodium Chloride) 100 mls @ 100 mls/hr IV ONETIME ONE Stop: 04/05/21 19:19 Last Admin: 04/05/21 19:22 Dose: 100 mls/hr Documented by: Ampicillin Sodium/Sulbactam (Sodium 1.5 gm/ Sodium Chloride) 100 mls @ 100 mls/hr IV Q6H [facility] Last Admin: 04/07/21 07:17 Dose: 100 mls/hr Documented by: Sodium Chloride (Normal Saline) 1,000 mls @ 75 mls/hr IV ASDIRECTED [facility] Last Admin: 04/05/21 22:34 Dose: 75 mls/hr Documented by: Lactulose (Lactulose Soln 10 Gm/15 Ml 30 Ml Ud Cup) 10 gm PO ONETIME ONE Stop: 04/05/21 22:16 Last Admin: 04/05/21 22:34 Dose: 10 gm Documented by: Phenytoin Sodium (Phenytoin 100 Mg Cap.Er) 300 mg PO BEDTIME [facility] Senna/Docusate Sodium (Docusate Sodium/Sennosides 50-8.6 Mg Tab) 1 tab PO BID@0 800,2000 [facility] - Exam Quality Assessment: Supplemental Oxygen (3 L/min by nasal cannula with O2 sats between 90-92%), Urine Catheter (To be DC'd later today), DVT Prophylaxis. No: Central Line/PICC, Skin Breakdown, Restraints Urinary Catheter Total Time: 2Days 13Hours General: Alert, Cooperative, No Acute Distress, Other (Stable moderate confusion) HEENT: Pupils Equal, Pupils Reactive, Mucous Membr. Moist/[place], Other (No vertigo or nystagmus). No: Scleral Icterus Neck: Supple, Trachea Midline, No JVD, No Thyromegaly. No: Lymphadenopathy Lungs: Normal Respiratory Effort, Rales (Mild bilateral basilar). No: Rhonchi, Rub, Wheezing Cardiovascular: Regular Rate, Regular Rhythm, No Murmurs. No: Gallops, Rubs GI/Abdominal Exam: Normal Bowel Sounds, Soft, Non-Tender, No Organomegaly, No Distention, No Abnormal Bruit, No Mass, Other (Obese). No: Guarding (Male) Exam: Deferred Back Exam: Normal Inspection, Full Range of Motion. No: CVA Tenderness (L), CVA Tenderness (R), Muscle Spasm, Paraspinal Tenderness Extremities: Normal Range of Motion, Non-Tender, No Pedal Edema, Other (Old abrasion over the right patella with additional right elbow ecchymosis from minor fall prior to admission.). No: Pedal Edema, Therese's Sign Peripheral Pulses: 2+: Radial (L), Radial (R), Dorsalis Pedis (L), Dorsalis Pedis (R) Skin: Warm, Dry, Ecchymosis (As above) Wound/Incisions: Healing Well Neurological: No New Focal Deficit, Other (Stable spastic right-sided hemiparesis) Psy/Mental Status: Alert, Normal Affect, Normal Mood. No: Depressed, Hallucinations, Withdrawal Symptoms #1 Interpretation EKG Date: 04/08/21 Time: 07:48 Rhythm: NSR Rate (Beats/Min): 83 [place]: Normal (Left) P-Wave: Present QRS: Normal (0.09 seconds) ST-T: Normal QT: Normal [place]/PQ Interval: 0.14 seconds representing mildly progressive borderline short [place] interval with no delta waves noted. Poor R wave progression in the anterior leads. Comparison: Change From Previous EKG (As above since 04/06/2021) EKG Interpretation Comments: 1. No acute ischemic changes 2. Short [place] interval - Patient Data Lab Results Last 24 hrs: Laboratory Results - last 24 hr 04/08/21 04/08/21 Range/Units 07:04 07:04 WBC 6.9 (4.0-10.2) K/uL RBC 4.18 L (4.33-5.41) M/uL Hgb 13.4 (13.1-16.8) g/dL Hct 41.4 (39.0-49.0) % MCV 99.0 H (84.0-98.0) fL MCH 32.1 (28.2-33.3) pg MCHC 32.4 (31.7-36.0) g/dL RDW 13.3 (11.2-14.1) % Plt Count 165 (150-350) K/uL Neut % (Auto) 78.4 (45.0-80.0) % Lymph % (Auto) 9.8 L (10.0-50.0) % [place] % (Auto) 9.7 (2.0-14.0) % Eos % (Auto) 2.0 (0.0-5.0) % Baso % (Auto) 0.1 (0.0-2.0) % Neut # (Auto) 5.42 (1.40-7.00) K/uL Lymph # (Auto) 0.68 (0.50-3.50) K/uL [place] # (Auto) 0.67 (0.00-1.00) K/uL Eos # (Auto) 0.14 (0.00-0.50) K/uL Baso # (Auto) 0.01 (0.00-0.20) K/uL Sodium 142 (136-145) mmol/L Potassium 4.2 (3.5-5.1) mmol/L Chloride 105 (98-107) mmol/L Carbon Dioxide 29.5 (21.0-32.0) mmol/L BUN 21 H (7-18) mg/dL Creatinine 0.75 (0.51-1.17) mg/dL Est Cr Clr Drug Dosing 79.16 mL/min Estimated GFR (MDRD) > 60 mL/min Glucose 94 (70-99) mg/dL Calcium 7.8 L (8.5-10.1) mg/dL Creatine Kinase 92 (26-308) U/L Creatine Kinase Index 1.2 (0.0-2.5) % CK-MB (CK-2) 1.10 (0.00-3.60) ng/mL Troponin I 0.000 (0.000-0.056) ng/mL NT-Pro-B Natriuret Pep 94 (0-125) pg/mL Result Diagrams: 04/08/21 07:04 04/08/21 07:04 Pravin Results Last 24 hrs: Microbiology 04/08/21 08:45 Gram Stain - Final Sputum - Expectorated 04/05/21 18:30 Aerobic Blood Culture - Preliminary Blood - Venous - Lab Draw NO GROWTH AFTER 2 DAYS Anaerobic Blood Culture - Preliminary NO GROWTH AFTER 2 DAYS 04/05/21 17:50 Aerobic Blood Culture - Preliminary Blood - Venous NO GROWTH AFTER 2 DAYS Anaerobic Blood Culture - Preliminary NO GROWTH AFTER 2 DAYS Sepsis Event Note - Evaluation Sepsis Screening Result: No Definite Risk - Focused Exam Vital Signs: Vital Signs Temp Temp Pulse Resp BP Pulse Ox 04/08/21 08:00 37.0 C 80 16 101/53 L 04/08/21 01:19 37.2 C 79 20 105/63 92 L - Problem List & Annotations (1) Pneumonia, aspiration SNOMED Code(s): 066753407 Code(s): J69.0 - PNEUMONITIS DUE TO INHALATION OF FOOD AND VOMIT Status: Acute Priority: High Current Visit: Yes Onset Date: ~04/05/21 Qualifiers: Aspiration pneumonia type: unspecified Laterality: bilateral Lung location: lower lobe of lung Qualified Code(s): J69.0 - Pneumonitis due to inh alation of food and vomit Annotation/Comment:: Likely aspiration pneumonia. Continue Unasyn. Additional IV Flagyl therapy initiated on 04/07. Note somewhat refractory pneumonia with fever on 04/07 and planned transfer back to [facility] in [place] delayed for now. Attempt to obtain a sputum for culture and sensitivity. Previous leukocytosis resolved on 04/06. Possible prolonged acute care stay secondary to refractory aspiration pneumonia. (2) COPD (chronic obstructive pulmonary disease) SNOMED Code(s): 83022664 Code(s): J44.9 - CHRONIC OBSTRUCTIVE PULMONARY DISEASE, UNSPECIFIED Status: Chronic Priority: Medium Current Visit: Yes Qualifiers: COPD type: COPD with acute lower respiratory infection Qualified Code(s): J44.0 - Chronic obstructive pulmonary disease with (acute) lower respiratory infection Annotation/Comment:: Note aspiration pneumonia as above. Attempt incentive spirometry, however may be difficult secondary to patient's mental status, etc.. Note steroid-dependent COPD. (3) Need for comfort care SNOMED Code(s): 862263342, 589463066 Code(s): YSN3735 - Status: Chronic Priority: Medium Current Visit: Yes Annotation/Comment:: Prognosis guarded secondary to multiple healthcare issues as per emergency room note and as above/below. CODE STATUS confirmed from senior care records and by [facility] physician on admission. (4) Hypoalbuminemia SNOMED Code(s): 646038349 Code(s): E88.09 - OTH DISORDERS OF PLASMA-PROTEIN METABOLISM, NEC Status: Chronic Priority: Medium Current Visit: Yes Annotation/Comment:: Observe for now (5) Hypocalcemia SNOMED Code(s): 0015824 Code(s): E83.51 - HYPOCALCEMIA Status: Chronic Priority: Medium Current Visit: Yes Annotation/Comment:: Observe for now (6) GERD (gastroesophageal reflux disease) SNOMED Code(s): 299431315 Code(s): K21.9 - GASTRO-ESOPHAGEAL REFLUX DISEASE WITHOUT ESOPHAGITIS Status: Chronic Priority: Medium Current Visit: Yes Qualifiers: Esophagitis presence: esophagitis presence not specified Qualified Code(s): K21.9 - Gastro-esophageal reflux disease without esophagitis Annotation/Comment:: No recent or current complaints. Continue to observe closely. 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 (8) Alcoholic dementia SNOMED Code(s): 929880 Code(s): F10.27 - ALCOHOL DEPENDENCE WITH ALCOHOL-INDUCED PERSISTING DEMENTIA Status: Chronic Priority: Medium Current Visit: Yes Qualifiers: Dementia behavioral disturbance: without behavioral disturbance Qualified Code(s): F10.27 - Alcohol dependence with alcohol-induced persisting dementia Annotation/Comment:: Increased confusion noted per [facility] staff prior to admission likely secondary to his aspiration pneumonia. Patient appears to be back to his normal baseline status on 04/07. 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 No evidence of DTs, etc. during this hospitalization. (9) Dysphagia as late effect of cerebrovascular accident (CVA) SNOMED Code(s): 459603070 Code(s): I69.391 - DYSPHAGIA FOLLOWING CEREBRAL INFARCTION Status: Chronic Priority: High Current Visit: Yes Annotation/Comment:: Note recurrent aspiration pneumonia. Patient refused aspiration diet including thickened liquids, etc. Strict aspiration precautions initiated on 04/07 (10) CHF (congestive heart failure) SNOMED Code(s): 62686893 Code(s): I50.9 - HEART FAILURE, UNSPECIFIED Status: Acute Current Visit: Yes Qualifiers: Heart failure type: unspecified Heart failure chronicity: acute on chronic Qualified Code(s): I50.9 - Heart failure, unspecified Annotation/Comment:: BNP normalized on 04/08 with normal cardiac enzymes and no evidence of acute ischemia by serial EKGs. No chest pain or anginal type symptoms. Adjust oral Lasix therapy at time of discharge. Continue IV Lasix therapy for now. Note comfort care with no further echocardiogram, etc. (11) Shortened [place] interval SNOMED Code(s): 55204002 Code(s): R94.31 - ABNORMAL ELECTROCARDIOGRAM [ECG] [EKG] Status: Acute Priority: Medium Current Visit: Yes Onset Date: 04/08/21 Annotation/Comment:: Observe for now - Problem List Review Problem List Initiated/Reviewed/Updated: Yes - My Orders Last 24 Hours: My Active Orders 04/07/21 09:59 Comfort Measures [OM.PC] Routine 04/07/21 10:00 metroNIDAZOLE/Normal Saline [Flagyl in NS 500 MG/100 ML] 500 mg Premix Bag 1 bag IV Q8H 04/07/21 Lunch Fluid Restriction [DIET] 04/07/21 20:41 Renew/Continue Urinary Catheter [OM.PC] Routine 04/08/21 05:11 EKG Documentation Completion [RC] ASDIRECTED Chest 1V Frontal [CR] Routine 04/08/21 08:45 CULTURE SPUTUM + SMEAR [RM] Routine - Assessment Assessment:: as above. - Plan Plan:: As above. Extensive precautions were given to the patient, who is in agreement with the treatment plan. The patient will require about 1-2 days of inpatient/acute care secondary to multiple health problems as above.
[2021-04-08] MEDS: Potassium Chloride 20 MEQ Tab.ER PO SCH (12:18)
[2021-04-08] MEDS: Cyclobenzaprine 10 MG Tab PO SCH (12:18)
[2021-04-08] MEDS: Polyethylene Glycol 3350 Powder 17 GM Packet PO SCH (12:18)
[2021-04-08] MEDS: Phenytoin 100 MG Cap.ER PO SCH (19:31)
[2021-04-08] MEDS: Simvastatin 20 MG Tab PO SCH (19:31)
[2021-04-09] MEDS: Ampicillin/Sulbactam Na 1.5 GM in Sodium Chloride 0.9% 100 ML IV SCH ×4 (01:21→19:47)
[2021-04-09] MEDS: metroNIDAZOLE/Normal Saline 500 MG in Premix Bag 1 BAG IV SCH ×3 (01:58→17:24)
[2021-04-09] MEDS: Benztropine 1 MG Tab PO SCH ×2 (07:28→19:46)
[2021-04-09] MEDS: Albuterol/Ipratropium 3.0-0.5 MG/3 ML Neb Soln INH SCH ×3 (07:28→19:47)
[2021-04-09] MEDS: predniSONE 5 MG Tab PO SCH (07:29)
[2021-04-09] MEDS: Aspirin 81 MG Tab.EC PO SCH (07:29)
[2021-04-09] MEDS: carBAMazepine 100 MG Cap.ER PO SCH ×2 (07:30→21:17)
[2021-04-09] MEDS: Sodium Chloride 0.9% 10 ML Syringe FLUSH PRN (07:31)
--- NOTE | 2021-04-09 07:59 | PCM.PN ---
- General Info Date of Service: 04/09/21 Admission Dx/Problem (Free Text): 1. Aspiration pneumonia 2. CHF 3. COPD 4. Confusion Subjective Update: Patient denies pain or other acute problems, however he is an overall poor historian. Functional Status: Reports: Pain Controlled, Tolerating Diet, Ambulating (With assist), Urinating (Woodward catheter discontinued), Incentive Spirometry. Denies: New Symptoms Pain Score: 0 - Review of Systems General: Reports: Weakness (Stable right-sided spastic hemiparesis). Denies: Fever, Fatigue, Malaise, Chills, Night Sweats, Appetite (Improved with no aspiration) HEENT: Reports: Glasses Pulmonary: Reports: No Symptoms. Denies: Shortness of Breath, Cough, Wheezing Cardiovascular: Reports: No Symptoms. Denies: Chest Pain, Edema Gastrointestinal: Reports: No Symptoms, Other (Excellent bowel movement yesterday evening per nurses and patient). Denies: Abdominal Pain, Diarrhea, Nausea, Vomiting Genitourinary: Reports: No Symptoms Musculoskeletal: Reports: No Symptoms Skin: Reports: Other (Stable right elbow ecchymosis and right patellar abrasion) Neurological: Reports: Confusion (Stable organic brain syndrome), Pre-Existing Deficit (Stable right-sided moderate to severe spastic hemiparesis), Difficulty Walking Psychiatric: Reports: Confusion (As above). Denies: Depression, Anxiety, Agitation, Cravings, Hallucinations - Patient Data Vitals - Most Recent: Last Vital Signs Temp 36.6 C 04/09/21 02:00 Pulse 74 04/09/21 02:00 Resp 18 04/09/21 02:00 BP 104/54 L 04/09/21 02:00 Pulse Ox 92 L 04/09/21 02:00 Vital Signs - 24 hr 04/08/21 04/08/21 04/08/21 08:00 14:00 19:27 Temperature [ 37.0 C Oral] Temperature [ 36.6 C 37.0 C Temporal] Pulse, 80 76 78 Peripheral [ Left Pulse Oximetry] Respiratory 16 22 H 20 Rate Blood Pressure 101/53 L 108/64 103/49 L [Left Lower Arm ] O2 Sat by Pulse 93 L 91 L Oximetry 04/09/21 02:00 Temperature [ Oral] Temperature [ 36.6 C Temporal] Pulse, 74 Peripheral [ Left Pulse Oximetry] Respiratory 18 Rate Blood Pressure 104/54 L [Left Lower Arm ] O2 Sat by Pulse 92 L Oximetry Weight - Most Recent: 72.121 kg I&O - Last 24 Hours: Intake & Output 04/08/21 04/09/21 04/09/21 22:59 06:59 14:59 Intake Total 940 300 Output Total 900 Balance 40 300 Imaging Impressions - Last 24 Hours: None Lab Results Last 24 Hours: Laboratory Results - last 24 hr 04/08/21 04/09/21 Range/Units 07:04 07:10 WBC 6.2 (4.0-10.2) K/uL RBC 4.30 L (4.33-5.41) M/uL Hgb 13.8 (13.1-16.8) g/dL Hct 42.5 (39.0-49.0) % MCV 98.8 H (84.0-98.0) fL MCH 32.1 (28.2-33.3) pg MCHC 32.5 (31.7-36.0) g/dL RDW 13.4 (11.2-14.1) % Plt Count 183 (150-350) K/uL Neut % (Auto) 75.0 (45.0-80.0) % Lymph % (Auto) 10.9 (10.0-50.0) % Dubois % (Auto) 10.9 (2.0-14.0) % Eos % (Auto) 3.0 (0.0-5.0) % Baso % (Auto) 0.2 (0.0-2.0) % Neut # (Auto) 4.68 (1.40-7.00) K/uL Lymph # (Auto) 0.68 (0.50-3.50) K/uL Dubois # (Auto) 0.68 (0.00-1.00) K/uL Eos # (Auto) 0.19 (0.00-0.50) K/uL Baso # (Auto) 0.01 (0.00-0.20) K/uL Sodium 142 (136-145) mmol/L Potassium 4.2 (3.5-5.1) mmol/L Chloride 105 (98-107) mmol/L Carbon Dioxide 29.5 (21.0-32.0) mmol/L BUN 21 H (7-18) mg/dL Creatinine 0.75 (0.51-1.17) mg/dL Est Cr Clr Drug Dosing 79.16 mL/min Estimated GFR (MDRD) > 60 mL/min Glucose 94 (70-99) mg/dL Calcium 7.8 L (8.5-10.1) mg/dL Creatine Kinase 92 (26-308) U/L Creatine Kinase Index 1.2 (0.0-2.5) % CK-MB (CK-2) 1.10 (0.00-3.60) ng/mL Troponin I 0.000 (0.000-0.056) ng/mL NT-Pro-B Natriuret Pep 94 (0-125) pg/mL Laboratory Results - last 24 hr 04/09/21 04/09/21 Range/Units 07:10 07:10 WBC 6.2 (4.0-10.2) K/uL RBC 4.30 L (4.33-5.41) M/uL Hgb 13.8 (13.1-16.8) g/dL Hct 42.5 (39.0-49.0) % MCV 98.8 H (84.0-98.0) fL MCH 32.1 (28.2-33.3) pg MCHC 32.5 (31.7-36.0) g/dL RDW 13.4 (11.2-14.1) % Plt Count 183 (150-350) K/uL Neut % (Auto) 75.0 (45.0-80.0) % Lymph % (Auto) 10.9 (10.0-50.0) % Dubois % (Auto) 10.9 (2.0-14.0) % Eos % (Auto) 3.0 (0.0-5.0) % Baso % (Auto) 0.2 (0.0-2.0) % Neut # (Auto) 4.68 (1.40-7.00) K/uL Lymph # (Auto) 0.68 (0.50-3.50) K/uL Dubois # (Auto) 0.68 (0.00-1.00) K/uL Eos # (Auto) 0.19 (0.00-0.50) K/uL Baso # (Auto) 0.01 (0.00-0.20) K/uL Sodium 143 (136-145) mmol/L Potassium 4.2 (3.5-5.1) mmol/L Chloride 106 (98-107) mmol/L Carbon Dioxide 31.2 (21.0-32.0) mmol/L BUN 20 H (7-18) mg/dL Creatinine 0.72 (0.51-1.17) mg/dL Est Cr Clr Drug Dosing 82.46 mL/min Estimated GFR (MDRD) > 60 mL/min Glucose 92 (70-99) mg/dL Calcium 8.0 L (8.5-10.1) mg/dL Pravin Results Last 24 Hours: Microbiology 04/05/21 18:30 Aerobic Blood Culture - Preliminary Blood - Venous - Lab Draw NO GROWTH AFTER 3 DAYS Anaerobic Blood Culture - Preliminary NO GROWTH AFTER 3 DAYS 04/05/21 17:50 Aerobic Blood Culture - Preliminary Blood - Venous NO GROWTH AFTER 3 DAYS Anaerobic Blood Culture - Preliminary NO GROWTH AFTER 3 DAYS 04/08/21 08:45 Gram Stain - Final Sputum - Expectorated Med Orders - Current: Current Medications Acetaminophen (Acetaminophen 500 Mg Tab) 1,000 mg PO DAILY PRN PRN Reason: Pain Albuterol (Albuterol 0.083% 2.5 Mg/3 Ml Neb Soln) 2.5 mg INH Q2HR PRN PRN Reason: Dyspnea Albuterol/Ipratropium (Albuterol/Ipratropium 3.0-0.5 Mg/3 Ml Neb Soln) 3 ml INH Q4HR PRN PRN Reason: Shortness of Breath Albuterol/Ipratropium (Albuterol/Ipratropium 3.0-0.5 Mg/3 Ml Neb Soln) 3 ml INH TID@0800,1399,1999 [facility] Last Admin: 04/09/21 07:28 Dose: 3 ml Documented by: Aspirin (Aspirin 81 Mg Tab.Ec) 81 mg PO DAILY [facility] Last Admin: 04/09/21 07:29 Dose: 81 mg Documented by: Benztropine Mesylate (Benztropine 1 Mg Tab) 0.5 mg PO BID@799,1999 [facility] Last Admin: 04/09/21 07:28 Dose: 0.5 mg Documented by: Bisacodyl (Bisacodyl 5 Mg Tab) 5 - 15 mg PO DAILY PRN PRN Reason: Constipation Carbamazepine (Carbamazepine 100 Mg Cap.Er) 300 mg PO BID@ [facility] Last Admin: 04/09/21 07:30 Dose: 300 mg Documented by: Cyclobenzaprine HCl (Cyclobenzaprine 10 Mg Tab) 10 mg PO DAILY@1200 [facility] Last Admin: 04/08/21 12:18 Dose: 10 mg Documented by: Furosemide (Furosemide 40 Mg/4 Ml Vial) 40 mg IVPUSH DAILY [facility] Last Admin: 04/08/21 08:02 Dose: 40 mg Documented by: Ampicillin Sodium/Sulbactam (Sodium 1.5 gm/ Sodium Chloride) 100 mls @ 200 mls/hr IV Q6H [facility] Last Admin: 04/09/21 07:27 Dose: 200 mls/hr Documented by: Metronidazole 500 mg/ Premix 100 mls @ 100 mls/hr IV Q8H [facility] Last Admin: 04/09/21 01:58 Dose: 100 mls/hr Documented by: Lactulose (Lactulose Soln 10 Gm/15 Ml 30 Ml Ud Cup) 10 gm PO Q48H [facility] Last Admin: 04/07/21 20:35 Dose: 10 gm Documented by: Phenytoin Sodium (Phenytoin 100 Mg Cap.Er) 300 mg PO BEDTIME [facility] Last Admin: 04/08/21 19:31 Dose: 300 mg Documented by: Polyethylene Glycol (Polyethylene Glycol 3350 Powder 17 Gm Packet) 17 gm PO DAILY@12 [facility] Last Admin: 04/08/21 12:18 Dose: 17 gm Documented by: Potassium Chloride (Potassium Chloride 20 Meq Tab.Er) 20 meq PO DAILY@1200 [facility] Last Admin: 04/08/21 12:18 Dose: 20 meq Documented by: Prednisone (Prednisone 5 Mg Tab) 5 mg PO WITHBREAKFAST [facility] Last Admin: 04/09/21 07:29 Dose: 5 mg Documented by: Senna/Docusate Sodium (Docusate Sodium/Sennosides 50-8.6 Mg Tab) 1 tab PO BID@ [facility] Last Admin: 04/09/21 07:29 Dose: 1 tab Documented by: Simvastatin (Simvastatin 20 Mg Tab) 40 mg PO BEDTIME [facility] Last Admin: 04/08/21 19:31 Dose: 40 mg Documented by: Sodium Chloride (Sodium Chloride 0.9% 10 Ml Syringe) 10 ml FLUSH ASDIRECTED PRN PRN Reason: Keep Vein Open Last Admin: 04/09/21 07:31 Dose: 10 ml Documented by: Zinc Acetate/Diphenhydramine (Diphenhydramine/Zinc Acetate 2% Crm 28.4 Gm Tube) 0 gm TOP Q4HR PRN PRN Reason: Itching Discontinued Medications Albuterol/Ipratropium (Albuterol/Ipratropium 3.0-0.5 Mg/3 Ml Neb Soln) 3 ml INH TID NKECHI Albuterol/Ipratropium (Albuterol/Ipratropium 3.0-0.5 Mg/3 Ml Neb Soln) 3 ml INH TID [facility] Last Admin: 04/06/21 09:03 Dose: 3 ml Documented by: Benztropine Mesylate (Benztropine 1 Mg Tab) 0.5 mg PO BID@799,1999 [facility] Furosemide (Furosemide 20 Mg Tab) 40 mg PO 0800 [facility] Ampicillin Sodium/Sulbactam (Sodium 3 gm/ Sodium Chloride) 100 mls @ 100 mls/hr IV ONETIME ONE Stop: 04/05/21 19:19 Last Admin: 04/05/21 19:22 Dose: 100 mls/hr Documented by: Ampicillin Sodium/Sulbactam (Sodium 1.5 gm/ Sodium Chloride) 100 mls @ 100 mls/hr IV Q6H [facility] Last Admin: 04/07/21 07:17 Dose: 100 mls/hr Documented by: Sodium Chloride (Normal Saline) 1,000 mls @ 75 mls/hr IV ASDIRECTED [facility] Last Admin: 04/05/21 22:34 Dose: 75 mls/hr Documented by: Lactulose (Lactulose Soln 10 Gm/15 Ml 30 Ml Ud Cup) 10 gm PO ONETIME ONE Stop: 04/05/21 22:16 Last Admin: 04/05/21 22:34 Dose: 10 gm Documented by: Phenytoin Sodium (Phenytoin 100 Mg Cap.Er) 300 mg PO BEDTIME [facility] Senna/Docusate Sodium (Docusate Sodium/Sennosides 50-8.6 Mg Tab) 1 tab PO BID@0800,1999 [facility] - Exam Quality Assessment: Supplemental Oxygen (Baseline 3 L/min by nasal cannula with O2 sats of 91-93%), DVT Prophylaxis. No: Central Line/PICC, Urine Catheter, Skin Breakdown, Restraints Urinary Catheter Total Time: 2Days 15Hours General: Alert, Cooperative, No Acute Distress, Other (Stable moderate organic brain syndrome) HEENT: Pupils Equal, Pupils Reactive, EOMI, Mucous Membr. Moist/[place], Other (Patient is wearing glasses no vertigo or nystagmus). No: Scleral Icterus Neck: Supple, Trachea Midline, No JVD, No Thyromegaly. No: Lymphadenopathy Lungs: Normal Respiratory Effort, Rales (Persistent mild to moderate bilateral basilar). No: Rhonchi, Rub, Wheezing Cardiovascular: Regular Rate, Regular Rhythm, No Murmurs. No: Gallops, Rubs GI/Abdominal Exam: Normal Bowel Sounds, Soft, Non-Tender, No Organomegaly, No Distention, No Abnormal Bruit, No Mass, Pelvis Stable. No: Guarding (Male) Exam: Deferred Back Exam: Normal Inspection, Full Range of Motion. No: CVA Tenderness (L), CVA Tenderness (R), Muscle Spasm Extremities: Non-Tender, No Pedal Edema, Normal Capillary Refill, Pedal Edema, Limited Range of Motion (Stable secondary to right hemiparesis), Other (Slowly improving right patellar abrasion and right elbow ecchymosis with no significant local injury from previous minor fall prior to admission). No: Therese's Sign Peripheral Pulses: 2+: Radial (L), Radial (R), Posterior Tibial (L), Posterior Tibial (R) Skin: Ecchymosis (As above), Other (As above) Wound/Incisions: Healing Well Neurological: No New Focal Deficit, Other (Stable moderate to severe spastic right-sided hemiparesis) Psy/Mental Status: Alert, Normal Affect, Normal Mood. No: Agitated, Hallucinations, Withdrawal Symptoms - Patient Data Lab Results Last 24 hrs: Laboratory Results - last 24 hr 04/08/21 04/09/21 Range/Units 07:04 07:10 WBC 6.2 (4.0-10.2) K/uL RBC 4.30 L (4.33-5.41) M/uL Hgb 13.8 (13.1-16.8) g/dL Hct 42.5 (39.0-49.0) % MCV 98.8 H (84.0-98.0) fL MCH 32.1 (28.2-33.3) pg MCHC 32.5 (31.7-36.0) g/dL RDW 13.4 (11.2-14.1) % Plt Count 183 (150-350) K/uL Neut % (Auto) 75.0 (45.0-80.0) % Lymph % (Auto) 10.9 (10.0-50.0) % Dubois % (Auto) 10.9 (2.0-14.0) % Eos % (Auto) 3.0 (0.0-5.0) % Baso % (Auto) 0.2 (0.0-2.0) % Neut # (Auto) 4.68 (1.40-7.00) K/uL Lymph # (Auto) 0.68 (0.50-3.50) K/uL Dubois # (Auto) 0.68 (0.00-1.00) K/uL Eos # (Auto) 0.19 (0.00-0.50) K/uL Baso # (Auto) 0.01 (0.00-0.20) K/uL Sodium 142 (136-145) mmol/L Potassium 4.2 (3.5-5.1) mmol/L Chloride 105 (98-107) mmol/L Carbon Dioxide 29.5 (21.0-32.0) mmol/L BUN 21 H (7-18) mg/dL Creatinine 0.75 (0.51-1.17) mg/dL Est Cr Clr Drug Dosing 79.16 mL/min Estimated GFR (MDRD) > 60 mL/min Glucose 94 (70-99) mg/dL Calcium 7.8 L (8.5-10.1) mg/dL Creatine Kinase 92 (26-308) U/L Creatine Kinase Index 1.2 (0.0-2.5) % CK-MB (CK-2) 1.10 (0.00-3.60) ng/mL Troponin I 0.000 (0.000-0.056) ng/mL NT-Pro-B Natriuret Pep 94 (0-125) pg/mL Result Diagrams: 04/09/21 07:10 04/09/21 07:10 Pravin Results Last 24 hrs: Microbiology 04/05/21 18:30 Aerobic Blood Culture - Preliminary Blood - Venous - Lab Draw NO GROWTH AFTER 3 DAYS Anaerobic Blood Culture - Preliminary NO GROWTH AFTER 3 DAYS 04/05/21 17:50 Aerobic Blood Culture - Preliminary Blood - Venous NO GROWTH AFTER 3 DAYS Anaerobic Blood Culture - Preliminary NO GROWTH AFTER 3 DAYS 04/08/21 08:45 Gram Stain - Final Sputum - Expectorated Sepsis Event Note - Evaluation Sepsis Screening Result: No Definite Risk - Focused Exam Vital Signs: Vital Signs Temp Pulse Resp BP Pulse Ox 04/09/21 02:00 36.6 C 74 18 104/54 L 92 L - Problem List & Annotations (1) Pneumonia, aspiration SNOMED Code(s): 595707304 Code(s): J69.0 - PNEUMONITIS DUE TO INHALATION OF FOOD AND VOMIT Status: Acute Priority: High Current Visit: Yes Onset Date: ~04/05/21 Qualifiers: Aspiration pneumonia type: unspecified Laterality: bilateral Lung location: lower lobe of lung Qualified Code(s): J69.0 - Pneumonitis due to inhalation of food and vomit Annotation/Comment:: Repeat blood work and acute abdominal x-rays in the a.m. with [facility] physician assuming care later today. Likely aspiration pneumonia prior to admission with no reoccurrence during this hospitalization. Continue Unasyn, which was initiated on admission. Additional IV Flagyl therapy initiated on 04/07. Note somewhat refractory pneumonia with fever on 04/07 and planned transfer back to [facility] in [place] delayed for now. Sputum for culture and sensitivity obtained with final results pending however evidence of gram-positive rods in chains from Gram stain. Previous leukocytosis resolved on 04/06. Possible prolonged acute care stay secondary to refractory aspiration pneumonia, although possible [facility] tomorrow on Augmentin and oral Flagyl. (2) COPD (chronic obstructive pulmonary disease) SNOMED Code(s): 87996908 Code(s): J44.9 - CHRONIC OBSTRUCTIVE PULMONARY DISEASE, UNSPECIFIED Status: Chronic Priority: Medium Current Visit: Yes Qualifiers: COPD type: COPD with acute lower respiratory infection Qualified Code(s): J44.0 - Chronic obstructive pulmonary disease with (acute) lower respiratory infection Annotation/Comment:: Note aspiration pneumonia as above. Attempt incentive spirometry, however may be difficult secondary to patient's mental status, etc.. Note steroid-dependent COPD. (3) Need for comfort care SNOMED Code(s): 198771614, 888904724 Code(s): XBK1771 - Status: Chronic Priority: Medium Current Visit: Yes Annotation/Comment:: Prognosis guarded secondary to multiple healthcare issues as per emergency room note and as above/below. CODE STATUS confirmed from [facility] records and by [facility] physician on admission. (4) Hypoalbuminemia SNOMED Code(s): 804960441 Code(s): E88.09 - [facility] DISORDERS OF PLASMA-PROTEIN METABOLISM, NEC Status: Chronic Priority: Medium Current Visit: Yes Annotation/Comment:: Observe for now (5) Hypocalcemia SNOMED Code(s): 1005204 Code(s): E83.51 - HYPOCALCEMIA Status: Chronic Priority: Medium Current Visit: Yes Annotation/Comment:: Observe for now with medications adjusted during this hospitalization. Close follow-up by regular providers after discharge. (6) GERD (gastroesophageal reflux disease) SNOMED Code(s): 683349623 Code(s): K21.9 - GASTRO-ESOPHAGEAL REFLUX DISEASE WITHOUT ESOPHAGITIS Status: Chronic Priority: Medium Current Visit: Yes Qualifiers: Esophagitis presence: esophagitis presence not specified Qualified Code(s): K21.9 - Gastro-esophageal reflux disease without esophagitis Annotation/Comment:: No recent or current complaints. Continue to observe closely. (7) Hemiparesis affecting right side as late effect of stroke SNOMED Code(s): 632706970, 216202753 Code(s): I69.351 - HEMIPLGA FOLLOWING CEREBRAL INFRC AFF RIGHT DOMINANT SIDE Status: Chronic Priority: Medium Current Visit: Yes Annotation/Comment:: Stable with no change in his neurological status either prior to admission or during this hospitalization. (8) Alcoholic dementia SNOMED Code(s): 005570 Code(s): F10.27 - ALCOHOL DEPENDENCE WITH ALCOHOL-INDUCED PERSISTING DEMENTIA Status: Chronic Priority: Medium Current Visit: Yes Qualifiers: Dementia behavioral disturbance: without behavioral disturbance Qualified Code(s): F10.27 - Alcohol dependence with alcohol-induced persisting dementia Annotation/Comment:: Increased confusion noted per [facility] staff prior to admission likely secondary to his aspiration pneumonia. Patient appears to be back to his normal baseline status on 04/07. 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 No evidence of DTs, etc. during this hospitalization. (9) Dysphagia as late effect of cerebrovascular accident (CVA) SNOMED Code(s): 897271985 Code(s): I69.391 - DYSPHAGIA FOLLOWING CEREBRAL INFARCTION Status: Chronic Priority: High Current Visit: Yes Annotation/Comment:: Note recurrent aspiration pneumonia. Patient refused aspiration diet including thickened liquids, etc. Strict aspiration precautions initiated on 04/07 (10) CHF (congestive heart failure) SNOMED Code(s): 81584176 Code(s): I50.9 - HEART FAILURE, UNSPECIFIED Status: Acute Current Visit: Yes Qualifiers: Heart failure type: unspecified Heart failure chronicity: acute on chronic Qualified Code(s): I50.9 - Heart failure, unspecified Annotation/Comment:: BNP normalized on 04/08 with normal cardiac enzymes and no evidence of acute ischemia by serial EKGs. No chest pain or anginal type symptoms. Adjust oral Lasix therapy at time of discharge. Continue IV Lasix therapy for now. Note comfort care with no further echocardiogram, etc. (11) Shortened NM interval SNOMED Code(s): 13772202 Code(s): R94.31 - ABNORMAL ELECTROCARDIOGRAM [ECG] [EKG] Status: Acute Priority: Medium Current Visit: Yes Onset Date: 04/08/21 Annotation/Comment:: Observe for now - Problem List Review Problem List Initiated/Reviewed/Updated: Yes - My Orders Last 24 Hours: My Active Orders 04/08/21 08:45 CULTURE SPUTUM + SMEAR [RM] Routine 04/09/21 07:10 BASIC METABOLIC PANEL,BMP [CHEM] Routine 04/10/21 05:11 Abdomen Series w Chest 1V [CR] Routine CBC WITH AUTO DIFF [HEME] Routine COMPREHENSIVE METABOLIC PN,CMP [CHEM] Routine MAGNESIUM [CHEM] Routine PRO B-TYPE NATRIUR PEPT,BNPPRO [CHEM] Routine TROPONIN I [CHEM] Routine - Assessment Assessment:: as above. - Plan Plan:: As above. Extensive precautions were given to the patient, who is in agreement with the treatment plan. The patient will require about 1-2 days of inpatient/acute care secondary to multiple health problems as above. [facility] physician assumes care later today.
[2021-04-09 08:14] LABS: CHLORIDE,CL 106 mmol/L (98-107); SODIUM,NA 143 mmol/L (136-145)
[2021-04-09] MEDS: Furosemide 40 MG/4 ML VIAL IVPUSH SCH (08:45)
[2021-04-09] MEDS: Cyclobenzaprine 10 MG Tab PO SCH (13:00)
[2021-04-09] MEDS: Potassium Chloride 20 MEQ Tab.ER PO SCH (13:00)
[2021-04-09] MEDS: Polyethylene Glycol 3350 Powder 17 GM Packet PO SCH (13:00)
[2021-04-09] MEDS: Phenytoin 100 MG Cap.ER PO SCH (19:45)
[2021-04-09] MEDS: Simvastatin 20 MG Tab PO SCH (19:47)
[2021-04-09] MEDS: Lactulose Soln 10 GM/15 ML 30 ML UD Cup PO SCH (21:18)
[2021-04-10] MEDS: Ampicillin/Sulbactam Na 1.5 GM in Sodium Chloride 0.9% 100 ML IV SCH ×3 (01:50→10:31)
[2021-04-10] MEDS: metroNIDAZOLE/Normal Saline 500 MG in Premix Bag 1 BAG IV SCH ×2 (02:34→10:20)
[2021-04-10] MEDS: carBAMazepine 100 MG Cap.ER PO SCH (08:00)
[2021-04-10] MEDS: Benztropine 1 MG Tab PO SCH (08:00)
[2021-04-10] MEDS: Albuterol/Ipratropium 3.0-0.5 MG/3 ML Neb Soln INH SCH (08:00)
[2021-04-10] MEDS: Furosemide 40 MG/4 ML VIAL IVPUSH SCH (08:01)
[2021-04-10] MEDS: predniSONE 5 MG Tab PO SCH (08:01)
[2021-04-10] MEDS: Aspirin 81 MG Tab.EC PO SCH (08:01)
[2021-04-10] MEDS: Sodium Chloride 0.9% 10 ML Syringe FLUSH PRN (08:02)
[2021-04-10 08:51] LABS: CHLORIDE,CL 108 mmol/L (98-107); SODIUM,NA 144 mmol/L (136-145)
[2021-04-10 09:39] VITALS: BP 109/63; PULSE 80
--- NOTE | 2021-04-10 09:39 | PCM.DCSUM1 ---
Discharge Summary - Hospital Course Brief History: Admitted for further evaluation and treatment of suspected pneumonia, fever, tachycardia, altered mental status. Diagnosis: Stroke: No - Discharge Data Discharge Date: 04/10/21 Discharge Disposition: DC/Tfer to SNF 03 Condition: Fair - Referral to Home Health Primary Care Physician: SIERRA Fu - Discharge Diagnosis/Problem(s) (1) Pneumonia, aspiration SNOMED Code(s): 002624054 ICD Code: J69.0 - PNEUMONITIS DUE TO INHALATION OF FOOD AND VOMIT Status: Acute Priority: High Current Visit: Yes Onset Date: ~04/05/21 Problem Details: Likely aspiration pneumonia prior to admission with no reoccurrence during this hospitalization. Unasyn initiated on admission. Additional IV Flagyl therapy initiated on 04/07. Note somewhat refractory pneumonia with fever on 04/07 and planned transfer back to [facility] in [facility]. Sputum for culture and sensitivity obtained with final result showing Klebsiella and Strep Mutans. Klebsiella susceptible to Levaquin. Previous leukocytosis resolved on 04/06. Patient is back to usual 2-3L O2 via NC with sats in upper 90s. Chest xray today shows overall improvement. Qualifiers: Aspiration pneumonia type: unspecified Laterality: bilateral Lung location: lower lobe of lung Qualified Code(s): J69.0 - Pneumonitis due to inhalation of food and vomit (2) Fever SNOMED Code(s): 281641605 ICD Code: R50.9 - FEVER, UNSPECIFIED Status: Acute Priority: High Current Visit: Yes Onset Date: 04/05/21 Problem Details: Fever/lethargy/weakness/increased confusion/tachy day of admission. Improved. Afebrile. Blood cultures negative. IV Unasyn initiated in ER. Sputum culture showed Strep Mutans and Klebsiella. Qualifiers: Fever type: unspecified Qualified Code(s): R50.9 - Fever, unspecified (3) Hypoxemia SNOMED Code(s): 791504296 ICD Code: R09.02 - HYPOXEMIA Status: Chronic Priority: [facility] Current Visit: Yes Problem Details: Chronic. Patient has O2 via NC at [facility] but only will use it intermittently. Staff from [facility] note that he is frequently in high 80s when pulse oximetry checked. When on O2 usually has 2-3L flow. Needed to have flow increased in ER to 4-5L to keep sats around low 90s when admitted. Is back to baseline supplemental O2. (4) Dysphagia causing pulmonary aspiration with swallowing SNOMED Code(s): 54201200, 17551900 ICD Code: R13.19 - OTHER DYSPHAGIA Status: Chronic Priority: High Current Visit: Yes Problem Details: Has not appeared to have any recurrence of aspiration since admission. (5) COPD (chronic obstructive pulmonary disease) SNOMED Code(s): 91054627 ICD Code: J44.9 - CHRONIC OBSTRUCTIVE PULMONARY DISEASE, UNSPECIFIED Status: Chronic Priority: Medium Current Visit: Yes Problem Details: Note aspiration pneumonia as above. Attempt incentive spirometry, however may be difficult secondary to patient's mental status, etc.. Note steroid-dependent COPD. Qualifiers: COPD type: COPD with acute lower respiratory infection Qualified Code(s): J44.0 - Chronic obstructive pulmonary disease with (acute) lower respiratory infection (6) BPH (benign prostatic hyperplasia) SNOMED Code(s): 880891115 ICD Code: N40.0 - BENIGN PROSTATIC HYPERPLASIA WITHOUT LOWER URINRY TRACT SYMP Status: Chronic Priority: Low Current Visit: No Problem Details: No acute changes per [facility] Qualifiers: Lower urinary tract symptom presence: unspecified whether lower urinary tract symptoms present Qualified Code(s): N40.0 - Benign prostatic hyperplasia without lower urinary tract symptoms (7) GERD (gastroesophageal reflux disease) SNOMED Code(s): 313163126 ICD Code: K21.9 - GASTRO-ESOPHAGEAL REFLUX DISEASE WITHOUT ESOPHAGITIS Status: Chronic Priority: Medium Current Visit: Yes Problem Details: No recent or current complaints. Continue to observe closely. Qualifiers: Esophagitis presence: esophagitis presence not specified Qualified Code(s): K21.9 - Gastro-esophageal reflux disease without esophagitis (8) Epilepsy SNOMED Code(s): 47167350 ICD Code: G40.909 - EPILEPSY, UNSP, NOT INTRACTABLE, WITHOUT STATUS EPILEPTICUS Status: Chronic Priority: Low Current Visit: No Problem Details: No acute changes reported. Qualifiers: Epilepsy type: unspecified (9) Osteoporosis SNOMED Code(s): 26344712 ICD Code: M81.0 - AGE-RELATED OSTEOPOROSIS W/O CURRENT PATHOLOGICAL FRACTURE Status: Chronic Priority: Low Current Visit: No Problem Details: No acute changes reported. Qualifiers: Osteoporosis type: unspecified (10) Alcoholic dementia SNOMED Code(s): 410759 ICD Code: F10.27 - ALCOHOL DEPENDENCE WITH ALCOHOL-INDUCED PERSISTING DEMENTIA Status: Chronic Priority: Medium Current Visit: Yes Problem Details: Increased confusion noted per [facility] staff prior to admission likely secondary to his aspiration pneumonia. Patient appears to be back to his normal baseline status on 04/07. 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 No evidence of DTs, etc. during this hospitalization. Qualifiers: Dementia behavioral disturbance: without behavioral disturbance Qualified Code(s): F10.27 - Alcohol dependence with alcohol-induced persisting dementia (11) Hyperlipemia SNOMED Code(s): 72543624 ICD Code: E78.5 - HYPERLIPIDEMIA, UNSPECIFIED Status: Chronic Priority: Low Current Visit: No Problem Details: Under therapy Qualifiers: Hyperlipidemia type: unspecified Qualified Code(s): E78.5 - Hyperlipidemia, unspecified (12) Depression SNOMED Code(s): 68524949 ICD Code: F32.9 - MAJOR DEPRESSIVE DISORDER, SINGLE EPISODE, UNSPECIFIED Status: Chronic Priority: Low Current Visit: No Problem Details: No acute changes per history (13) 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 (14) CHF (congestive heart failure) SNOMED Code(s): 24316546 ICD Code: I50.9 - HEART FAILURE, UNSPECIFIED Status: Acute Current Visit: Yes Problem Details: BNP normalized on 04/08 with normal cardiac enzymes and no evidence of acute ischemia by serial EKGs. No chest pain or anginal type symptoms. Adjust oral Lasix therapy at time of discharge. IV Lasix therapy for now. Note comfort care with no further echocardiogram, etc. Qualifiers: Heart failure type: unspecified Heart failure chronicity: acute on chronic Qualified Code(s): I50.9 - Heart failure, unspecified (15) Shortened ID interval SNOMED Code(s): 11743624 ICD Code: R94.31 - ABNORMAL ELECTROCARDIOGRAM [ECG] [EKG] Status: Acute Priority: Medium Current Visit: Yes Onset Date: 04/08/21 Problem Details: Observe for now (16) Hypoalbuminemia SNOMED Code(s): 275483596 ICD Code: E88.09 - OTH DISORDERS OF PLASMA-PROTEIN METABOLISM, NEC Status: Chronic Priority: Medium Current Visit: Yes Problem Details: Observe for now (17) Hypocalcemia SNOMED Code(s): 6162451 ICD Code: E83.51 - HYPOCALCEMIA Status: Chronic Priority: Medium Current Visit: Yes Problem Details: Observe for now with medications adjusted during this hospitalization. Close follow-up by regular providers after discharge. (18) Need for comfort care SNOMED Code(s): 274796154, 994641528 ICD Code: XEI2147 - Status: Chronic Priority: Medium Current Visit: Yes Problem Details: Prognosis guarded secondary to multiple healthcare issues as per emergency room note and as above/below. CODE STATUS confirmed from senior living records and by [facility] physician on admission. - Patient Summary/Data Hospital Course: Patient showed gradual improvement throughout stay on IV Unasyn. Flagyl later added. Diuresed. Able to return to usual baseline supplemental O2 via NC. Fevers and elevated WBC resolved. Sputum culture identified Klebsiella and Strep Mutans. Susceptible to Levaquin. Given patient's significant improvement and appearance of being back to baseline, he will be discharged back to the senior living on Levaquin. Close follow up with PCP on rounds. Also needs to be determined if patient should have CT scheduled to further evaluate ovoid nodules noted right lower lung base by Radiology. Temporary addition of afternoon dose of Lasix. To be re-evaluated by PCP to determine if increased Lasix dose should be continued/recheck potassium level. - Patient Instructions Diet: Usual Diet as Tolerated Fluid Restriction: 2000 mL Activity: As Tolerated Other/Special Instructions: Start levaquin 8 day course. Arrange follow up with PCP this week for recheck. Will need to be determined if additional Lasix is well tolerated and should be continued. Will need to have potassium level rechecked given increased Lasix dosing. Also needs to be discussed if patient should undergo chest CT for further evaluation of ovoid nodules noted by Radiology at base right lower lung. - Discharge Plan *PRESCRIPTION DRUG MONITORING PROGRAM REVIEWED*: Not Applicable *COPY OF PRESCRIPTION DRUG MONITORING REPORT IN PATIENT YESICA: Not Applicable Prescriptions/Med Rec: Furosemide [Lasix] 20 mg PO DAILY #20 tablet Levofloxacin [Levaquin] 500 mg PO DAILY #8 tablet Home Medications: Home Meds Acetaminophen [Tylenol Extra Strength] 1,000 mg PO DAILY PRN 08/28/14 [History] Benztropine Mesylate 0.5 mg PO BID@0800,199908/28/14 [History] Cholecalciferol (Vitamin D3) [Vitamin D3] 2,000 units PO 0800 08/28/14 [History] Cyclobenzaprine [Flexeril] 10 mg PO DAILY@1200 08/28/14 [History] Phenytoin Sodium Extended 300 mg PO BEDTIME 08/28/14 [History] Simvastatin [Zocor] 40 mg PO BEDTIME 08/28/14 [History] bisacodyL [Dulcolax] 5 - 15 mg PO DAILY PRN 08/28/14 [History] carBAMazepine [TEGretol XR] 100 mg PO BID@0800,199908/28/14 [History] carBAMazepine [TEGretol XR] 200 mg PO BID@0800,199908/28/14 [History] Aspirin [Halfprin] 81 mg PO DAILY 12/03/17 [History] diphenhydrAMINE HCl/Zinc Acet [Benadryl Itch Stopping Crm] 28.3 gm TP Q4HR PRN 12/03/17 [History] Sennosides/Docusate Sodium [Senna-S Tablet] 1 each PO BID@0800,199912/04/17 [History] Potassium Chloride 20 meq PO DAILY@1200 #60 cap.er 12/08/17 [Rx] Ipratropium/Albuterol Sulfate [Iprat-Albut 0.5-3(2.5) mg/3 ml] 1 ampule IH Q4HR PRN 01/12/20 [History] Ipratropium/Albuterol Sulfate [Iprat-Albut 0.5-3(2.5) mg/3 ml] 3 ml IH TID@0800,1399,199901/12/20 [History] Zoledronic Acid in Water [Reclast] 5 mg IV ASDIRECTED 01/12/20 [History] predniSONE [Prednisone] 5 mg PO 0800 01/12/20 [History] Albuterol Sulfate 1 each INH Q2HR PRN 03/06/21 [History] Furosemide [Lasix] [place] [address]/06/21 [History] polyethylene glycoL 3350 [MiraLAX] 1 pkt PO DAILY@12 03/06/21 [History] Lactulose 10 gm PO Q48H 04/05/21 [History] Furosemide [Lasix] 20 mg PO DAILY #20 tablet 04/10/21 [Rx] Levofloxacin [Levaquin] 500 mg PO DAILY #8 tablet 04/10/21 [Rx] Forms: ED Department Discharge Referrals: Carlee Garcia PA [Primary Care Provider] - - Discharge Summary/Plan Comment DC Time >30 min.: No - General Info Date of Service: 04/10/21 Admission Dx/Problem (Free Text: 1. Aspiration pneumonia 2. CHF 3. COPD 4. Confusion Subjective Update: Patient is without any acute complaints. Functional Status: Reports: Pain Controlled, Tolerating Diet. Denies: New Symptoms - Review of Systems General: Reports: Appetite (good). Denies: Fever, Weakness, Fatigue, Malaise, Chills, Night Sweats HEENT: Reports: Glasses Pulmonary: Reports: No Symptoms. Denies: Cough, Hemoptysis, Wheezing Cardiovascular: Reports: No Symptoms Gastrointestinal: Reports: No Symptoms Genitourinary: Reports: No Symptoms Musculoskeletal: Reports: Other (no acute complaints) Skin: Reports: No Symptoms Neurological: Reports: Confusion (chronic) Psychiatric: Reports: Confusion (chronic) - Patient Data Vitals - Most Recent: Last Vital Signs Temp 36.2 C 04/10/21 02:00 Pulse 67 04/10/21 02:00 Resp 14 04/10/21 02:00 BP 129/79 04/10/21 02:00 Pulse Ox 97 04/10/21 02:00 Weight - Most Recent: 72.121 kg I&O - Last 24 hours: Intake & Output 04/09/21 04/10/21 04/10/21 22:59 06:59 14:59 Intake Total 220 95 180 Balance 220 95 180 Lab Results - Last 24 hrs: Laboratory Results - last 24 hr 04/10/21 04/10/21 Range/Units 08:07 08:07 WBC 5.7 (4.0-10.2) K/uL RBC 4.17 L (4.33-5.41) M/uL Hgb 13.5 (13.1-16.8) g/dL Hct 41.4 (39.0-49.0) % MCV 99.3 H (84.0-98.0) fL MCH 32.4 (28.2-33.3) pg MCHC 32.6 (31.7-36.0) g/dL RDW 13.5 (11.2-14.1) % Plt Count 179 (150-350) K/uL Neut % (Auto) 75.8 (45.0-80.0) % Lymph % (Auto) 11.3 (10.0-50.0) % [place] % (Auto) 9.7 (2.0-14.0) % Eos % (Auto) 3.0 (0.0-5.0) % Baso % (Auto) 0.2 (0.0-2.0) % Neut # (Auto) 4.30 (1.40-7.00) K/uL Lymph # (Auto) 0.64 (0.50-3.50) K/uL [place] # (Auto) 0.55 (0.00-1.00) K/uL Eos # (Auto) 0.17 (0.00-0.50) K/uL Baso # (Auto) 0.01 (0.00-0.20) K/uL Sodium 144 (136-145) mmol/L Potassium 4.4 (3.5-5.1) mmol/L Chloride 108 H (98-107) mmol/L Carbon Dioxide 29.3 (21.0-32.0) mmol/L BUN 17 (7-18) mg/dL Creatinine 0.71 (0.51-1.17) mg/dL Est Cr Clr Drug Dosing 83.62 mL/min Estimated GFR (MDRD) > 60 mL/min Glucose 86 (70-99) mg/dL Calcium 8.1 L (8.5-10.1) mg/dL Magnesium 2.0 (1.8-2.4) mg/dL Total Bilirubin 0.2 (0.2-1.0) mg/dL AST 16 (15-37) U/L ALT 20 (12-78) U/L Alkaline Phosphatase 67 (46-116) IU/L Troponin I 0.000 (0.000-0.056) ng/mL NT-Pro-B Natriuret Pep 146 H (0-125) pg/mL Total Protein 5.8 L (6.4-8.2) g/dL Albumin 2.8 L (3.4-5.0) g/dL JOSEMANUEL Results - Last 24 hrs: Microbiology 04/05/21 18:30 Aerobic Blood Culture - Preliminary Blood - Venous - Lab Draw NO GROWTH AFTER 4 DAYS Anaerobic Blood Culture - Preliminary NO GROWTH AFTER 4 DAYS 04/05/21 17:50 Aerobic Blood Culture - Preliminary Blood - Venous NO GROWTH AFTER 4 DAYS Anaerobic Blood Culture - Preliminary NO GROWTH AFTER 4 DAYS 04/08/21 08:45 Gram Stain - Final Sputum - Expectorated Sputum Culture - Preliminary Gram Negative Rods Gram Positive Cocci In Chains Med Orders - Current: Current Medications Acetaminophen (Acetaminophen 500 Mg Tab) 1,000 mg PO DAILY PRN PRN Reason: Pain Albuterol (Albuterol 0.083% 2.5 Mg/3 Ml Neb Soln) 2.5 mg INH Q2HR PRN PRN Reason: Dyspnea Albuterol/Ipratropium (Albuterol/Ipratropium 3.0-0.5 Mg/3 Ml Neb Soln) 3 ml INH Q4HR PRN PRN Reason: Shortness of Breath Albuterol/Ipratropium (Albuterol/Ipratropium 3.0-0.5 Mg/3 Ml Neb Soln) 3 ml INH TID@08,1399,1999 [facility] Last Admin: 04/10/21 08:00 Dose: 3 ml Documented by: Aspirin (Aspirin 81 Mg Tab.Ec) 81 mg PO DAILY [facility] Last Admin: 04/10/21 08:01 Dose: 81 mg Documented by: Benztropine Mesylate (Benztropine 1 Mg Tab) 0.5 mg PO BID@ [facility] Last Admin: 04/10/21 08:00 Dose: 0.5 mg Documented by: Bisacodyl (Bisacodyl 5 Mg Tab) 5 - 15 mg PO DAILY PRN PRN Reason: Constipation Carbamazepine (Carbamazepine 100 Mg Cap.Er) 300 mg PO BID@ [facility] Last Admin: 04/10/21 08:00 Dose: 300 mg Documented by: Cyclobenzaprine HCl (Cyclobenzaprine 10 Mg Tab) 10 mg PO DAILY@1200 [facility] Last Admin: 04/09/21 13:00 Dose: 10 mg Documented by: Furosemide (Furosemide 40 Mg/4 Ml Vial) 40 mg IVPUSH DAILY [facility] Last Admin: 04/10/21 08:01 Dose: 40 mg Documented by: Ampicillin Sodium/Sulbactam (Sodium 1.5 gm/ Sodium Chloride) 100 mls @ 200 mls/hr IV Q6H [facility] Last Admin: 04/10/21 07:59 Dose: 200 mls/hr Documented by: Metronidazole 500 mg/ Premix 100 mls @ 100 mls/hr IV Q8H [facility] Last Admin: 04/10/21 02:34 Dose: 100 mls/hr Documented by: Lactulose (Lactulose Soln 10 Gm/15 Ml 30 Ml Ud Cup) 10 gm PO Q48H [facility] Last Admin: 04/09/21 21:18 Dose: 10 gm Documented by: Phenytoin Sodium (Phenytoin 100 Mg Cap.Er) 300 mg PO BEDTIME [facility] Last Admin: 04/09/21 19:45 Dose: 300 mg Documented by: Polyethylene Glycol (Polyethylene Glycol 3350 Powder 17 Gm Packet) 17 gm PO DAILY@12 [facility] Last Admin: 04/09/21 13:00 Dose: 17 gm Documented by: Potassium Chloride (Potassium Chloride 20 Meq Tab.Er) 20 meq PO DAILY@1200 [facility] Last Admin: 04/09/21 13:00 Dose: 20 meq Documented by: Prednisone (Prednisone 5 Mg Tab) 5 mg PO WITHBREAKFAST [facility] Last Admin: 04/10/21 08:01 Dose: 5 mg Documented by: Senna/Docusate Sodium (Docusate Sodium/Sennosides 50-8.6 Mg Tab) 1 tab PO BID@0800,2000 [facility] Last Admin: 04/10/21 08:01 Dose: 1 tab Documented by: Simvastatin (Simvastatin 20 Mg Tab) 40 mg PO BEDTIME [facility] Last Admin: 04/09/21 19:47 Dose: 40 mg Documented by: Sodium Chloride (Sodium Chloride 0.9% 10 Ml Syringe) 10 ml FLUSH ASDIRECTED PRN PRN Reason: Keep Vein Open Last Admin: 04/10/21 08:02 Dose: 10 ml Documented by: Zinc Acetate/Diphenhydramine (Diphenhydramine/Zinc Acetate 2% Crm 28.4 Gm Tube) 0 gm TOP Q4HR PRN PRN Reason: Itching Discontinued Medications Albuterol/Ipratropium (Albuterol/Ipratropium 3.0-0.5 Mg/3 Ml Neb Soln) 3 ml INH TID [facility] Albuterol/Ipratropium (Albuterol/Ipratropium 3.0-0.5 Mg/3 Ml Neb Soln) 3 ml INH TID [facility] Last Admin: 04/06/21 09:03 Dose: 3 ml Documented by: Benztropine Mesylate (Benztropine 1 Mg Tab) 0.5 mg PO BID@ [facility] Furosemide (Furosemide 20 Mg Tab) 40 mg PO 0800 [facility] Ampicillin Sodium/Sulbactam (Sodium 3 gm/ Sodium Chloride) 100 mls @ 100 mls/hr IV ONETIME ONE Stop: 04/05/21 19:19 Last Admin: 04/05/21 19:22 Dose: 100 mls/hr Documented by: Ampicillin Sodium/Sulbactam (Sodium 1.5 gm/ Sodium Chloride) 100 mls @ 100 mls/hr IV Q6H [facility] Last Admin: 04/07/21 07:17 Dose: 100 mls/hr Documented by: Sodium Chloride (Normal Saline) 1,000 mls @ 75 mls/hr IV ASDIRECTED [facility] Last Admin: 04/05/21 22:34 Dose: 75 mls/hr Documented by: Lactulose (Lactulose Soln 10 Gm/15 Ml 30 Ml Ud Cup) 10 gm PO ONETIME ONE Stop: 04/05/21 22:16 Last Admin: 04/05/21 22:34 Dose: 10 gm Documented by: Phenytoin Sodium (Phenytoin 100 Mg Cap.Er) 300 mg PO BEDTIME [facility] Senna/Docusate Sodium (Docusate Sodium/Sennosides 50-8.6 Mg Tab) 1 tab PO BID@799,1999 [facility] - Exam Quality Assessment: Reports: Supplemental Oxygen General: Reports: Alert, No Acute Distress, Other (oriented to self) HEENT: Reports: Pupils Equal, Pupils Reactive, EOMI, Mucous Membr. Moist/[place] Neck: Reports: Supple Lungs: Reports: Decreased Breath Sounds (throughout), Rhonchi (minimal/right posterior chest). Denies: Crackles, Rales, Stridor, Wheezing Cardiovascular: Reports: Regular Rate, Regular Rhythm GI/Abdominal Exam: Normal Bowel Sounds, Soft, Non-Tender (Male) Exam: Deferred Rectal (Males) Exam: Deferred Back Exam: Denies: Muscle Spasm, Paraspinal Tenderness, Vertebral Tenderness Extremities: Non-Tender, Normal Capillary Refill Skin: Reports: Warm, Dry Neurological: Reports: No New Focal Deficit Psy/Mental Status: Reports: Alert, Normal Affect, Normal Mood
== END 2021-04-10 11:00 | DRG 178 ==
LOC: LL.ED 17:13 → LL.MS 20:03
PROVIDERS: ADMIT Emergency Medicine; ATTEND Emergency Medicine
DX: R50.9 Fever, unspecified (principal); J69.0 Pneumonitis due to inhalation of food and vomit; J44.0 Chronic obstructive pulmonary disease with (acute) lower respiratory infection; F10.27 Alcohol dependence with alcohol-induced persisting dementia; I69.351 Hemiplegia and hemiparesis following cerebral infarction affecting right dominant side; I42.9 Cardiomyopathy, unspecified; J44.9 Chronic obstructive pulmonary disease, unspecified; R13.19 Other dysphagia; N40.0 Benign prostatic hyperplasia without lower urinary tract symptoms; K21.9 Gastro-esophageal reflux disease without esophagitis; G40.909 Epilepsy, unspecified, not intractable, without status epilepticus; M81.0 Age-related osteoporosis without current pathological fracture; F41.9 Anxiety disorder, unspecified; F03.90 Unspecified dementia, unspecified severity, without behavioral disturbance, psychotic disturbance, mood disturbance, and anxiety; F09 Unspecified mental disorder due to known physiological condition; E78.5 Hyperlipidemia, unspecified; F32.9 Major depressive disorder, single episode, unspecified; I50.9 Heart failure, unspecified; R94.31 Abnormal electrocardiogram [ECG] [EKG]; E88.09 Other disorders of plasma-protein metabolism, not elsewhere classified; E83.51 Hypocalcemia; H54.7 Unspecified visual loss; I11.0 Hypertensive heart disease with heart failure; E78.00 Pure hypercholesterolemia, unspecified; K59.09 Other constipation; M19.90 Unspecified osteoarthritis, unspecified site; E55.9 Vitamin D deficiency, unspecified; Z79.82 Long term (current) use of aspirin; Z79.52 Long term (current) use of systemic steroids; Z79.899 Other long term (current) drug therapy; Z99.81 Dependence on supplemental oxygen
CPT/HCPCS: 36415; 71045; 74018; 74022; 80048; 80053; 81001; 82550; 82553; 83605; 83735; 83880; 84484; 85025; 85379; 85610; 87040; 87070; 87077; 87186; 87205; 93005; 94640; 96365; 99223; 99232; 99233; 99238; 99285-25; A9270-GY; J0295; J1940; J3490; J7030; J7512; J7620-GY

== ENCOUNTER 2021-04-19 21:16 | Emergency (ER) | payer MEDICARE, BC, MEDICAID ==
[2021-04-19 21:22] VITALS: BP 104/59; PULSE 101
--- NOTE | 2021-04-19 22:02 | EDM.PDOC ---
ED HPI GENERAL MEDICAL PROBLEM - General Chief Complaint: Fever Stated Complaint: fever Time Seen by Provider: 04/19/21 21:39 Source of Information: Reports: Patient, EMS, Snf Records - History of Present Illness INITIAL COMMENTS - FREE TEXT/NARRATIVE: Fadi is a 75 y/o male who lives at the [facility]. Staff reported that he had a low grade fever tonight and contacted his PCP. His PCP advised that he brought to the ER for evaluation and labs. He did have a temp at the skilled nursing of 99. He was sitting outside all day today and it is very warm out today. Patient denies any complaints on arrival. 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 - Related Data Allergies Allergy/AdvReac Type Severity Reaction Status Date / Time No Known Allergies Allergy Verified 04/05/21 19:53 Home Meds: Home Meds Acetaminophen [Tylenol Extra Strength] 1,000 mg PO DAILY PRN 08/28/14 [History] Benztropine Mesylate 0.5 mg PO BID@08,199908/28/14 [History] Cholecalciferol (Vitamin D3) [Vitamin D3] 2,000 units PO 0800 08/28/14 [History] Cyclobenzaprine [Flexeril] 10 mg PO DAILY@1200 08/28/14 [History] Phenytoin Sodium Extended 300 mg PO BEDTIME 08/28/14 [History] Simvastatin [Zocor] 40 mg PO BEDTIME 08/28/14 [History] bisacodyL [Dulcolax] 5 - 15 mg PO DAILY PRN 08/28/14 [History] carBAMazepine [TEGretol XR] 100 mg PO BID@799,199908/28/14 [History] carBAMazepine [TEGretol XR] 200 mg PO BID@799,199908/28/14 [History] Aspirin [Halfprin] 81 mg PO DAILY 12/03/17 [History] diphenhydrAMINE HCl/Zinc Acet [Benadryl Itch Stopping Crm] 28.3 gm TP Q4HR PRN 12/03/17 [History] Sennosides/Docusate Sodium [Senna-S Tablet] 1 each PO BID@0800,199912/04/17 [History] Potassium Chloride 20 meq PO DAILY@1200 #60 cap.er 12/08/17 [Rx] Ipratropium/Albuterol Sulfate [Iprat-Albut 0.5-3(2.5) mg/3 ml] 1 ampule IH Q4HR PRN 01/12/20 [History] Ipratropium/Albuterol Sulfate [Iprat-Albut 0.5-3(2.5) mg/3 ml] 3 ml IH TID@0800,1400,2000 01/12/20 [History] Zoledronic Acid in Water [Reclast] 5 mg IV ASDIRECTED 01/12/20 [History] predniSONE [Prednisone] 5 mg PO 0800 01/12/20 [History] Albuterol Sulfate 1 each INH Q2HR PRN 03/06/21 [History] Furosemide [Lasix] 40 mg PO 0800 03/06/21 [History] polyethylene glycoL 3350 [MiraLAX] 1 pkt PO DAILY@12 03/06/21 [History] Lactulose 10 gm PO Q48H 04/05/21 [History] Furosemide [Lasix] 20 mg PO DAILY #20 tablet 04/10/21 [Rx] Levofloxacin [Levaquin] 500 mg PO DAILY #8 tablet 04/10/21 [Rx] Past Medical History HEENT History: Reports: Cataract, Impaired Vision, Other (See Below) Other HEENT History: Patient was glasses. 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 Recurrent aspiration pneumonia. Previous right sixth rib fracture. Gastrointestinal History: Reports: Chronic Constipation, GERD Genitourinary History: Reports: BPH, Prostate Disorder, Other (See Below) Other Genitourinary History: Chronic prostatitis. Musculoskeletal History: Reports: Arthritis, Fracture, Osteoarthritis, Osteoporosis, Other (See Below) Other Musculoskeletal History: Distal clavicular fracture on 01/12/2020. Chronic right leg brace therapy secondary to hemiparesis. 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 Psychiatric History: Reports: Addiction, Anxiety, Dementia, Depression, Psychosis, Other (See Below) Other Psychiatric History: History of alcohol abuse. Organic brain syndrome/encephalopathy as above. Endocrine/Metabolic History: Reports: Osteopenia, Osteoporosis, Vitamin D Deficiency Hematologic History: Reports: Other (See Below) Other Hematologic History: vitamin d deficiency Dermatologic History: Reports: Seborrheic Dermatitis, Other (See Below) Other Dermatologic History: Benign Lipomatous of skin/subcu of right leg, seborrheic keratosis - Past Imaging History Past Imaging History: Reports: Swallow Study (12/03/2017.) Social & Family History - Caffeine Use Caffeine Use: Reports: Coffee - Living Situation & Occupation Living situation: Reports: Extended Care Facility ([facility]) Occupation: Disabled Review of Systems - Review of Systems Review Of Systems: See Below Constitutional: Reports: No Symptoms, Fever (reported by skilled nursing staff) Eyes: Reports: No Symptoms Ears: Reports: No Symptoms Nose: Reports: No Symptoms Mouth/Throat: Reports: No Symptoms Respiratory: Reports: No Symptoms Cardiovascular: Reports: No Symptoms GI/Abdominal: Reports: No Symptoms Genitourinary: Reports: No Symptoms Musculoskeletal: Reports: No Symptoms Skin: Reports: No Symptoms Neurological: Reports: No Symptoms Psychiatric: Reports: No Symptoms ED EXAM, GENERAL - Physical Exam Exam: See Below General Appearance: Alert, WD/WN, No Apparent Distress (Elderly male, he is sitting in a wheelchair at bedside. His clothes are slightly damp as if he has been sweating.) Eye Exam: Bilateral Eye: PERRL Ears: Normal External Exam, Hearing Grossly Normal, Normal TMs Nose: Normal Inspection Throat/Mouth: Normal Lips, Normal Voice, Other (teeth in disrepair and many missing teeth noted) Head: Atraumatic, Normocephalic Neck: Normal Inspection, Supple Respiratory/Chest: No Respiratory Distress, Lungs Clear, Chest Non-Tender Cardiovascular: Normal Peripheral Pulses, Regular Rate, Rhythm, No JVD GI/Abdominal: Normal Bowel Sounds, Soft, Non-Tender (Male) Exam: Deferred Rectal (Males) Exam: Deferred Back Exam: Normal Inspection Extremities: Other (Right arm weak and slightly contractured, right leg weak and brace on.) Neurological: Alert, Oriented, CN II-XII Intact Psychiatric: Normal Affect Skin Exam: Warm, Dry, Intact, Normal Color Course - Vital Signs Text/Narrative:: 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 Labs ordered. Temp on arrival here was 99.0. Patient had no complaints. 2240 Labs reviewed. Note WBC=10.6, Neut=79.3%; CMP BUN=24, CRP=1.6. Patient had temp pf 98.9 here in the ED, but no other toxic appearance. UA ordered, patient unable to urinate. Will send patient back to skilled nursing and obtain UA there. Suspect sx related to extended heat exposure today. Discharged in stable condition back to [facility]. Last Recorded V/S: Last Vital Signs Temp 37.2 C 04/19/21 21:16 Pulse 101 H 04/19/21 21:16 Resp 20 04/19/21 21:16 BP 104/59 L 04/19/21 21:16 Pulse Ox 93 L 04/19/21 21:16 - Orders/Labs/Meds Orders: Active Orders 24 hr Category Date Time Status UA RFX JOSEMANUEL AND CULT IF INDIC [URIN] Stat Lab 04/19/21 21:26 Ordered Labs: Laboratory Tests 04/19/21 04/19/21 04/19/21 Range/Units 21:40 21:40 21:40 WBC 10.6 H (4.0-10.2) K/uL RBC 4.43 (4.33-5.41) M/uL Hgb 14.3 (13.1-16.8) g/dL Hct 44.0 (39.0-49.0) % MCV 99.3 H (84.0-98.0) fL MCH 32.3 (28.2-33.3) pg MCHC 32.5 (31.7-36.0) g/dL RDW 14.2 H (11.2-14.1) % Plt Count 241 (150-350) K/uL Neut % (Auto) 79.3 (45.0-80.0) % Lymph % (Auto) 8.4 L (10.0-50.0) % Prentiss % (Auto) 10.5 (2.0-14.0) % Eos % (Auto) 1.6 (0.0-5.0) % Baso % (Auto) 0.2 (0.0-2.0) % Neut # (Auto) 8.40 H (1.40-7.00) K/uL Lymph # (Auto) 0.89 (0.50-3.50) K/uL Prentiss # (Auto) 1.11 H (0.00-1.00) K/uL Eos # (Auto) 0.17 (0.00-0.50) K/uL Baso # (Auto) 0.02 (0.00-0.20) K/uL Sodium 144 (136-145) mmol/L Potassium 4.6 (3.5-5.1) mmol/L Chloride 106 (98-107) mmol/L Carbon Dioxide 32.5 H (21.0-32.0) mmol/L BUN 24 H (7-18) mg/dL Creatinine 1.03 (0.51-1.17) mg/dL Est Cr Clr Drug Dosing TNP Estimated GFR (MDRD) > 60 mL/min Glucose 102 H (70-99) mg/dL Calcium 8.0 L (8.5-10.1) mg/dL C-Reactive Protein 1.6 H (<=0.9) mg/dL Departure - Departure Time of Disposition: 22:44 Disposition: DC/Tfer to [facility] 65 Condition: Good Clinical Impression: Heat exposure Qualifiers: Encounter type: initial encounter Qualified Code(s): T67.9XXA - Effect of heat and light, unspecified, initial encounter - Discharge Information *PRESCRIPTION DRUG MONITORING PROGRAM REVIEWED*: Not Applicable *COPY OF PRESCRIPTION DRUG MONITORING REPORT IN PATIENT YESICA: Not Applicable Instructions: Preventing Heat Exhaustion, Adult, Fever, Adult, Sgud-ke-Pozc Forms: ED Department Discharge Sepsis Event Note (ED) - Evaluation Sepsis Screening Result: No Definite Risk - Focused Exam Vital Signs: Vital Signs Temp Pulse Resp BP Pulse Ox 04/19/21 21:16 37.2 C 101 H 20 104/59 L 93 L - My Orders Last 24 Hours: My Active Orders 04/19/21 21:26 UA RFX JOSEMANUEL AND CULT IF INDIC [URIN] Stat - Assessment/Plan Last 24 Hours: My Active Orders 04/19/21 21:26 UA RFX JOSEMANUEL AND CULT IF INDIC [URIN] Stat Assessment:: 1)Heat Exposure Plan: -Drink plenty of fluids -Resume skilled nursing meds -Obtain UA at skilled nursing when patient voids -Follow up with PCP for further concerns or return to the ER as needed
[2021-04-19 22:03] LABS: CHLORIDE,CL 106 mmol/L (98-107); SODIUM,NA 144 mmol/L (136-145)
== END 2021-04-19 23:15 ==
LOC: LL.ED 21:16
DX: T67.9XXA Effect of heat and light, unspecified, initial encounter (principal); E78.00 Pure hypercholesterolemia, unspecified; I11.0 Hypertensive heart disease with heart failure; I50.9 Heart failure, unspecified; J44.9 Chronic obstructive pulmonary disease, unspecified; K21.9 Gastro-esophageal reflux disease without esophagitis; F03.90 Unspecified dementia, unspecified severity, without behavioral disturbance, psychotic disturbance, mood disturbance, and anxiety; M19.90 Unspecified osteoarthritis, unspecified site; Z79.82 Long term (current) use of aspirin; Z86.73 Personal history of transient ischemic attack (TIA), and cerebral infarction without residual deficits; Z79.899 Other long term (current) drug therapy; Z99.81 Dependence on supplemental oxygen
CPT/HCPCS: 36415; 80048; 85025; 86140; 99283; 99284

== ENCOUNTER 2021-07-31 17:31 | Emergency (ER) | payer MEDICARE, BC, MEDICAID ==
[2021-07-31] MEDS ORDERED: Sodium Chloride 0.9% 10 ML Syringe FLUSH PRN (17:37)
--- NOTE | 2021-07-31 17:37 | EDM.PDOC ---
ED HPI GENERAL MEDICAL PROBLEM - General Chief Complaint: Neurological Problem Stated Complaint: unresponsive Time Seen by Provider: 07/31/21 17:31 Source of Information: Reports: EMS History Limitations: Reports: Altered Mental Status - History of Present Illness INITIAL COMMENTS - FREE TEXT/NARRATIVE: Patient comes to the emergency department today by ambulance from the local halfway with concerns of altered mental status. 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 The history is very limited as the patient report from the halfway is that he has been fine and today they just found him unresponsive. EMS when they arrived noted that he was laying kind of in the position on his left side with his arms and his legs contracted and he was unresponsive. He was not hypoxic. He is chronically on oxygen. Upon arrival he responds to painful stimuli. He purposefully pulls away from stimulus. No spontaneous movement or verbalization. Rest of the HPI is unobtainable due to presentation. Blood sugar per EMS was 90's. - Related Data Allergies Allergy/AdvReac Type Severity Reaction Status Date / Time No Known Allergies Allergy Verified 04/05/21 19:53 Home Meds: Home Meds Acetaminophen [Tylenol Extra Strength] 1,000 mg PO DAILY PRN 08/28/14 [History] Benztropine Mesylate 0.5 mg PO BID@0800,199908/28/14 [History] Cholecalciferol (Vitamin D3) [Vitamin D3] 2,000 units PO 0800 08/28/14 [History] Cyclobenzaprine [Flexeril] 10 mg PO DAILY@1200 08/28/14 [History] Phenytoin Sodium Extended 300 mg PO BEDTIME 08/28/14 [History] Simvastatin [Zocor] 40 mg PO BEDTIME 08/28/14 [History] bisacodyL [Dulcolax] 5 - 15 mg PO DAILY PRN 08/28/14 [History] carBAMazepine [TEGretol XR] 100 mg PO BID@0800,199908/28/14 [History] carBAMazepine [TEGretol XR] 200 mg PO BID@0800,199908/28/14 [History] Aspirin [Halfprin] 81 mg PO DAILY 12/03/17 [History] diphenhydrAMINE HCl/Zinc Acet [Benadryl Itch Stopping Crm] .3 gm TP Q4HR PRN 12/03/17 [History] Sennosides/Docusate Sodium [Senna-S Tablet] 1 each PO BID@0800,199912/04/17 [History] Potassium Chloride 20 meq PO DAILY@1200 #60 cap.er 12/08/17 [Rx] Ipratropium/Albuterol Sulfate [Iprat-Albut 0.5-3(2.5) mg/3 ml] 1 ampule IH Q4HR PRN 01/12/20 [History] Ipratropium/Albuterol Sulfate [Iprat-Albut 0.5-3(2.5) mg/3 ml] 3 ml IH TID@0800,1400,199901/12/20 [History] Zoledronic Acid in Water [Reclast] 5 mg IV ASDIRECTED 01/12/20 [History] predniSONE [Prednisone] 5 mg PO 0800 01/12/20 [History] Albuterol Sulfate 1 each INH Q2HR PRN 03/06/21 [History] Furosemide [Lasix] 40 mg PO 0800 03/06/21 [History] polyethylene glycoL 3350 [MiraLAX] 1 pkt PO DAILY@12 03/06/21 [History] Lactulose 10 gm PO Q48H 04/05/21 [History] Furosemide [Lasix] 20 mg PO DAILY #20 tablet 04/10/21 [Rx] Levofloxacin [Levaquin] 500 mg PO DAILY #8 tablet 04/10/21 [Rx] Past Medical History HEENT History: Reports: Cataract, Impaired Vision, Other (See Below) Other HEENT History: Patient was glasses. 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 Recurrent aspiration pneumonia. Previous right sixth rib fracture. Gastrointestinal History: Reports: Chronic Constipation, GERD Genitourinary History: Reports: BPH, Prostate Disorder, Other (See Below) Other Genitourinary History: Chronic prostatitis. Musculoskeletal History: Reports: Arthritis, Fracture, Osteoarthritis, Osteoporosis, Other (See Below) Other Musculoskeletal History: Distal clavicular fracture on 01/12/2020. Chronic right leg brace therapy secondary to hemiparesis. 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 Psychiatric History: Reports: Addiction, Anxiety, Dementia, Depression, Psychosis, Other (See Below) Other Psychiatric History: History of alcohol abuse. Organic brain syndrome/encephalopathy as above. Endocrine/Metabolic History: Reports: Osteopenia, Osteoporosis, Vitamin D Deficiency Hematologic History: Reports: Other (See Below) Other Hematologic History: vitamin d deficiency Dermatologic History: Reports: Seborrheic Dermatitis, Other (See Below) Other Dermatologic History: Benign Lipomatous of skin/subcu of right leg, seborrheic keratosis - Past Imaging History Past Imaging History: Reports: Swallow Study (12/03/2017.) Social & Family History - Caffeine Use Caffeine Use: Reports: Coffee - Living Situation & Occupation Living situation: Reports: Extended Care Facility ([facility]) Occupation: Disabled ED ROS GENERAL - Review of Systems Review Of Systems: Unable To Obtain Reason Not Obtained: altered LOC - Physical Exam Exam: See Below Exam Limited By: Altered Mental Status (responsive to painful stimulation no pu rposeful movement.) Course - Vital Signs Last Recorded V/S: Last Vital Signs Temp 97.8 F 07/31/21 17:50 Pulse 75 07/31/21 17:50 Resp 18 07/31/21 17:50 BP 131/72 07/31/21 17:50 Pulse Ox 94 L 07/31/21 17:50 - Orders/Labs/Meds Orders: Active Orders 24 hr Category Date Time Status Woodward Catheter Insertion [Insert Urinary Catheter] [OM. Care 07/31/21 17:45 Ordered PC] Q24H Peripheral IV Care [RC] . DIRECTED Care 07/31/21 17:38 Active Urinary Catheter Assessment [RC] ASDIRECTED Care 07/31/21 17:44 Active Head wo Cont [CT] Stat Exams 07/31/21 17:37 Taken CARBAMAZEPINE [REF] Stat Lab 07/31/21 17:49 Received CULTURE URINE [RM] Stat Lab 07/31/21 17:38 Received PHENYTOIN [REF] Stat Lab 07/31/21 17:49 Received Sodium Chloride 0.9% [Saline Flush] Med 07/31/21 17:37 Active 10 ml FLUSH ASDIRECTED PRN Peripheral IV Insertion Adult [OM.PC] Stat Oth 07/31/21 17:38 Ordered Medication Orders Sodium Chloride (Sodium Chloride 0.9% 10 Ml Syringe) 10 ml FLUSH ASDIRECTED PRN PRN Reason: Keep Vein Open Labs: Laboratory Tests 07/31/21 07/31/21 07/31/21 Range/Units 17:38 17:38 17:49 WBC 6.6 (4.0-10.2) K/uL RBC 4.35 (4.33-5.41) M/uL Hgb 14.3 (13.1-16.8) g/dL Hct 42.4 (39.0-49.0) % MCV 97.5 (84.0-98.0) fL MCH 32.9 (28.2-33.3) pg MCHC 33.7 (31.7-36.0) g/dL RDW 13.3 (11.2-14.1) % Plt Count 172 (150-350) K/uL Neut % (Auto) 74.2 (45.0-80.0) % Lymph % (Auto) 12.7 (10.0-50.0) % Barren % (Auto) 9.5 (2.0-14.0) % Eos % (Auto) 3.3 (0.0-5.0) % Baso % (Auto) 0.3 (0.0-2.0) % Neut # (Auto) 4.92 (1.40-7.00) K/uL Lymph # (Auto) 0.84 (0.50-3.50) K/uL Barren # (Auto) 0.63 (0.00-1.00) K/uL Eos # (Auto) 0.22 (0.00-0.50) K/uL Baso # (Auto) 0.02 (0.00-0.20) K/uL PT (9.5-12.0) SEC INR APTT (24.5-32.8) SEC POC VBG pH (7.31-7.41) POC VBG pCO2 (41-51) mmHg POC VBG pO2 mmHg POC VBG HCO3 (23-28) mmol/L POC Venous O2 Sat % VBG Base Excess (-(2)-3) mmol/L Sodium (136-145) mmol/L Potassium (3.5-5.1) mmol/L Chloride (98-107) mmol/L Carbon Dioxide (21.0-32.0) mmol/L POC Venous Total CO2 mmol/L Anion Gap (7-15) meq/L BUN (7-18) mg/dL Creatinine (0.51-1.17) mg/dL Est Cr Clr Drug Dosing Estimated GFR (MDRD) mL/min Glucose (70-99) mg/dL Lactic Acid (0.4-2.0) mmol/L Calcium (8.5-10.1) mg/dL Total Bilirubin (0.2-1.0) mg/dL AST (15-37) U/L ALT (12-78) U/L Alkaline Phosphatase (46-116) IU/L Ammonia (11-32) umol/L Troponin I High Sens (<=76) ng/L C-Reactive Protein (<=0.9) mg/dL Total Protein (6.4-8.2) g/dL Albumin (3.4-5.0) g/dL Specimen Type [place] Urine Color Yellow Urine Appearance Slightly cloudy Urine pH 5.5 (5.0-9.0) Ur Specific [place] 1.020 (1.005-1.030) Urine Protein Negative (NEGATIVE) mg/dL Urine Glucose (UA) Negative (NEGATIVE) mg/dL Urine Ketones Negative (NEGATIVE) mg/dL Urine Occult Blood Negative (NEGATIVE) Urine Nitrite Negative (NEGATIVE) Urine Bilirubin Negative (NEGATIVE) Urine Urobilinogen 0.2 (0.2-1.0) E.U./dL Ur Leukocyte Esterase Small H (NEGATIVE) Urine RBC 0-5 /HPF Urine WBC 5-10 H /HPF Ur Epithelial Cells Occasional /LPF Urine Bacteria Occasional (NONE TO FEW) /HPF Urine Mucus Few H (NEGATIVE) /LPF Urine Opiates Screen Negative (NEGATIVE) Ur Buprenorphine Scrn Negative (NEGATIVE) Ur Oxycodone Screen Negative (NEGATIVE) Ur EDDP (Meth Metab) Negative (NEGATIVE) Ur Barbiturates Screen Negative (NEGATIVE) Ur Tricyclics Screen Positive H (NEGATIVE) Ur Amphetamine Screen Negative (NEGATIVE) U Methamphetamines Scrn Negative (NEGATIVE) Urine MDMA Screen Negative (NEGATIVE) U Benzodiazepines Scrn Negative (NEGATIVE) U Cocaine Metab Screen Negative (NEGATIVE) U Marijuana (THC) Screen Negative (NEGATIVE) Ethyl Alcohol (0.000-0.080) g/dL 07/31/21 07/31/21 07/31/21 Range/Units 17:49 17:49 17:49 WBC (4.0-10.2) K/uL RBC (4.33-5.41) M/uL Hgb (13.1-16.8) g/dL Hct (39.0-49.0) % MCV (84.0-98.0) fL MCH (28.2-33.3) pg MCHC (31.7-36.0) g/dL RDW (11.2-14.1) % Plt Count (150-350) K/uL Neut % (Auto) (45.0-80.0) % Lymph % (Auto) (10.0-50.0) % Barren % (Auto) (2.0-14.0) % Eos % (Auto) (0.0-5.0) % Baso % (Auto) (0.0-2.0) % Neut # (Auto) (1.40-7.00) K/uL Lymph # (Auto) (0.50-3.50) K/uL Barren # (Auto) (0.00-1.00) K/uL Eos # (Auto) (0.00-0.50) K/uL Baso # (Auto) (0.00-0.20) K/uL PT 10.0 (9.5-12.0) SEC INR 1.0 APTT 32.1 (24.5-32.8) SEC POC VBG pH (7.31-7.41) POC VBG pCO2 (41-51) mmHg POC VBG pO2 mmHg POC VBG HCO3 (23-28) mmol/L POC Venous O2 Sat % VBG Base Excess (-(2)-3) mmol/L Sodium 143 (136-145) mmol/L Potassium 4.5 (3.5-5.1) mmol/L Chloride 107 (98-107) mmol/L Carbon Dioxide 34.1 H (21.0-32.0) mmol/L POC Venous Total CO2 mmol/L Anion Gap 6.4 L (7-15) meq/L BUN 16 (7-18) mg/dL Creatinine 0.87 (0.51-1.17) mg/dL Est Cr Clr Drug Dosing TNP Estimated GFR (MDRD) > 60 mL/min Glucose 72 (70-99) mg/dL Lactic Acid 0.9 (0.4-2.0) mmol/L Calcium 7.9 L (8.5-10.1) mg/dL Total Bilirubin 0.2 (0.2-1.0) mg/dL AST 15 (15-37) U/L ALT 22 (12-78) U/L Alkaline Phosphatase 88 (46-116) IU/L Ammonia (11-32) umol/L Troponin I High Sens 6 (<=76) ng/L C-Reactive Protein 2.8 H (<=0.9) mg/dL Total Protein 6.3 L (6.4-8.2) g/dL Albumin 3.1 L (3.4-5.0) g/dL Specimen Type Urine Color Urine Appearance Urine pH (5.0-9.0) Ur Specific [place] (1.005-1.030) Urine Protein (NEGATIVE) mg/dL Urine Glucose (UA) (NEGATIVE) mg/dL Urine Ketones (NEGATIVE) mg/dL Urine Occult Blood (NEGATIVE) Urine Nitrite (NEGATIVE) Urine Bilirubin (NEGATIVE) Urine Urobilinogen (0.2-1.0) E.U./dL Ur Leukocyte Esterase (NEGATIVE) Urine RBC /HPF Urine WBC /HPF Ur Epithelial Cells /LPF Urine Bacteria (NONE TO FEW) /HPF Urine Mucus (NEGATIVE) /LPF Urine Opiates Screen (NEGATIVE) Ur Buprenorphine Scrn (NEGATIVE) Ur Oxycodone Screen (NEGATIVE) Ur EDDP (Meth Metab) (NEGATIVE) Ur Barbiturates Screen (NEGATIVE) Ur Tricyclics Screen (NEGATIVE) Ur Amphetamine Screen (NEGATIVE) U Methamphetamines Scrn (NEGATIVE) Urine MDMA Screen (NEGATIVE) U Benzodiazepines Scrn (NEGATIVE) U Cocaine Metab Screen (NEGATIVE) U Marijuana (THC) Screen (NEGATIVE) Ethyl Alcohol 0.004 (0.000-0.080) g/dL 07/31/21 07/31/21 Range/Units 17:49 17:49 WBC (4.0-10.2) K/uL RBC (4.33-5.41) M/uL Hgb (13.1-16.8) g/dL Hct (39.0-49.0) % MCV (84.0-98.0) fL MCH (28.2-33.3) pg MCHC (31.7-36.0) g/dL RDW (11.2-14.1) % Plt Count (150-350) K/uL Neut % (Auto) (45.0-80.0) % Lymph % (Auto) (10.0-50.0) % Barren % (Auto) (2.0-14.0) % Eos % (Auto) (0.0-5.0) % Baso % (Auto) (0.0-2.0) % Neut # (Auto) (1.40-7.00) K/uL Lymph # (Auto) (0.50-3.50) K/uL Barren # (Auto) (0.00-1.00) K/uL Eos # (Auto) (0.00-0.50) K/uL Baso # (Auto) (0.00-0.20) K/uL PT (9.5-12.0) SEC INR APTT (24.5-32.8) SEC POC VBG pH 7.37 (7.31-7.41) POC VBG pCO2 56 H* (41-51) mmHg POC VBG pO2 42 mmHg POC VBG HCO3 32 H (23-28) mmol/L POC Venous O2 Sat 75 % VBG Base Excess 5 H (-(2)-3) mmol/L Sodium (136-145) mmol/L Potassium (3.5-5.1) mmol/L Chloride (98-107) mmol/L Carbon Dioxide (21.0-32.0) mmol/L POC Venous Total CO2 33 mmol/L Anion Gap (7-15) meq/L BUN (7-18) mg/dL Creatinine (0.51-1.17) mg/dL Est Cr Clr Drug Dosing Estimated GFR (MDRD) mL/min Glucose (70-99) mg/dL Lactic Acid (0.4-2.0) mmol/L Calcium (8.5-10.1) mg/dL Total Bilirubin (0.2-1.0) mg/dL AST (15-37) U/L ALT (12-78) U/L Alkaline Phosphatase (46-116) IU/L Ammonia 1 L (11-32) umol/L Troponin I High Sens (<=76) ng/L C-Reactive Protein (<=0.9) mg/dL Total Protein (6.4-8.2) g/dL Albumin (3.4-5.0) g/dL Specimen Type Urine Color Urine Appearance Urine pH (5.0-9.0) Ur Specific [place] (1.005-1.030) Urine Protein (NEGATIVE) mg/dL Urine Glucose (UA) (NEGATIVE) mg/dL Urine Ketones (NEGATIVE) mg/dL Urine Occult Blood (NEGATIVE) Urine Nitrite (NEGATIVE) Urine Bilirubin (NEGATIVE) Urine Urobilinogen (0.2-1.0) E.U./dL Ur Leukocyte Esterase (NEGATIVE) Urine RBC /HPF Urine WBC /HPF Ur Epithelial Cells /LPF Urine Bacteria (NONE TO FEW) /HPF Urine Mucus (NEGATIVE) /LPF Urine Opiates Screen (NEGATIVE) Ur Buprenorphine Scrn (NEGATIVE) Ur Oxycodone Screen (NEGATIVE) Ur EDDP (Meth Metab) (NEGATIVE) Ur Barbiturates Screen (NEGATIVE) Ur Tricyclics Screen (NEGATIVE) Ur Amphetamine Screen (NEGATIVE) U Methamphetamines Scrn (NEGATIVE) Urine MDMA Screen (NEGATIVE) U Benzodiazepines Scrn (NEGATIVE) U Cocaine Metab Screen (NEGATIVE) U Marijuana (THC) Screen (NEGATIVE) Ethyl Alcohol (0.000-0.080) g/dL Meds: Medications Generic Name Dose Route Start Last Admin Trade Name Freq PRN Reason Stop Dose Admin Sodium Chloride 10 ml 07/31/21 17:37 Sodium Chloride 0.9% 10 Ml Syringe FLUSH ASDIRECTED PRN Keep Vein Open - Re-Assessments/Exams Free Text/Narrative Re-Assessment/Exam: 07/31/21 18:52 The patient responded appropriately to painful stimuli by withdrawal. Shortly after his arrival he started open his eyes spontaneously and started to move spontaneously. This really appears to be a postictal period. His laboratory evaluation is rather unremarkable. His venous blood gas does show some chronic hypercapnia with appropriate metabolic compensation. He is not acidotic. CT of his head is negative no acute bleed. He is now awake alert and appropriate. Does not recall the incident today and denies any complaints what soever at this time. This is really the sequelae of a breakthrough seizure and the underlying epilepsy. His Tegretol and Dilantin levels have been drawn. These are sent out. These will be sent back to his primary care when they are available. We will discharge him back to the halfway and notify his primary care provider of the breakthrough seizure today. I do not feel the need to change his therapy at this time. Discharge directions as below are explained to the patient he was comfortable with this plan his questions are answered. Departure - Departure Time of Disposition: 18:50 Disposition: DC/Tfer to SNF 03 Clinical Impression: Breakthrough seizure Epilepsy Qualifiers: Epilepsy type: unspecified Intractability: not intractable Status epilepticus: without status epilepticus Qualified Code(s): G40.909 - Epilepsy, unspecified, not intractable, without status epilepticus - Discharge Information Forms: ED Department Discharge Additional Instructions: Continue all previous medications and therapies. Drug levels of your seizure medications have been drawn and will be sent to your PCP when available. Return to the ED if new or worsening symptoms. Notify PCP of breakthrough seizure today. Sepsis Event Note (ED) - Focused Exam Vital Signs: Vital Signs Temp Pulse Resp BP Pulse Ox 07/31/21 17:50 97.8 F 75 18 131/72 94 L - My Orders Last 24 Hours: My Active Orders 07/31/21 17:37 Head wo Cont [CT] Stat Sodium Chloride 0.9% [Saline Flush] 10 ml FLUSH ASDIRECTED PRN 07/31/21 17:38 Peripheral IV Care [RC] . DIRECTED CULTURE URINE [RM] Stat Peripheral IV Insertion Adult [OM.PC] Stat 07/31/21 17:44 Urinary Catheter Assessment [RC] ASDIRECTED 07/31/21 17:45 Woodward Catheter Insertion [Insert Urinary Catheter] [OM.PC] Q24H 07/31/21 17:49 CARBAMAZEPINE [REF] Stat PHENYTOIN [REF] Stat - Assessment/Plan Last 24 Hours: My Active Orders 07/31/21 17:37 Head wo Cont [CT] Stat Sodium Chloride 0.9% [Saline Flush] 10 ml FLUSH ASDIRECTED PRN 07/31/21 17:38 Peripheral IV Care [RC] . DIRECTED CULTURE URINE [RM] Stat Peripheral IV Insertion Adult [OM.PC] Stat 07/31/21 17:44 Urinary Catheter Assessment [RC] ASDIRECTED 07/31/21 17:45 Woodward Catheter Insertion [Insert Urinary Catheter] [OM.PC] Q24H 07/31/21 17:49 CARBAMAZEPINE [REF] Stat PHENYTOIN [REF] Stat
[2021-07-31 17:52] VITALS: BP 131/72; PULSE 75
[2021-07-31 18:15] LABS: BARBITURATE SCREEN,URINE NEGATIVE (NEGATIVE); BENZODIAZEPINES SCREEN,URINE NEGATIVE (NEGATIVE); EDDP,URINE SCREEN NEGATIVE (NEGATIVE); TCA SCREEN,URINE POSITIVE (NEGATIVE); THC SCREEN,URINE 50 NG/ML NEGATIVE (NEGATIVE)
[2021-07-31 18:16] LABS: BUPRENORPHINE SCREEN,URINE NEGATIVE (NEGATIVE)
[2021-07-31 18:18] LABS: CHLORIDE,CL 107 mmol/L (98-107); SODIUM,NA 143 mmol/L (136-145)
[2021-07-31 18:21] LABS: ANION GAP 6.4 meq/L (7-15); PTT,PARTIAL THROMBOPLSTIN TIME 32.1 SEC (24.5-32.8)
== END 2021-07-31 20:20 ==
LOC: LL.ED 17:31
DX: G40.909 Epilepsy, unspecified, not intractable, without status epilepticus (principal); I11.0 Hypertensive heart disease with heart failure; I50.9 Heart failure, unspecified; J44.9 Chronic obstructive pulmonary disease, unspecified; K21.9 Gastro-esophageal reflux disease without esophagitis; Z86.73 Personal history of transient ischemic attack (TIA), and cerebral infarction without residual deficits; Z79.899 Other long term (current) drug therapy; Z79.82 Long term (current) use of aspirin
CPT/HCPCS: 36415; 70450; 80053; 80156; 80185; 80305-QW; 80307; 81001; 82140; 82803; 83605; 84484; 85025; 85610; 85730; 86140; 87086; 93005; 99284; 99285-25

== ENCOUNTER 2021-08-02 14:26 | Emergency (ER) | payer MEDICARE, BC, MEDICAID ==
[2021-08-02] MEDS ORDERED: Sodium Chloride 0.9% 10 ML Syringe FLUSH PRN (14:31)
[2021-08-02] MEDS ORDERED: Sodium Chloride 0.9% 1,000 ML IV SCH (14:45)
[2021-08-02] MEDS ORDERED: fentaNYL 50 MCG/ML SDV IVPUSH ONE (14:53)
--- NOTE | 2021-08-02 14:53 | EDM.PDOC ---
ED HPI GENERAL MEDICAL PROBLEM - General Chief Complaint: Neuro Symptoms/Deficits Stated Complaint: left sided weakness Time Seen by Provider: 08/02/21 14:31 Source of Information: Reports: Fpc Records, RN - History of Present Illness INITIAL COMMENTS - FREE TEXT/NARRATIVE: Fadi is a 76 y/o male who lives at the [facility] and he was sent here to the ER for increased weakness. He had apparently been seen at the correction by his PCP Carlee Garcia PA-C who noted the increased weakness on his left side. He has a hx of a previous CVA with residual right sided weakness present. He is hard to asse ss and some times he answers appropriately and some times he does not. - Related Data Allergies Allergy/AdvReac Type Severity Reaction Status Date / Time No Known Allergies Allergy Verified 08/02/21 14:32 Home Meds: Home Meds Acetaminophen [Tylenol Extra Strength] 1,000 mg PO DAILY PRN 08/28/14 [History] Benztropine Mesylate 0.5 mg PO BID@799,199908/28/14 [History] Cholecalciferol (Vitamin D3) [Vitamin D3] 2,000 units PO 0800 08/28/14 [History] Cyclobenzaprine [Flexeril] 10 mg PO DAILY@1200 08/28/14 [History] Phenytoin Sodium Extended 300 mg PO BEDTIME 08/28/14 [History] Simvastatin [Zocor] 40 mg PO BEDTIME 08/28/14 [History] bisacodyL [Dulcolax] 5 - 15 mg PO DAILY PRN 08/28/14 [History] carBAMazepine [TEGretol XR] 100 mg PO BID@799,199908/28/14 [History] carBAMazepine [TEGretol XR] 200 mg PO BID@799,199908/28/14 [History] Aspirin [Halfprin] 81 mg PO DAILY 12/03/17 [History] diphenhydrAMINE HCl/Zinc Acet [Benadryl Itch Stopping Crm] 28.3 gm TP Q4HR PRN 12/03/17 [History] Sennosides/Docusate Sodium [Senna-S Tablet] 1 each PO BID@799,199912/04/17 [History] Ipratropium/Albuterol Sulfate [Iprat-Albut 0.5-3(2.5) mg/3 ml] 1 ampule IH Q4HR PRN 01/12/20 [History] Ipratropium/Albuterol Sulfate [Iprat-Albut 0.5-3(2.5) mg/3 ml] 3 ml IH TID@0800,1400,2000 01/12/20 [History] Zoledronic Acid in Water [Reclast] 5 mg IV ASDIRECTED 01/12/20 [History] predniSONE [Prednisone] 5 mg PO 0800 01/12/20 [History] Albuterol Sulfate 1 each INH Q2HR PRN 03/06/21 [History] Furosemide [Lasix] 40 mg PO 0800 03/06/21 [History] polyethylene glycoL 3350 [MiraLAX] 1 pkt PO DAILY@12 03/06/21 [History] Lactulose 10 gm PO Q48H 04/05/21 [History] Furosemide [Lasix] 20 mg PO DAILY@1200 08/02/21 [History] Potassium Chloride 20 meq PO BID@0800,1200 08/02/21 [History] Past Medical History HEENT History: Reports: Cataract, Impaired Vision, Other (See Below) Other HEENT History: Patient was glasses. 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 Recurrent aspiration pneumonia. Previous right sixth rib fracture. Gastrointestinal History: Reports: Chronic Constipation, GERD Genitourinary History: Reports: BPH, Prostate Disorder, Other (See Below) Other Genitourinary History: Chronic prostatitis. Musculoskeletal History: Reports: Arthritis, Fracture, Osteoarthritis, Osteoporosis, Other (See Below) Other Musculoskeletal History: Distal clavicular fracture on 01/12/2020. Chronic right leg brace therapy secondary to hemiparesis. 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 Psychiatric History: Reports: Addiction, Anxiety, Dementia, Depression, Psychosis, Other (See Below) Other Psychiatric History: History of alcohol abuse. Organic brain syndrome/encephalopathy as above. Endocrine/Metabolic History: Reports: Osteopenia, Osteoporosis, Vitamin D Deficiency Hematologic History: Reports: Other (See Below) Other Hematologic History: vitamin d deficiency Dermatologic History: Reports: Seborrheic Dermatitis, Other (See Below) Other Dermatologic History: Benign Lipomatous of skin/subcu of right leg, seborrheic keratosis - Past Imaging History Past Imaging History: Reports: Swallow Study (12/03/2017.) Social & Family History - Caffeine Use Caffeine Use: Reports: Coffee - Living Situation & Occupation Living situation: Reports: Extended Care Facility ([facility]) Occupation: Disabled Review of Systems - Review of Systems Review Of Systems: See Below Reason Not Obtained: Unable to obtain from patient ED EXAM, GENERAL - Physical Exam Exam: See Below Free Text/Narrative:: Patient is a bit combative and pushes away staff on arrival. He will not answer staff. #1 Interpretation EKG Date: 08/02/21 Time: 15:04 Rhythm: NSR Rate (Beats/Min): 84 [place]: Normal P-Wave: Present QRS: Normal ST-T: Normal QT: Normal EKG Interpretation Comments: SR with some artifact due to movement Course - Vital Signs Text/Narrative:: 1431 Stroke code called prior to arrival in the ER. DOCUMENT PREPARATION SPECIALIST saw pt after he came out of CT. He was not cooperative with staff and was a bit feisty. Unable to do NIHSS on arrival. CT pending. Labs ordered. He seemed to complain of his back hurting and was given Fentanyl 25mcg IVP. 1650 CT results reviewed, no acute intracranial bleeding noted. Labs negative. Has not voided. Will send patient back to [facility] and they can obtain US there since he is continent and not voided nor allowed to be cathed. Pt denies that his back pain is any better following Tylenol, but he seems to be resting. Will given him Oxycodone IR 5mg po x 1 dose here in the ER then have his PCP address this later, since it seems more chronic in nature. Written instructions were given and he was discharged back to the correction. Last Recorded V/S: Last Vital Signs Temp 36.4 C 08/02/21 14:39 Pulse 79 08/02/21 16:01 Resp 17 08/02/21 14:39 BP 121/62 08/02/21 16:01 Pulse Ox 96 08/02/21 14:39 - Orders/Labs/Meds Orders: Active Orders 24 hr Category Date Time Status NPO [Nothing Per Oral Diet] [DIET] Diet 08/02/21 Dinner Ordered Head wo Cont [CT] Stat Exams 08/02/21 14:28 Ordered Sodium Chloride 0.9% [Normal Saline] 1,000 ml Med 08/02/21 14:45 Ordered IV ASDIRECTED Sodium Chloride 0.9% [Saline Flush] Med 08/02/21 14:31 Ordered 10 ml FLUSH ASDIRECTED PRN oxyCODONE Med 08/02/21 16:53 Once 5 mg PO ONETIME ONE Saline Lock Insert [OM.PC] Stat Oth 08/02/21 14:32 Ordered Medication Orders Sodium Chloride (Normal Saline) 1,000 mls @ 30 mls/hr IV ASDIRECTED NKECHI Stop: 08/06/21 14:33 Last Admin: 08/02/21 14:46 Dose: 30 mls/hr Documented by: LAUREN Sodium Chloride (Sodium Chloride 0.9% 10 Ml Syringe) 10 ml FLUSH ASDIRECTED PRN PRN Reason: Keep Vein Open Last Admin: 08/02/21 14:58 Dose: 10 ml Documented by: ANTONIA Labs: Laboratory Tests 08/02/21 08/02/21 08/02/21 Range/Units 14:21 14:21 14:21 WBC 8.7 (4.0-10.2) K/uL RBC 4.73 (4.33-5.41) M/uL Hgb 15.2 (13.1-16.8) g/dL Hct 46.4 (39.0-49.0) % MCV 98.1 H (84.0-98.0) fL MCH 32.1 (28.2-33.3) pg MCHC 32.8 (31.7-36.0) g/dL RDW 13.4 (11.2-14.1) % Plt Count 173 (150-350) K/uL Neut % (Auto) 76.7 (45.0-80.0) % Lymph % (Auto) 10.6 (10.0-50.0) % Carbon % (Auto) 10.7 (2.0-14.0) % Eos % (Auto) 1.8 (0.0-5.0) % Baso % (Auto) 0.2 (0.0-2.0) % Neut # (Auto) 6.63 (1.40-7.00) K/uL Lymph # (Auto) 0.92 (0.50-3.50) K/uL Carbon # (Auto) 0.93 (0.00-1.00) K/uL Eos # (Auto) 0.16 (0.00-0.50) K/uL Baso # (Auto) 0.02 (0.00-0.20) K/uL PT 11.2 (9.5-12.0) SEC INR 1.1 APTT 35.9 H (24.5-32.8) SEC Sodium 141 (136-145) mmol/L Potassium 4.3 (3.5-5.1) mmol/L Chloride 104 (98-107) mmol/L Carbon Dioxide 32.2 H (21.0-32.0) mmol/L Anion Gap 9.1 (7-15) meq/L BUN 16 (7-18) mg/dL Creatinine 1.00 (0.51-1.17) mg/dL Est Cr Clr Drug Dosing TNP Estimated GFR (MDRD) > 60 mL/min Glucose 81 (70-99) mg/dL Calcium 8.0 L (8.5-10.1) mg/dL Magnesium 2.0 (1.8-2.4) mg/dL Total Bilirubin 0.3 (0.2-1.0) mg/dL AST 16 (15-37) U/L ALT 25 (12-78) U/L Alkaline Phosphatase 86 (46-116) IU/L Total Protein 6.8 (6.4-8.2) g/dL Albumin 3.3 L (3.4-5.0) g/dL Meds: Medications Generic Name Dose Route Start Last Admin Trade Name Freq PRN Reason Stop Dose Admin Sodium Chloride 1,000 mls @ 30 mls/hr 08/02/21 14:45 08/02/21 14:46 Normal Saline IV 08/06/21 14:33 30 mls/hr ASDIRECTED NKECHI Administration Sodium Chloride 10 ml 08/02/21 14:31 08/02/21 14:58 Sodium Chloride 0.9% 10 Ml Syringe FLUSH 10 ml ASDIRECTED PRN Administration Keep Vein Open Discontinued Medications Generic Name Dose Route Start Last Admin Trade Name Naveed PRN Reason Stop Dose Admin Acetaminophen 1,000 mg 08/02/21 15:13 08/02/21 15:22 Acetaminophen 500 Mg Tab PO 08/02/21 15:14 1,000 mg ONETIME ONE Administration Fentanyl 25 mcg 08/02/21 14:53 08/02/21 14:57 Fentanyl 50 Mcg/Ml Sdv IVPUSH 08/02/21 14:54 25 mcg ONETIME ONE Administration Departure - Departure Time of Disposition: 16:56 Disposition: DC/Tfer to SNF 03 Condition: Good Clinical Impression: Weakness Back pain Qualifiers: Back pain location: low back pain Chronicity: unspecified Back pain laterality: unspecified Sciatica presence: unspecified whether sciatica present Qualified Code(s): M54.5 - Low back pain - Discharge Information *PRESCRIPTION DRUG MONITORING PROGRAM REVIEWED*: Not Applicable *COPY OF PRESCRIPTION DRUG MONITORING REPORT IN PATIENT YESICA: Not Applicable Instructions: Weakness Referrals: Carlee Garcia PA [ED Midlevel Provider] - Forms: ED Department Discharge Additional Instructions: -Resume all meds at correction -Have PCP address meds for back pain. He was given Oxycodone IR 5mg po x 1 in the ER. -Obtain UA at correction and then send results to his PCP for review -Return to ER as needed Sepsis Event Note (ED) - Focused Exam Vital Signs: Vital Signs Temp Pulse Resp BP Pulse Ox 08/02/21 16:01 79 121/62 08/02/21 15:30 80 123/78 08/02/21 14:50 82 120/68 08/02/21 14:39 36.4 C 84 17 135/70 96 - Problem List & Annotations (1) CVA, old, cognitive deficits SNOMED Code(s): 998642213, 532838295, 861017855, 048511982 Code(s): I69.319 - UNSP SYMPTOMS AND SIGNS W COGN FNCTNS FOL CEREBRAL INFRC Status: Chronic Current Visit: No Annotation/Comment:: History of left CVA with dysphagia, organic brain syndrome versus alcoholic encephalopathy, spastic right hemiparesis with no apparent change in neurological status. (2) Weakness SNOMED Code(s): 52340564 Code(s): R53.1 - WEAKNESS Status: Acute Current Visit: Yes Annotation/Comment:: New weakness as noted today by PCP. CT negative for acute intracranial findings. Will have correction staff obtain UA and send results to PCP. Labs negative today in ER. (3) Back pain SNOMED Code(s): 084508442 Code(s): M54.9 - DORSALGIA, UNSPECIFIED Status: Acute Current Visit: Yes Annotation/Comment:: Seemed more chronic in nature today. Given Fentanyl 25mcg IVP, APAP 1gm po, and Oxycodone IR 5mg po x 1 in the ER. Will have PCP address further meds for back pain. Qualifiers: Back pain location: low back pain Chronicity: unspecified Back pain laterality: unspecified Sciatica presence: unspecified whether sciatica present Qualified Code(s): M54.5 - Low back pain - Problem List Review Problem List Initiated/Reviewed/Updated: Yes - My Orders Last 24 Hours: My Active Orders 08/02/21 14:28 Head wo Cont [CT] Stat 08/02/21 14:31 Sodium Chloride 0.9% [Saline Flush] 10 ml FLUSH ASDIRECTED PRN 08/02/21 14:32 Saline Lock Insert [OM.PC] Stat 08/02/21 14:45 Sodium Chloride 0.9% [Normal Saline] 1,000 ml IV ASDIRECTED 08/02/21 16:53 oxyCODONE 5 mg PO ONETIME ONE 08/02/21 Dinner NPO [Nothing Per Oral Diet] [DIET] - Assessment/Plan Last 24 Hours: My Active Orders 08/02/21 14:28 Head wo Cont [CT] Stat 08/02/21 14:31 Sodium Chloride 0.9% [Saline Flush] 10 ml FLUSH ASDIRECTED PRN 08/02/21 14:32 Saline Lock Insert [OM.PC] Stat 08/02/21 14:45 Sodium Chloride 0.9% [Normal Saline] 1,000 ml IV ASDIRECTED 08/02/21 16:53 oxyCODONE 5 mg PO ONETIME ONE 08/02/21 Dinner NPO [Nothing Per Oral Diet] [DIET] Plan: As above Discharge back to [facility]
[2021-08-02 15:09] LABS: ANION GAP 9.1 meq/L (7-15); CHLORIDE,CL 104 mmol/L (98-107); SODIUM,NA 141 mmol/L (136-145)
[2021-08-02] MEDS ORDERED: Acetaminophen 500 MG Tab PO ONE (15:13)
[2021-08-02 15:21] LABS: PTT,PARTIAL THROMBOPLSTIN TIME 35.9 SEC (24.5-32.8)
[2021-08-02 16:01] VITALS: PULSE 79
[2021-08-02] MEDS ORDERED: oxyCODONE 5 MG Tab PO ONE (16:53)
[2021-08-02 17:52] VITALS: BP 106/60
== END 2021-08-02 17:25 ==
LOC: LL.ED 14:26
DX: R53.1 Weakness (principal); M54.5 Low back pain; I11.0 Hypertensive heart disease with heart failure; I50.9 Heart failure, unspecified; E78.00 Pure hypercholesterolemia, unspecified; J44.9 Chronic obstructive pulmonary disease, unspecified; M19.90 Unspecified osteoarthritis, unspecified site; Z86.73 Personal history of transient ischemic attack (TIA), and cerebral infarction without residual deficits; Z79.82 Long term (current) use of aspirin; Z79.899 Other long term (current) drug therapy
CPT/HCPCS: 36415; 70450; 80053; 83735; 85025; 85610; 85730; 93005; 96374; 99284; 99285-25; A9270-GY; J3010; J7030

== ENCOUNTER 2021-09-30 23:15 | Emergency (ER) | payer MEDICARE, BC, MEDICAID ==
[2021-09-30] MEDS ORDERED: Sodium Chloride 0.9% 10 ML Syringe FLUSH PRN (23:17)
--- NOTE | 2021-10-01 00:11 | EDM.PDOC ---
ED HPI GENERAL MEDICAL PROBLEM - General Chief Complaint: Neuro Symptoms/Deficits Stated Complaint: stroke code Time Seen by Provider: 10/01/21 00:00 Source of Information: Reports: Skilled Nursing Records - History of Present Illness INITIAL COMMENTS - FREE TEXT/NARRATIVE: Fadi is a 76 y/o male who is sent to the ER from the [facility] where he lives for possible stroke sx. He was found by nursing staff on the floor tonight. He was not talking appropriately and he was gazing off to the right. He does have a hx of a CVA in the past with right sided hemiplegia, but he also has a seizure disorder which confounds his presentation. On arrival to the ER he seems to be at his baseline and answering a few questions in his usual one-two word answers. He is no longer gazing to the right. - Related Data Allergies Allergy/AdvReac Type Severity Reaction Status Date / Time No Known Allergies Allergy Verified 09/30/21 23:45 Home Meds: Home Meds Acetaminophen [Tylenol Extra Strength] 1,000 mg PO DAILY PRN 08/28/14 [History] Benztropine Mesylate 0.5 mg PO BID@0800,199908/28/14 [History] Cholecalciferol (Vitamin D3) [Vitamin D3] 2,000 units PO DAILY 08/28/14 [History] Cyclobenzaprine [Flexeril] 10 mg PO DAILY@1200 08/28/14 [History] Phenytoin Sodium Extended 300 mg PO BEDTIME 08/28/14 [History] Simvastatin [Zocor] 40 mg PO BEDTIME 08/28/14 [History] bisacodyL [Dulcolax] 5 - 15 mg PO DAILY PRN 08/28/14 [History] carBAMazepine [TEGretol XR] 100 mg PO BID@08,199908/28/14 [History] carBAMazepine [TEGretol XR] 200 mg PO BID@799,199908/28/14 [History] Aspirin [Halfprin] 81 mg PO DAILY 12/03/17 [History] diphenhydrAMINE HCl/Zinc Acet [Benadryl Itch Stopping Crm] 28.3 gm TP Q4HR PRN 12/03/17 [History] Sennosides/Docusate Sodium [Senna-S Tablet] 1 each PO BID@08,199912/04/17 [History] Ipratropium/Albuterol Sulfate [Iprat-Albut 0.5-3(2.5) mg/3 ml] 1 ampule IH Q4HR PRN 01/12/20 [History] Ipratropium/Albuterol Sulfate [Iprat-Albut 0.5-3(2.5) mg/3 ml] 3 ml IH BID@0800,2000 01/12/20 [History] Zoledronic Acid in Water [Reclast] 5 mg IV ASDIRECTED 01/12/20 [History] predniSONE [Prednisone] 5 mg PO DAILY 01/12/20 [History] Albuterol Sulfate 1 each INH Q2HR PRN 03/06/21 [History] Furosemide [Lasix] 40 mg PO DAILY 03/06/21 [History] polyethylene glycoL 3350 [MiraLAX] 1 pkt PO DAILY@12 03/06/21 [History] Lactulose 10 gm PO Q48H 04/05/21 [History] Furosemide [Lasix] 20 mg PO DAILY@1200 08/02/21 [History] Potassium Chloride 20 meq PO BID@0800,1200 08/02/21 [History] Past Medical History HEENT History: Reports: Cataract, Impaired Vision, Other (See Below) Other HEENT History: Patient was glasses. 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 Recurrent aspiration pneumonia. Previous right sixth rib fracture. Gastrointestinal History: Reports: Chronic Constipation, GERD Genitourinary History: Reports: BPH, Prostate Disorder, Other (See Below) Other Genitourinary History: Chronic prostatitis. Musculoskeletal History: Reports: Arthritis, Fracture, Osteoarthritis, Osteoporosis, Other (See Below) Other Musculoskeletal History: Distal clavicular fracture on 01/12/2020. Chronic right leg brace therapy secondary to hemiparesis. 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 Psychiatric History: Reports: Addiction, Anxiety, Dementia, Depression, Psychosis, Other (See Below) Other Psychiatric History: History of alcohol abuse. Organic brain syndrome/encephalopathy as above. Endocrine/Metabolic History: Reports: Osteopenia, Osteoporosis, Vitamin D Deficiency Hematologic History: Reports: Other (See Below) Other Hematologic History: vitamin d deficiency Dermatologic History: Reports: Seborrheic Dermatitis, Other (See Below) Other Dermatologic History: Benign Lipomatous of skin/subcu of right leg, seborrheic keratosis - Past Imaging History Past Imaging History: Reports: Swallow Study (12/03/2017.) Social & Family History - Caffeine Use Caffeine Use: Reports: Coffee - Living Situation & Occupation Living situation: Reports: Extended Care Facility ([facility] in [facility]) Occupation: Disabled Review of Systems - Review of Systems Review Of Systems: Comprehensive ROS is negative, except as noted in HPI. Reason Not Obtained: Difficult to obtain due to patient's condition ED EXAM, GENERAL - Physical Exam Exam: See Below General Appearance: Alert, Other (Elderly male, lying quietly on cart. He does acknowledge my presence and can nod and say one-two word answers.) Ears: Normal External Exam, Hearing Grossly Normal Nose: Normal Inspection, Normal Mucosa Throat/Mouth: Normal Voice Head: Atraumatic, Normocephalic Neck: Supple Respiratory/Chest: No Respiratory Distress, Lungs Clear, Chest Non-Tender Cardiovascular: Normal Peripheral Pulses, Regular Rate, Rhythm, No Murmur GI/Abdominal: Normal Bowel Sounds, Soft (Male) Exam: Deferred Rectal (Males) Exam: Deferred Back Exam: Normal Inspection Extremities: Normal Inspection, Normal Capillary Refill, Other (Note ankle braces on both legs) Neurological: Alert, CN II-XII Intact, Normal Cognition, Other (NIHSS=13, but patient seems to be at his baseline) Skin Exam: Warm, Dry, Intact, Normal Color #1 Interpretation EKG Date: 10/01/21 Time: 23:47 Rhythm: NSR Rate (Beats/Min): 95 [place]: Normal P-Wave: Present QRS: Normal ST-T: Normal QT: Normal EKG Interpretation Comments: NSR Course - Vital Signs Text/Narrative:: The patient was seen by the ELECTRONIC ENGINEERING TECHNICIAN. Stroke Code had been called prior to his arrival. Labs, EKG, and CT ordered. Patient at his baseline when ELECTRONIC ENGINEERING TECHNICIAN assesses him. Note he has a seizure disorder also and he could have have been post-ictal when found on the floor. 1225 CT Head negative for any acute stroke, will order CT Angio fo the Head and Neck. Labs pending. Patient reports doing fine. 0040 Labs reviewed. Note BUN=27 and Stadium Attendant=1.28, both elevated from recent admission, will give him a 500ml fluid bolus. All other labs negative. Will get CT Angio results and if both are negative, will plan to send pt back to the [facility]. 0[address] report on CT Angio Head/Neck, will send back to the [facility]. Remained stable until departing for the custodial. Last Recorded V/S: Last Vital Signs Temp 37.1 C 10/01/21 00:05 Pulse 93 10/01/21 00:31 Resp 13 10/01/21 00:31 BP 130/85 10/01/21 00:31 Pulse Ox 99 10/01/21 00:31 - Orders/Labs/Meds Orders: Active Orders 24 hr Category Date Time Status Blood Glucose Check, Bedside [RC] ONETIME Care 09/30/21 23:32 Active Cardiac Monitoring [RC] . DIRECTED Care 09/30/21 23:17 Active Peripheral IV Care [RC] . DIRECTED Care 09/30/21 23:17 Active Ang Head [CT] Stat Exams 10/01/21 00:24 Ordered Ang Neck [CT] Stat Exams 10/01/21 00:24 Ordered Head wo Cont [CT] Stat Exams 09/30/21 23:17 Taken PROLACTIN [REF] Stat Lab 09/30/21 23:57 Received Lactated Ringers [Ringers, Lactated] 1,000 ml Med 10/01/21 00:40 Ordered IV .BOLUS Sodium Chloride 0.9% [Saline Flush] Med 09/30/21 23:17 Active 10 ml FLUSH ASDIRECTED PRN Peripheral IV Insertion Adult [OM.PC] Routine Oth 09/30/21 23:17 Ordered Medication Orders Lactated Ringer's (Ringers, Lactated) 1,000 mls @ 999 mls/hr IV .BOLUS ONE Stop: 10/01/21 01:40 Sodium Chloride (Sodium Chloride 0.9% 10 Ml Syringe) 10 ml FLUSH ASDIRECTED PRN PRN Reason: Keep Vein Open Labs: Laboratory Tests 09/30/21 09/30/21 09/30/21 Range/Units 23:57 23:57 23:57 WBC 10.2 (4.0-10.2) K/uL RBC 4.89 (4.33-5.41) M/uL Hgb 15.4 (13.1-16.8) g/dL Hct 47.3 (39.0-49.0) % MCV 96.7 (84.0-98.0) fL MCH 31.5 (28.2-33.3) pg MCHC 32.6 (31.7-36.0) g/dL RDW 13.7 (11.2-14.1) % Plt Count 184 (150-350) K/uL Neut % (Auto) 81.2 H (45.0-80.0) % Lymph % (Auto) 10.6 (10.0-50.0) % [place] % (Auto) 7.5 (2.0-14.0) % Eos % (Auto) 0.5 (0.0-5.0) % Baso % (Auto) 0.2 (0.0-2.0) % Neut # (Auto) 8.31 H (1.40-7.00) K/uL Lymph # (Auto) 1.09 (0.50-3.50) K/uL [place] # (Auto) 0.77 (0.00-1.00) K/uL Eos # (Auto) 0.05 (0.00-0.50) K/uL Baso # (Auto) 0.02 (0.00-0.20) K/uL PT 14.0 H (9.5-12.0) SEC INR 1.4 APTT 37.7 H (24.5-32.8) SEC D-Dimer, Quantitative (0-400) ng/mL Sodium 146 H (136-145) mmol/L Potassium 4.5 (3.5-5.1) mmol/L Chloride 106 (98-107) mmol/L Carbon Dioxide 32.0 (21.0-32.0) mmol/L Anion Gap 12.5 (7-15) meq/L BUN 27 H (7-18) mg/dL Creatinine 1.28 H (0.51-1.17) mg/dL Est Cr Clr Drug Dosing TNP Estimated GFR (MDRD) 55 mL/min Glucose 103 H (70-99) mg/dL Calcium 8.6 (8.5-10.1) mg/dL Magnesium 2.2 (1.8-2.4) mg/dL Total Bilirubin 0.4 (0.2-1.0) mg/dL AST 22 (15-37) U/L ALT 34 (12-78) U/L Alkaline Phosphatase 93 (46-116) IU/L Creatine Kinase 52 (26-308) U/L Troponin I High Sens 6 (<=76) ng/L NT-Pro-B Natriuret Pep 120 (0-125) pg/mL Total Protein 6.7 (6.4-8.2) g/dL Albumin 3.5 (3.4-5.0) g/dL 09/30/21 Range/Units 23:57 WBC (4.0-10.2) K/uL RBC (4.33-5.41) M/uL Hgb (13.1-16.8) g/dL Hct (39.0-49.0) % MCV (84.0-98.0) fL MCH (28.2-33.3) pg MCHC (31.7-36.0) g/dL RDW (11.2-14.1) % Plt Count (150-350) K/uL Neut % (Auto) (45.0-80.0) % Lymph % (Auto) (10.0-50.0) % [place] % (Auto) (2.0-14.0) % Eos % (Auto) (0.0-5.0) % Baso % (Auto) (0.0-2.0) % Neut # (Auto) (1.40-7.00) K/uL Lymph # (Auto) (0.50-3.50) K/uL [place] # (Auto) (0.00-1.00) K/uL Eos # (Auto) (0.00-0.50) K/uL Baso # (Auto) (0.00-0.20) K/uL PT (9.5-12.0) SEC INR APTT (24.5-32.8) SEC D-Dimer, Quantitative 178 (0-400) ng/mL Sodium (136-145) mmol/L Potassium (3.5-5.1) mmol/L Chloride (98-107) mmol/L Carbon Dioxide (21.0-32.0) mmol/L Anion Gap (7-15) meq/L BUN (7-18) mg/dL Creatinine (0.51-1.17) mg/dL Est Cr Clr Drug Dosing Estimated GFR (MDRD) mL/min Glucose (70-99) mg/dL Calcium (8.5-10.1) mg/dL Magnesium (1.8-2.4) mg/dL Total Bilirubin (0.2-1.0) mg/dL AST (15-37) U/L ALT (12-78) U/L Alkaline Phosphatase (46-116) IU/L Creatine Kinase (26-308) U/L Troponin I High Sens (<=76) ng/L NT-Pro-B Natriuret Pep (0-125) pg/mL Total Protein (6.4-8.2) g/dL Albumin (3.4-5.0) g/dL Meds: Medications Generic Name Dose Route Start Last Admin Trade Name Freq PRN Reason Stop Dose Admin Lactated Ringer's 1,000 mls @ 999 mls/hr 10/01/21 00:40 Ringers, Lactated IV 10/01/21 01:40 .BOLUS ONE Sodium Chloride 10 ml 09/30/21 23:17 Sodium Chloride 0.9% 10 Ml Syringe FLUSH ASDIRECTED PRN Keep Vein Open Discontinued Medications Generic Name Dose Route Start Last Admin Trade Name Freq PRN Reason Stop Dose Admin Iopamidol 100 ml 10/01/21 00:33 Iopamidol 755 Mg/Ml 100 Ml Bottle IVPUSH 10/01/21 00:34 ONETIME ONE Departure - Departure Time of Disposition: 01:56 Disposition: DC/Tfer to SNF 03 Condition: Good Clinical Impression: Seizure disorder Change in mental status Qualifiers: Altered mental status type: unspecified Qualified Code(s): R41.82 - Altered mental status, unspecified - Discharge Information Referrals: Carlee Garcia PA [Primary Care Provider] - Forms: ED Department Discharge Additional Instructions: -Resume all orders at custodial. Sepsis Event Note (ED) - Focused Exam Vital Signs: Vital Signs Temp Pulse Resp BP Pulse Ox 10/01/21 00:31 93 13 130/85 99 10/01/21 00:15 80 16 120/70 100 10/01/21 00:05 37.1 C 90 18 137/76 78 L - Problem List & Annotations (1) Change in mental status SNOMED Code(s): 725910309 Code(s): R41.82 - ALTERED MENTAL STATUS, UNSPECIFIED Status: Acute Current Visit: Yes Annotation/Comment:: Labs negative. CT and CT Angios negative for any new findings. Qualifiers: Altered mental status type: unspecified Qualified Code(s): R41.82 - Altered mental status, unspecified (2) Seizure disorder SNOMED Code(s): 056610198 Code(s): G40.909 - EPILEPSY, UNSP, NOT INTRACTABLE, WITHOUT STATUS EPILEPTICUS Status: Acute Current Visit: Yes Annotation/Comment:: POssible post-ictal state prior to ER visit, no seziures in ER. - Problem List Review Problem List Initiated/Reviewed/Updated: Yes - My Orders Last 24 Hours: My Active Orders 09/30/21 23:17 Cardiac Monitoring [RC] . DIRECTED Peripheral IV Care [RC] . DIRECTED Head wo Cont [CT] Stat Sodium Chloride 0.9% [Saline Flush] 10 ml FLUSH ASDIRECTED PRN Peripheral IV Insertion Adult [OM.PC] Routine 09/30/21 23:32 Blood Glucose Check, Bedside [RC] ONETIME 09/30/21 23:57 PROLACTIN [REF] Stat 10/01/21 00:24 Ang Head [CT] Stat Ang Neck [CT] Stat 10/01/21 00:40 Lactated Ringers [Ringers, Lactated] 1,000 ml IV .BOLUS - Assessment/Plan Last 24 Hours: My Active Orders 09/30/21 23:17 Cardiac Monitoring [RC] . DIRECTED Peripheral IV Care [RC] . DIRECTED Head wo Cont [CT] Stat Sodium Chloride 0.9% [Saline Flush] 10 ml FLUSH ASDIRECTED PRN Peripheral IV Insertion Adult [OM.PC] Routine 09/30/21 23:32 Blood Glucose Check, Bedside [RC] ONETIME 09/30/21 23:57 PROLACTIN [REF] Stat 10/01/21 00:24 Ang Head [CT] Stat Ang Neck [CT] Stat 10/01/21 00:40 Lactated Ringers [Ringers, Lactated] 1,000 ml IV .BOLUS Plan: As above
[2021-10-01 00:22] LABS: PTT,PARTIAL THROMBOPLSTIN TIME 37.7 SEC (24.5-32.8)
[2021-10-01 00:29] LABS: CHLORIDE,CL 106 mmol/L (98-107); SODIUM,NA 146 mmol/L (136-145)
[2021-10-01 00:31] LABS: ANION GAP 12.5 meq/L (7-15)
[2021-10-01] MEDS ORDERED: Lactated Ringers 1,000 ML IV ONE (00:34)
[2021-10-01] MEDS: Iopamidol 755 Mg/ML 100 ML Bottle IVPUSH ONE (01:15)
[2021-10-01] MEDS: Lactated Ringers 1,000 ML IV ONE (01:16)
[2021-10-01 03:13] VITALS: BP 128/85; PULSE 95
== END 2021-10-01 02:20 ==
LOC: LL.ED 23:15
DX: G40.909 Epilepsy, unspecified, not intractable, without status epilepticus (principal); R41.82 Altered mental status, unspecified; Z86.73 Personal history of transient ischemic attack (TIA), and cerebral infarction without residual deficits
CPT/HCPCS: 36415; 70450; 70496; 70498; 80053; 82550; 83735; 83880; 84146; 84484; 85025; 85379; 85610; 85730; 93005; 93010; 99284; 99285-25; J7120; Q9967

== ENCOUNTER 2021-10-07 17:31 | Emergency (ER) | payer OTHER, MEDICARE, BC, MEDICAID ==
--- NOTE | 2021-10-07 17:37 | EDM.PDOC ---
ED HPI GENERAL MEDICAL PROBLEM - General Chief Complaint: Upper Extremity Injury/Pain Stated Complaint: Fall, right elbow pain Time Seen by Provider: 10/07/21 17:31 Source of Information: Reports: EMS History Limitations: Reports: Language Barrier - History of Present Illness INITIAL COMMENTS - FREE TEXT/NARRATIVE: [facility] for concerns of a [facility] and an injury to his right arm. HPI is rather difficult to obtain as the patient really does not answer questions although is at his neurological baseline. He typically answers yes and no and that is about the extent of his verbal communication. Today at the [facility] he fell landing on his right elbow. Did not hit his head. There was no loss conscious. They noticed some skin tears to his right forearm as well as the swelling area to his right elbow. He was sent to the emergency department for further evaluation. - Related Data Allergies Allergy/AdvReac Type Severity Reaction Status Date / Time No Known Allergies Allergy Verified 09/30/21 23:45 Home Meds: Home Meds Acetaminophen [Tylenol Extra Strength] 1,000 mg PO DAILY PRN 08/28/14 [History] Benztropine Mesylate 0.5 mg PO BID@0800,199908/28/14 [History] Cholecalciferol (Vitamin D3) [Vitamin D3] 2,000 units PO DAILY 08/28/14 [History] Cyclobenzaprine [Flexeril] 10 mg PO DAILY@1200 08/28/14 [History] Phenytoin Sodium Extended 300 mg PO BEDTIME 08/28/14 [History] Simvastatin [Zocor] 40 mg PO BEDTIME 08/28/14 [History] bisacodyL [Dulcolax] 5 - 15 mg PO DAILY PRN 08/28/14 [History] carBAMazepine [TEGretol XR] 100 mg PO BID@08,199908/28/14 [History] carBAMazepine [TEGretol XR] 200 mg PO BID@799,199908/28/14 [History] Aspirin [Halfprin] 81 mg PO DAILY 12/03/17 [History] diphenhydrAMINE HCl/Zinc Acet [Benadryl Itch Stopping Crm] 28.3 gm TP Q4HR PRN 12/03/17 [History] Sennosides/Docusate Sodium [Senna-S Tablet] 1 each PO BID@08,199912/04/17 [History] Ipratropium/Albuterol Sulfate [Iprat-Albut 0.5-3(2.5) mg/3 ml] 1 ampule IH Q4HR PRN 01/12/20 [History] Ipratropium/Albuterol Sulfate [Iprat-Albut 0.5-3(2.5) mg/3 ml] 3 ml IH BID@0800,2000 01/12/20 [History] Zoledronic Acid in Water [Reclast] 5 mg IV ASDIRECTED 01/12/20 [History] predniSONE [Prednisone] 5 mg PO DAILY 01/12/20 [History] Albuterol Sulfate 1 each INH Q2HR PRN 03/06/21 [History] Furosemide [Lasix] 40 mg PO DAILY 03/06/21 [History] polyethylene glycoL 3350 [MiraLAX] 1 pkt PO DAILY@12 03/06/21 [History] Lactulose 10 gm PO Q48H 04/05/21 [History] Furosemide [Lasix] 20 mg PO DAILY@1200 08/02/21 [History] Potassium Chloride 20 meq PO BID@0800,1200 08/02/21 [History] Past Medical History HEENT History: Reports: Cataract, Impaired Vision, Other (See Below) Other HEENT History: Patient was glasses. 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 Recurrent aspiration pneumonia. Previous right sixth rib fracture. Gastrointestinal History: Reports: Chronic Constipation, GERD Genitourinary History: Reports: BPH, Prostate Disorder, Other (See Below) Other Genitourinary History: Chronic prostatitis. Musculoskeletal History: Reports: Arthritis, Fracture, Osteoarthritis, Osteoporosis, Other (See Below) Other Musculoskeletal History: Distal clavicular fracture on 01/12/2020. Chronic right leg brace therapy secondary to hemiparesis. 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 Psychiatric History: Reports: Addiction, Anxiety, Dementia, Depression, Psychosis, Other (See Below) Other Psychiatric History: History of alcohol abuse. Organic brain syndrome/encephalopathy as above. Endocrine/Metabolic History: Reports: Osteopenia, Osteoporosis, Vitamin D Deficiency Hematologic History: Reports: Other (See Below) Other Hematologic History: vitamin d deficiency Dermatologic History: Reports: Seborrheic Dermatitis, Other (See Below) Other Dermatologic History: Benign Lipomatous of skin/subcu of right leg, seborrheic keratosis - Past Imaging History Past Imaging History: Reports: Swallow Study (12/03/2017.) Social & Family History - Caffeine Use Caffeine Use: Reports: Coffee - Living Situation & Occupation Living situation: Reports: Extended Care Facility ([facility]) Occupation: Disabled Review of Systems - Review of Systems Review Of Systems: Unable To Obtain Reason Not Obtained: cognition ED EXAM, GENERAL - Physical Exam Exam: See Below Free Text/Narrative:: Difficult exam as the patient really doesn't answer appropriately which is his baseline. General Appearance: Alert, WD/WN, No Apparent Distress Eye Exam: Bilateral Eye: EOMI, PERRL Ears: Normal External Exam, Normal TMs (Right is clear left is occluded with cerumen). No: Normal Canal (Left canal occluded with cerumen. ) Nose: Normal Inspection Throat/Mouth: Normal Inspection Head: Atraumatic, Normocephalic Neck: Normal Inspection, Supple, Non-Tender, Full Range of Motion. No: Tender Lateral, Tender Midline Respiratory/Chest: No Respiratory Distress, No Accessory Muscle Use, Chest Non- Tender, Wheezing (Faint bilaterally). No: Respiratory Distress Cardiovascular: Normal Peripheral Pulses, Regular Rate, Rhythm Peripheral Pulses: 2+: Radial (L), Radial (R) GI/Abdominal: Normal Bowel Sounds, Soft (Male) Exam: Deferred Rectal (Males) Exam: Deferred Back Exam: Normal Inspection. No: Paraspinal Tenderness, Vertebral Tenderness Extremities: Normal Range of Motion (For this patient with the contraction to the right elbow.), Non-Tender, Normal Capillary Refill. No: Normal Inspection (Right arm chronic contraction. Swelling mild posterior right elbow. Contusion right posterior elbow. No bony deformity. No crepitus. 2 skin tears as well no repair. ) Neurological: Alert, No Motor/Sensory Deficits Psychiatric: Flat Affect Skin Exam: Warm, Dry, Intact, Normal Color, No Rash Course - Vital Signs Last Recorded V/S: Last Vital Signs Temp 97.8 F 10/07/21 17:37 Pulse 103 H 10/07/21 17:37 Resp 16 10/07/21 17:37 BP 111/79 10/07/21 17:37 Pulse Ox 97 10/07/21 17:37 - Orders/Labs/Meds Orders: Active Orders 24 hr Category Date Time Status Elbow 2V Rt [CR] Stat Exams 10/07/21 17:37 Taken - Radiology Interpretation Free Text/Narrative:: X-ray of the right elbow reviewed extemporaneously by myself. Is somewhat limited due to the inability to straighten the arm. There is no dislocation overt bony deformity subluxation bony abnormality. Radiological review to moriah murillo. Departure - Departure Time of Disposition: 18:14 Disposition: DC/Tfer to [facility] 03 Clinical Impression: Contusion of elbow, right Qualifiers: Encounter type: initial encounter Qualified Code(s): S50.01XA - Contusion of right elbow, initial encounter Skin tear of forearm without complication Qualifiers: Encounter type: initial encounter Laterality: right Qualified Code(s): S51.811A - Laceration without foreign body of right forearm, initial encounter - Discharge Information Instructions: Elbow Contusion, Citr-hf-Days, Skin Tear, [id number] Referrals: Carlee Garcia PA [Primary Care Provider] - Forms: ED Department Discharge Additional Instructions: Return to the [facility]. Continue previous therapies. Ice to the elbow qid for then next 3 days. Watch skin tears for signs of infection. Recheck as needed. Sepsis Event Note (ED) - Focused Exam Vital Signs: Vital Signs Temp Pulse Resp BP Pulse Ox 10/07/21 17:37 97.8 F 103 H 16 111/79 97 - My Orders Last 24 Hours: My Active Orders 10/07/21 17:37 Elbow 2V Rt [CR] Stat - Assessment/Plan Last 24 Hours: My Active Orders 10/07/21 17:37 Elbow 2V Rt [CR] Stat
[2021-10-07 17:50] VITALS: BP 111/79; PULSE 103
== END 2021-10-07 18:45 ==
LOC: LL.ED 17:31
DX: S51.811A Laceration without foreign body of right forearm, initial encounter (principal); S50.01XA Contusion of right elbow, initial encounter; I11.0 Hypertensive heart disease with heart failure; I50.9 Heart failure, unspecified; J44.9 Chronic obstructive pulmonary disease, unspecified; K21.9 Gastro-esophageal reflux disease without esophagitis; N40.0 Benign prostatic hyperplasia without lower urinary tract symptoms; M19.90 Unspecified osteoarthritis, unspecified site; Z86.73 Personal history of transient ischemic attack (TIA), and cerebral infarction without residual deficits; Z79.82 Long term (current) use of aspirin; Z79.899 Other long term (current) drug therapy; W19.XXXA Unspecified fall, initial encounter; Y92.129 Unspecified place in nursing home as the place of occurrence of the external cause
CPT/HCPCS: 73070-RT; 99283